=== PATIENT | female | born 1970 | race Caucasian/White ===

== ENCOUNTER → 2025-03-11 | Emergency (ER) | payer OTHER, MEDICAID ==
[~2025-03-11] VITALS: Ht 165.1 cm; Wt 61.8 kg
[~2025-03-11] MED LIST: BUPR1FIL20 SL; BUPR1TAB2 SL; CALC-1370 PO; CENO1TAB PO; CENO200T PO; CENO50TA PO; CHOL10008 PO; CLON-527 PO; CYAN10007 SQ; DULO30CA52 PO; FERR325T28 PO; GABA300C PO; HYDR12.55 PO; LAMO100T PO; LEVE500T12 PO; LEVO75TA7 PO; LOPE2CAP PO; MILK175C2 PO; MULT-1166 PO; MUPI22OI30 TOP; OLAN2.5T3 PO; OMEP-84 PO; ONDA-243 PO; ONDA4TAB9 PO; SERT-153 PO; TERB250T89 PO; VALA100031 PO
[2025-03-11 10:36] VITALS: TEMP 98.4
--- NOTE | 2025-03-11 11:03 | Physician Documentation ---
History of Present Illness ~ General Chief Complaint: Multiple Medical Complaints Stated Complaint: HAND NUMBNESS X 2 WEEKS Time Seen by MD: 10:55 OK to notify your PCP?: Yes Primary Medical Doctor: [facility] Grove Source: patient Mode of Arrival: POV Exam Limitations: no limitations History of Present Illness Initial Comments 54-year-old female with multiple medical complaints from the [place]. 1. She is complaining of right wrist pain for the past 2 weeks with some numbness in her thumb and index finger that is worse after waking up in the morning. 2. Right foot pain which started yesterday with some accompanied slight swelling and pain with ambulation, no known trauma. 3. Left lateral chest wall pain worse with certain movements, deep breaths and pain with palpation for the past couple of days, no known trauma to ribcage, no recent illness. Denies respiratory and cardiac symptoms. She takes buprenorphine daily and did have 400 mg of ibuprofen 1 hour ago with no relief. She was prescribed a prednisone Dosepak by the [facility] and has 2 doses left. She reports that she is new to the area and has not seen a specialist field engineer or a pain specialist as she does suffer from chronic pain as well as multiple spinal issues. She denies any cardiac history. Medication Reconciliation Allergies: Coded Allergies: tramadol HCl (Verified Allergy, Mild, LOWERS SIEZURE THRESHOLD, 03/11/25) codeine (Verified Allergy, Unknown, 03/11/25) prochlorperazine edisylate (Verified Allergy, Unknown, 03/11/25) prochlorperazine maleate (Verified Allergy, Unknown, 03/11/25) Scheduled Buprenorphine Hcl/Naloxone Hcl 8/2MG SL* (Suboxone 8/2 MG SL*), 3 FILM SL DAILY, (Reported) Calcium Phosphate Trib/Vit D3 (Calcium Gummies), 1 EACH PO DAILY, (Reported) Cholecalciferol (Vitamin D3), 1,000 UNIT PO DAILY, (Reported) Ferrous Sulfate* (Ferrous Sulfate*), 325 MG PO TID Gabapentin (Neurontin), 300 MG PO BID, (Reported) Levetiracetam (Keppra Xr), 1,000 MG PO BID, (Reported) Loperamide Hcl (Loperamide), 2 CAP PO Q6H Milk Thistle Fruit Extract (Milk Thistle), 175 MG PO DAILY, (Reported) Multivitamins W-Minerals (Hair, Skin & Nails), 1 EACH PO DAILY, (Reported) Olanzapine* (Zyprexa*), 2.5 MG PO HS, (Reported) Omeprazole* (Prilosec*), 40 MG PO DAILY, (Reported) Ondansetron* (Zofran Odt*), 4 MG PO Q6H Sertraline HCl (Sertraline HCl), 100 MG PO BID, (Reported) Miscellaneous Medications Clonazepam* (Klonopin*), 5 MG PO, (Reported) Past Medical History Past Medical History: Seizures, Chronic Pain, Anxiety Past Surgical History: abdominal surgery, gastric bypass, hysterectomy Alcohol Use: Heavy Drug Use: methamphetamine Lives with: Family Lives In: Homeless Occupation: unemployed Review of Systems All Other Systems at this time: Reviewed and Negative Physical Exam Physical Exam Vital Signs: RN Vital Signs have been reviewed: Yes, Temperature: 98.4, Source: Oral, Heart Rate: 78, Respiratory Rate: 16, BP: 116/70, Pulse Oximetry: 98, We ight: 61.800 Pulse Oximetry Reflects: adequate oxygenation Physical Exam General: Alert, no apparent distress. HEENT: PERRL, EOMI, no injection, moist mucous membranes. Neck: Full range of motion. Respiratory: Lungs clear, no respiratory distress. Chest: No accessory muscle use. Tenderness to palpation along left lateral [address] wall, no edema or ecchymosis noted. Cardiovascular: Regular rate and rhythm, no murmurs. Gastrointestinal: Soft, nontender, nondistended. Bowels sounds present. Extremities: Tenderness to palpation of right foot, decreased flexion due to pain, slight edema to foot, good CSM, good pulses, good sensation. Right wrist- positive Tinel sign, positive Phalen test, positive Durkan test, good CSM, good pulses, normal sensation. Neurologic: Oriented x4. Psychiatric: Normal mood and affect. Skin: Normal color, warm and dry. No edema, no ecchymosis. Progress Results/Orders Reviewed/noted all lab results: Yes Results/Orders Orders - MARILOU BAKER Foot, Complete (3vw Min) (03/11/25 10:55) Ortho Orders (03/11/25 ) Completed Orders - GERBER,MARILOU D STORAGE RECEIPT POSTER Foot, Complete (3vw Min) (03/11/25 10:55) Stat Ekg (03/11/25 ) Vital Signs 03/11/25 03/11/25 10:36 11:07 Temp 98.4 Pulse 78 Resp 16 B/P (MAP) 116/70 Pulse Ox 98 EKG/XRAY/CT/US/VASC/MRI EKG : Additional Comment Electrocardiogram: as interpreted by me; normal sinus rhythm, no axis deviation, no acute ischemia, normal intervals, no pre-excitation pattern. Rate: 65. Bone/Soft Tissue X-Ray (Ext.) : Additional Comment Right foot x-ray as interpreted by me; no joint effusion, no acute fracture, no soft tissue swelling, no dislocation, or foreign body. Heart Score: Heart Score Response (Comments) Value History N/A 0 EKG Normal 0 Age 45-64 1 Risk Factors No known risk factors 0 Troponin N/A 0 Total 1 Medical Decision Making Findings For her right wrist pain and numbness, she has positive Tinel, Durkan and Phalen test which indicates carpal tunnel syndrome of the right wrist. For this, I have provided her with a Velcro wrist splint for her to wear the especially during the nighttime to help with this. She should follow up with the steward van for a possible referral to Orthopedics if supportive measures are not helping with her symptoms she agrees with this plan. For her right foot pain, tenderness and slight edema I have ordered an x-ray to rule out a fracture. The skin is intact and there are no signs or symptoms of infection, signs of gout or signs of DVT. She does not have any tenderness to palpation along the calf of the right leg. For her left lateral chest wall pain she is tender with palpation which is worse with a deep breath and certain movements. Her EKG was normal and she has no cardiac history or risk factors. For the chest wall pain we discussed her continuing with Tylenol and ibuprofen as this appears to be musculoskeletal in nature and not of a cardiac origin. She later admits that she is having all over body pain as well. Has a history of chronic pain and she has yet to establish care with a pain specialist as well as a specialist field engineer. She has 2 days left of a prednisone Dosepak she states it has been helping her symptoms. I advised her to continue and finish out that course and then follow up with the van. Differential Diagnosis Gout, DVT, neurovascular injury, foot fracture, rib fracture, OR, PE. Departure Disposition: 01 HOME / SELF CARE / HOMELESS Impression: Primary Impression: Carpal tunnel syndrome of right wrist Additional Impressions: Foot pain, right Chronic pain Left-sided chest wall pain Condition: Stable Discharge Instructions: Carpal Tunnel Syndrome, [id number], Chest Wall Pain, [id number], RICE Therapy for Routine Care of Injuries, [id number] Additional Instructions: Continue taking your prednisone as prescribed. Please wear the velcro wrist splint, especially at nighttime, to help provide support and to help with symptoms. You can continue to take Tylenol and/or ibuprofen for pain relief of all of your complaints and keep arm elevated when sleeping. If you continue to have symptoms with your right wrist or right foot please follow up with the [facility] to establish care with a orthopedist. Your right foot x-ray was negative for fracture. Please rest, ice, elevate the foot for pain relief. Please work to establish care with a specialist field engineer to help with your chronic spine complaints and pain. For your chronic pain, you may benefit from seeing an outpatient pain specialist for which the [facility] can send that referral if needed. Return back here for any new or worsening symptoms. Referrals: NO PRIMARY CARE PROVIDER (PCP) Education Educated: Patient Educated regarding: diagnosis, treatment, prognosis, need for follow up Additional Comment Medical Screen Exam This patient recieved a medical screening examination. After reviewing the individual's medical complaints with presenting symptoms and performing an appropriate physical examination, it was determined that no immediate life- threatening emergency medical condition is present. This individual is also not a women having contractions. Signature Scribe Signature: . Attestation: Scribed for Marilou Baker by Marilou Sanchez NP . 03/11/25 11:54 Parts of this note were created using [employer] voice recognition software program. While efforts were made to correct any mistakes made by this voice recognition software program, nonsensical phrases may remain in this note. In addition, there may be errors and syntax, grammar, content and spelling. MARILOU BAKER Mar 11, 2025 11:03
--- NOTE | 2025-03-11 11:08 | ELECTROCARDIOGRAPH REPORT ---
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 Chu Su Measurements Intervals [place] Rate: 65 P: 68 [place]: 160 QRS: 54 QRSD: 87 T: 44 QT: 349 QTc: 363 Interpretive Statements Sinus rhythm Borderline T wave abnormalities Electronically Signed On 03-23-2025 22:21:[address] Chu Su Please click the below link to view image of tracing.
--- NOTE | 2025-03-11 11:40 | RADIOLOGY REPORT ---
DI FOOT, COMPLETE (3VW MIN), INDICATION: right foot pain and edema TECHNICAL DATA: Frontal, oblique and lateral views were obtained of the right foot. COMPARISON: None FINDINGS: Screw hardware in the 1st metatarsal appears intact. Joint spaces are maintained. Alignment is anatomic. The hallux sesamoids appear normal. Soft tissues are within normal limits. IMPRESSION: No acute fracture or dislocation of the right foot.
[2025-03-11 12:17] VITALS: BP 100/65; PULSE 70; RESP 16; O2SAT 98
== END | disposition home or self-care (01) ==
LOC: ER 10:23
DX: G56.01 Carpal tunnel syndrome, right upper limb (principal); M79.671 Pain in right foot; R07.89 Other chest pain; F41.9 Anxiety disorder, unspecified; F15.90 Other stimulant use, unspecified, uncomplicated; F10.90 Alcohol use, unspecified, uncomplicated; Z88.5 Allergy status to narcotic agent; Z88.8 Allergy status to other drugs, medicaments and biological substances; Z90.710 Acquired absence of both cervix and uterus; Z98.84 Bariatric surgery status; Y90.9 Presence of alcohol in blood, level not specified
CPT/HCPCS: 29125; 29515; 73630; 93005; 99283

== ENCOUNTER 2025-03-13 02:08 | Inpatient (IN) | payer OTHER, MEDICAID ==
[~2025-03-13] VITALS: Ht 165.1 cm; Wt 83.6 kg
[~2025-03-13 02:08] MED LIST changes: -BUPR1FIL20 SL; -CENO1TAB PO; -CENO200T PO; -CENO50TA PO; -CYAN10007 SQ; -DULO30CA52 PO; -HYDR12.55 PO; -LAMO100T PO; -LEVO75TA7 PO; -MUPI22OI30 TOP; -ONDA-243 PO; -TERB250T89 PO; -VALA100031 PO
--- NOTE | 2025-03-13 02:54 | Physician Documentation ---
History of Present Illness General Chief Complaint: Multiple Medical Complaints Stated Complaint: SWELLING TO R LEG AND R HAND AND NECK PAIN Time Seen by MD: 02:53 Primary Medical Doctor: brody borges History of Present Illness Initial Comments 54-year-old female with multiple complaints. The patient has been seen at our facility recently as well as at [facility]. She started with a have a left-sided anterior chest wall pain that was pleuritic in nature. Patient states she was worked up to include a CT scan for this left-sided chest pain she states over last several days she has had swelling and pain to her dorsal right foot. She states it hurts to extend her right foot. The patient also states that she had some swelling initially two weeks ago when her symptoms started to that right hand. She states that over the last 48 hours she developed worsening pain redness and swelling to that right hand she states her pain is moderate to severe. She denies any fevers or chills she states she has a known heart murmur. The patient denies any recent sexually transmitted diseases. Medication Reconciliation Allergies: Coded Allergies: tramadol HCl (Verified Allergy, Mild, LOWERS SIEZURE THRESHOLD, 03/13/25) codeine (Verified Allergy, Unknown, 03/13/25) prochlorperazine edisylate (Verified Allergy, Unknown, 03/13/25) prochlorperazine maleate (Verified Allergy, Unknown, 03/13/25) Scheduled Buprenorphine HCl/Naloxone HCl (Buprenorphine-Nalox 8-2Mg Film), 1 FILM SL TID, (Reported) Calcium Phosphate Trib/Vit D3 (Calcium Gummies), 1 EACH PO DAILY, (Reported) Cenobamate (Xcopri), 50 MG PO BID, (Reported) Cholecalciferol (Vitamin D3), 1,000 UNIT PO DAILY, (Reported) Duloxetine HCl (Duloxetine HCl), 3 CAP PO DAILY, (Reported) Ferrous Sulfate* (Ferrous Sulfate*), 325 MG PO TID Gabapentin (Neurontin), 300 MG PO BID, (Reported) Lamotrigine (LaMICtal tablet), 1 TAB PO BID, (Reported) Levothyroxine Sodium (Levothyroxine Sodium), 1 TAB PO QAM, (Reported) Multivitamins W-Minerals (Hair, Skin & Nails), 1 EACH PO DAILY, (Reported) Omeprazole* (Prilosec*), 40 MG PO DAILY, (Reported) Ondansetron* (Zofran Odt*), 4 MG PO Q6H Discontinued Medications Buprenorphine Hcl/Naloxone Hcl 8/2MG SL* (Suboxone 8/2 MG SL*), 3 FILM SL DAILY, (Reported) Discontinued Reason: wrong med Cenobamate (Xcopri), 1 TAB PO DAILY, (Reported) Discontinued Reason: patient no longer taking Clonazepam* (Klonopin*), 5 MG PO, (Reported) Discontinued Reason: patient no longer taking Levetiracetam (Keppra Xr), 1,000 MG PO BID, (Reported) Discontinued Reason: patient no longer taking Loperamide Hcl (Loperamide), 2 CAP PO Q6H Discontinued Reason: patient no longer taking Milk Thistle Fruit Extract (Milk Thistle), 175 MG PO DAILY, (Reported) Discontinued Reason: patient no longer taking Olanzapine* (Zyprexa*), 2.5 MG PO HS, (Reported) Discontinued Reason: patient no longer taking Sertraline HCl (Sertraline HCl), 100 MG PO BID, (Reported) Discontinued Reason: patient no longer taking Past Medical History Past Medical History: Seizures, Chronic Pain, Anxiety Past Surgical History: abdominal surgery, gastric bypass, hysterectomy Smoking: Cigarettes, Less than 1 pack/day Alcohol Use: Heavy Drug Use: methamphetamine Lives with: Family Lives In: Homeless Occupation: unemployed Review of Systems All Other Systems at this time: Reviewed and Negative Physical Exam Physical Exam Vital Signs: Temperature: 97.9, Heart Rate: 86, Respiratory Rate: 16, BP: 107/56, Pulse Oximetry: 97 Oxygen Flow Rate: 0 Physical Exam VITALS: Reviewed and as above. GENERAL: Alert, no apparent distress. HEENT: Normocephalic, atraumatic, PERRL, EOMI, dry mucosa, no erythema RESPIRATORY: Lungs clear, normal breath sounds, no respiratory distress. CHEST: No accessory muscle use, tender left lateral ribcage in the anterior ax illary line proximally T6-T7 CV: Regular rate, rhythm, no edema, 2/6 systolic murmur best heard at the lower left sternal border, No: JVD GI: Soft, non-tender, bowels sounds present, no rebound, guarding, or rigidity BACK: No CVA tenderness, or swelling MUSCULOSKELETAL: Swelling to the dorsum of the right foot no significant warmth or erythema. Patient does have swelling to the dorsum of the right hand with the erythema and a region that has a proximally 6 x 6 cm. SKIN: Warm and dry, swelling and redness to the right hand. NEURO: Oriented x4, No motor or sensory deficit PSYCH: Normal mood and affect, no agitation Progress Results/Orders Results/Orders Orders - VTTREMAYNE EASTON MD Culture Blood (03/13/25 ) Chest,Single View (03/13/25 05:12) Page Hospitalist (03/13/25 06:00) Fill Out Med Reconciliation (03/13/25 06:00) Potassium Cl Sr Tablet (K-Dur Tablet) (03/13/25 06:25) Potassium Cl Sr Tablet (K-Dur Tablet) (03/13/25 06:25) Magnesium Cl Er Tablet (Slow-Mag Tablet) (03/13/25 06:25) Magnesium Sulf-Water 2g/50ml (Magnesium (03/13/25 06:25) Magnesium Sulf-Water 4g/100ml (Magnesium (03/13/25 06:25) Potassium Cl 40meq/1/2ns 520ml ([place] (03/13/25 06:25) K And/Or Mag Replacement (K And/Or Mag R (03/13/25 08:00) Completed Orders - TREMAYNE NOGUERA MD Cbc/Diff (03/13/25 03:51) BMP (03/13/25 03:51) Procalcitonin (03/13/25 03:51) Hydrocodone/Apap 10/325 ([place] 10/325mg (03/13/25 04:05) Ketorolac Trometh 15mg/Ml Vial (Toradol (03/13/25 04:05) Man Diff (03/13/25 04:42) Chest,Single View (03/13/25 05:12) Ceftriaxone 2gm/D5w 50ml Bag (Rocephin 2 (03/13/25 05:20) Vancomycin*Pharmacy To Dose* (Vancomycin (03/13/25 05:55) Piperacillin/Tazo 3.375gm/50ml (Zosyn 3. (03/13/25 05:55) Normal Saline 1000ml (0.9% Sodium Chlori (03/13/25 06:35) Morphine 4mg/Ml Inj. (Morphine Inj.) (03/13/25 06:35) Ondansetron Inj. (Zofran 4mg/2ml Vial) (03/13/25 06:35) C-Reactive Protein (03/13/25 04:42) MG (03/13/25 04:42) Vital Signs 03/13/25 03/13/25 03/13/25 03/13/25 02:12 03:03 03:03 04:28 Temp 97.9 97.9 Pulse 86 79 Resp 16 16 16 16 B/P (MAP) 107/56 100/61 (74) Pulse Ox 97 98 O2 Flow Rate 0 0 03/13/25 03/13/25 03/13/25 03/13/25 05:19 05:19 06:30 06:48 Temp 97.9 Pulse 77 Resp 16 16 16 15 B/P (MAP) 99/58 (72) Pulse Ox 99 O2 Flow Rate 0 03/13/25 06:58 Temp 97.9 Pulse 71 Resp 16 B/P (MAP) 91/59 (70) Pulse Ox 99 O2 Flow Rate 0 Laboratory Tests Test 03/13/25 04:42 White Blood Count 21.3 H Red Blood Count 3.67 L Hemoglobin 12.1 Hematocrit 35.9 Mean Corpuscular Volume 97.9 Mean Corpuscular Hemoglobin 33.1 H Mean Corpuscular Hemoglobin Concent 33.8 Red Cell Distribution Width 14.0 Platelet Count 396 Mean Platelet Volume 7.7 Neutrophils (%) (Auto) 94.3 H Lymphocytes (%) (Auto) 1.9 L Monocytes (%) (Auto) 3.2 Eosinophils (%) (Auto) 0 Basophils (%) (Auto) 0.6 Neutrophils # (Auto) 20.1 H Lymphocytes # (Auto) 0.4 L Monocytes # (Auto) 0.7 Eosinophils # (Auto) 0.0 Basophils # (Auto) 0.1 CBC Comment Differential Total Cells Counted 100 Neutrophils % (Manual) 91.0 H Band Neutrophils % 2.0 Lymphocytes % (Manual) 3.0 L Monocytes % (Manual) 4.0 Platelet Estimate Normal Red Blood Cell Morphology Perf Basophilic Stippling Anisocytosis 1+ Macrocytosis 1+ D-Dimer 2.39 H D-Dimer Comment Sodium Level 127 L Potassium Level 2.5 *L Chloride Level 86 L Carbon Dioxide Level 30.1 Anion Gap 11 Blood Urea Nitrogen 16 Creatinine 0.69 Estimated GFR/1.73 m2 89 BUN/Creatinine Ratio 23.2 H Glucose Level 112 H Calcium Level 8.4 L Magnesium Level 1.7 C-Reactive Protein 34.56 H Albumin 1.9 L Procalcitonin 0.74 H Chemistry Comments Medical Decision Making Findings The patient presents with migratory areas of inflammation and infection. Currently the dorsal right hand appears infected. She also has an opacity on xray, my concern is for embolic infections possibly secondary to endocarditis. The patient will be admitted to the hospitalist, the patient was given zosyn and vancomycin. Her pulse oximetry was interpreted as normal and adequate by me and her child monitor was interpreted as a sinus rhythm. PREVIOUS HOSPITALIZATIONS HAVE BEEN reviewed. Departure Admitted to Inpatient Unit: yes, to hospitalist Impression: Primary Impression: Cellulitis Qualified Codes: L03.113 - Cellulitis of right upper limb Additional Impressions: Leukocytosis Qualified Codes: D72.829 - Elevated white blood cell count, unspecified Hypokalemia Referrals: NO PRIMARY CARE PROVIDER (PCP) Signature Scribe Signature: no scribe Attestation: The note accurately reflects work and decisions made by me.Tremayne Noguera MD 03/14/25 11:00 TREMAYNE NOGUERA MD Mar 13, 2025 02:54
[2025-03-13] MEDS: HYDROcodone/acetaminophen 10/325mg tab PO ONE (04:28)
[2025-03-13] MEDS: ketorolac trometh 15mg/ml vial 15 MG/ML ML IM ONE (04:28)
[2025-03-13 04:58] LABS: MEAN PLATELET VOLUME 7.7 FL (7.4-10.4); RED CELL DISTRIBUTION WIDTH 14.0 % (11.5-14.5)
[2025-03-13 05:10] LABS: CREATININE 0.69 MG/DL (0.40-0.90); TOTAL CARBON DIOXIDE 30.1 MMOL/L (24-32); eGFR 89 ML/MIN
[2025-03-13 05:39] LABS: BANDS% (MANUAL) 2.0 % (0-10); LYMPHOCYTES % (MANUAL) 3.0 % (21-51); MONOCYTES % (MANUAL) 4.0 % (2-12); NEUTROPHILS % (MANUAL) 91.0 % (42-75)
[2025-03-13 05:40] LABS: PLATELET ESTIMATE NORMAL
[2025-03-13] MEDS: CefTRIAXone 2gm/D5W 50ml BAG 50 ML IV ONE (06:10)
[2025-03-13] MEDS: piperacillin/tazo 3.375gm/50ml 50 ML IV ONE (06:13)
[2025-03-13] MEDS ORDERED: magnesium Cl slow-release 64mg tablet PO PRN ×2 (06:25→07:45)
[2025-03-13] MEDS ORDERED: magnesium sulf-water 4G/100mL 100 ML IV PRN ×2 (06:25→07:45)
[2025-03-13] MEDS ORDERED: magnesium sulf-water 2g/50mL 50 ML IV PRN ×2 (06:25→07:45)
[2025-03-13] MEDS ORDERED: potassium Cl 40MEQ/1/2NS 520ml 520 ML IV PRN ×2 (06:25→07:45)
--- NOTE | 2025-03-13 06:38 | RADIOLOGY REPORT ---
CHEST RADIOGRAPH Indication: chest pain Technique: Single frontal view of the chest was obtained COMPARISON: None FINDINGS: Lines and Tubes: None Lungs: Focal opacity within the left apex measures approximately 5.0 cm, consistent with focal consolidation versus mass. Pleura: No effusion. No pneumothorax. Cardiomediastinal contours: Unremarkable Bones: Unremarkable IMPRESSION: Focal opacity within the left apex measuring approximately 5.0 cm consistent with focal consolidation versus mass. CT of the chest with contrast may be of further benefit in characterizing this finding.
[2025-03-13] MEDS: potassium Cl 20 mEq SR tablet PO PRN ×2 (06:47→21:21)
[2025-03-13] MEDS: ondansetron/PF 4mg/2ml inj IV ONE (06:48)
[2025-03-13] MEDS: normal saline 1000ML IV soln IVB ONE (06:48)
[2025-03-13] MEDS: morphine 4 MG/ML inj SYRINge IV ONE (06:48)
[2025-03-13] MEDS ORDERED: mag hydrox/Alum hydrox/simeth 30ml oral suspension PO PRN (07:45)
[2025-03-13] MEDS ORDERED: potassium Cl 20 mEq SR tablet PO PRN ×2 (07:45)
[2025-03-13] MEDS: K and/or MAG REPLACEMENT MC SCH (08:00)
[2025-03-13] MEDS: docusate sod 100mg capsule PO SCH (08:00)
[2025-03-13] MEDS ORDERED: K and/or MAG REPLACEMENT MC SCH (08:00)
[2025-03-13] MEDS: normal saline 1000ml 1,000 ML IV SCH (09:15)
[2025-03-13] MEDS: heparin, porcine 5000 units/ml vial SQ SCH (09:15)
[2025-03-13 10:48] LABS: URINE HCG NEGATIVE (NEG)
[2025-03-13] MEDS ORDERED: LAMO100T PO (12:54)
[2025-03-13] MEDS ORDERED: CENO200T PO (12:54)
[2025-03-13] MEDS ORDERED: DULO30CA52 PO (12:54)
[2025-03-13] MEDS ORDERED: CENO1TAB PO (12:54)
[2025-03-13] MEDS ORDERED: LEVO75TA7 PO (12:54)
--- NOTE | 2025-03-13 12:54 | VASCULAR REPORT ---
RIGHT Upper Extremity Venous Duplex Clinical History: pain Comparison: None Technique: Duplex Doppler evaluation of the venous system of the RIGHT lower neck and upper extremity including color Doppler and spectral/pulsed waveform analysis was performed. Findings: The internal jugular vein demonstrates appropriate compressibility and waveform variability. The subclavian vein is patent on color Doppler evaluation without intraluminal thrombus and demonstrates waveform variability. The visualized portion of the brachiocephalic vein is patent on color Doppler evaluation without intraluminal thrombus and demonstrates waveform variability. The axillary vein demonstrates appropriate compressibility and waveform variability. The brachial veins demonstrate appropriate compressibility and patency on Doppler evaluation. The basilic vein demonstrates appropriate compressibility and patency on Doppler evaluation. The cephalic vein demonstrates appropriate compressibility and patency on Doppler evaluation. Impression: No venous thrombus identified in the RIGHT upper extremity vessels evaluated above. Contralateral subclavian vein is patent.
[2025-03-13 15:00] VITALS: BP 111/60; PULSE 90; RESP 11; TEMP 98.5; O2SAT 98
--- NOTE | 2025-03-13 15:09 | HISTORY AND PHYSICAL-Residence ---
History & Physical Providers to CC Resident Creating Document: HARISCARLO, RES ~ History of Present Illness Primary Medical Doctor: brody borges Reason for Admit\Complaint: right hand swelling History of Present Illness 54 years old female with a history of hypothyroid, epilepsy,Chronic neuropathic pain, Anxiety Comes to Ed with Severe right hand swelling on dorsal surface which is warm to touch and associated with pain. Patient reports having gradual pain in dorsum of right hand that started few weeks ago and from last 2 days it is exacerbated and today patient reports 10/10 burning pain, very sensitive to touch, pain is aggravated by the movement of the hand and she had tried [id number] ibuprofen but did not work, patient is a homeless lives in a car and she did not mention any recent travel, insect bite, or animal bites. Patient also complained left-sided chest discomfort chest 6/10 in intensity and sharp increases with breathing and radiates to the left arm Patient also mentioned left rib pain and had right foot swelling and pain on the dorsal surface Patient denies any fever, chills, cough, urinary problems, any recent infection Patient did not mention any similar complaints in the past, she did not have any past history of CAD or [place] Allergies: Coded Allergies: tramadol HCl (Verified Allergy, Mild, LOWERS SIEZURE THRESHOLD, 03/13/25) codeine (Verified Allergy, Unknown, 03/13/25) prochlorperazine edisylate (Verified Allergy, Unknown, 03/13/25) prochlorperazine maleate (Verified Allergy, Unknown, 03/13/25) Home Medications Home Medications Active Zofran Odt* (Ondansetron HCl) 4 Mg Tab 4 Mg PO Q6H Ferrous Sulfate* (Ferrous Sulfate) 325 Mg Tablet 325 Mg PO TID Reported LaMICtal tablet (Lamotrigine) 100 Mg Tablet 1 Tab PO BID Levothyroxine Sodium 75 Mcg Tablet 1 Tab PO QAM Xcopri (Cenobamate) 12.5 Mg (14)-25 Mg (14) Tab.ds.pk Duloxetine HCl 30 Mg Capsule.dr 3 Cap PO DAILY 30 Days Neurontin (Gabapentin) 300 Mg Capsule 300 Mg PO BID Suboxone 8/2 MG SL* (Buprenorphine HCl) 1 Each Tab.subl 3 Film SL DAILY Prilosec* (Omeprazole) 20 Mg Capsule.dr 40 Mg PO DAILY Vitamin D3 (Cholecalciferol) 1,000 Unit Capsule 1,000 Unit PO DAILY Calcium Gummies (Calcium Phosphate Trib/Vit D3) 1 Each Tab.chew 1 Each PO DAILY Hair, Skin & Nails (Multivitamins W-Minerals) 1 Each Tablet 1 Each PO DAILY Past Medical History Past Medical History Seizures Hypothyroidism Chronic neuropathic pain Anxiety Raynaud's phenomen (patient reports history of left foot clot) Past Surgical History Surgical History Comment Gastric bypass in 1997 Abdominoplasty Breast reduction Hysterectomy Past Social History Social History Comment Patient is a homeless lives in her car, and had primary care physician is Dr. Cardenas She smokes vape every day and she smokes cigarette than 1 pack a day, he denies alcohol use, she uses methamphetamine Smoking: Cigarettes, Less than 1 pack/day Alcohol Use: Heavy Drug Use: Methamphetamine Lives with: Family Lives In: Homeless Occupation: unemployed ROS All Other Systems: Reviewed and Negative ROS Constitutional: No fever, chills, dizziness, weight gain or loss Eyes: No pain, erythema, discharge, blurring of vision ENT: No sore throat, epistaxis, tinnitus Cardiovascular: Reports his left side chest discomfort which increases with the breathing. Denies palpitations, syncope, lower extremity edema, paroxysmal nocturnal dyspnea Respiratory: Denies Shortness of breath, denied cough , No hemoptysis, surgical scar is present Gastrointestinal: Normal appetite. No nausea, vomiting, diarrhea, constipation, hematemesis, abdominal pain, bloating, melena or fresh blood Musculoskeletal: Redness and swelling of right hand and right leg Neurologic: No headache, neck pain, numbness or tingling of the extremities, weakness Psychiatric: No delusions, depression, loss of interest in normal activity or change in sleep pattern, hallucinations, suicidal ideations Endocrine: No fatigue, weakness, polydipsia, polyuria, change in appetite, heat or cold intolerance, sweating, dry skin Hematological: No bleeding, petechiae, bruising Allergies: No asthma or urticaria Exam Vitals: Vital Signs Date Time Temp Pulse Resp B/P (MAP) Pulse Ox O2 Delivery O2 Flow Rate FiO2 03/13/25 14:43 88 03/13/25 12:39 98.0 16 113/68 (83) 98 0 General: Awake , alert, and oriented x4, resting comfortably in the bed, patient is in acute distress due to pain HEENT: Atraumatic, normocephalic, EOMI, anicteric sclera ; pink conjunctiva Neck: Trachea midline. Supple, full range of motion, no JVD Cardiac: Regular rhythm, regular rate with 3/6 systolic murmur at mitral area Respiratory: Equal breath sounds bilaterally, no tachypnea, no wheezing ,rub or rales, Chest: No accessory muscle use, tender left lateral ribcage in the anterior axillary line proximally T6-T7 Gastrointestinal: Abdomen symmetric, non-distended, soft, non-tender, normal bowel sounds x4 quadrant, normoactive, no hepatosplenomegaly Musculoskeletal: swelling on dorsum of the right hand with the erythema and warm to touch and a region that has a proximally 6 x 6 cm, Swelling on dorsum of the right foot with no warmth or erythema Neurological: Mental status exam: alert and consciousness, orientation, memory, speech - Cranial nerve test: Cranial nerves 2-12 intact - Motor system: Nutrition, Tone 3+, Power 5/5, no involuntary movements - Sensory system: Intact - Reflex testing: Biceps, triceps and knee reflexes 2+ - Cerebellar: Normal Skin: Warm and dry Diagnostic Data Last Recorded Lab Results: 03/13/25 0442 03/13/25 0442 Diagnostic Data: Laboratory Tests Test 03/13/25 04:42 D-Dimer 2.39 MG/L FEU (0-0.50) H D-Dimer Comment Advance Care Planning Advanced Care plannin - 30 Minutes Additional Plan 54 years old female with a history of hypothyroid,Seizures,Chronic neuropathic pain, Anxiety is currently evaluated for dorsal right hand pain and swelling Right hand cellulitis Can not rule out tenosynovitis Patient presented to ED with the severe 10/10 intensity pain and swelling on the dorsum of the right hand BP-113/68, pulse -68, RR-16, temperature-98, SpO2-98 on room air WBC-21.3, H&H-12.1/35.9, neutrophils-94.3 % ESR-57 D-dimer-2.39 Na-127, K-2.5, HC03-30.1, BUN 16, creatinine-0.69, GFR 89 Lactic acid 1.6, CRP-34.56, procalcitonin-0.74 Blood culture-preliminary negative Chest x-ray-Focal opacity within the left apex measuring approximately 5.0 cm consistent with focal consolidation versus mass. Vascular ultrasound right upper extremity- No venous thrombus identified in the RIGHT upper extremity vessels evaluated above.Contralateral subclavian vein is patent. Plan: Patient was given 1 dose of ceftriaxone 2 g IV,Zosyn 3.375 IV, vancomycin pharmacy to dose IV and NS IV 2000 mL bolus given in ED Started Zosyn 4.5 g/100 mL IV q.8h started on Vancomycin pharmacy to dose CTA chest is failed to provide results today because of IV infiltration, tomorrow they are going to do again so follow up with CTA chest urinalysis, urine tox Started IV NS 150 mL/hour Follow up with CBC/CMP Pleuritic chest pain Possible injury to chest wall tenderness vs pulmonary embolism Patient presents with left-sided chest discomfort which is gradually 6/10 in intensity, sharp in nature, increased with a deep breath BP-113/68, pulse -68, RR-16, temperature-98, SpO2-98 on room air WBC-21.3, H&H-12.1/35.9, neutrophils-94.3 % ESR-57 D-dimer-2.39 Na-127, K-2.5, HC03-30.1, BUN 16, creatinine-0.69, GFR 89 Lactic acid 1.6, CRP-34.56, procalcitonin-0.74 Blood culture-preliminary negative Chest x-ray-Focal opacity within the left apex measuring approximately 5.0 cm consistent with focal consolidation versus mass.. Plan: Follow up with Troponins,EKG follow up with CTA chest Hyponatremia Na-127,Na-127, K-2.5, HC03-30.1, BUN 16, creatinine-0.69, GFR 89 Lactic acid 1.6, CRP-34.56, procalcitonin-0.74 plan: Follow up with Urine and Serum Na,Cr,Osmolality Hypothyroid Patient has a history of hypothyroidism for which she takes levothyroxine 75 mcg Plan Continue home med levothyroxine 75 mcg Follow up with a TSH Epilepsy: Patient has a history of seizures for which he take lamotrigine 100 mg p.o. b.i.d. Plan-continue home med lamotrigine 100 mg p.o. b.i.d. Continue Cenobamate 50mg PO BID Peripheral neuropathy Patient has a history of peripheral neuropathy for which she takes duloxetine 30 mg p.o. daily and gabapentin 300 mg capsules p.o. b.i.d. Plan-continue home med History of opioid use disorder: Continue buprenorphine/naloxone Code Status: Full DVT Prophylaxis: Heparin subQ Analgesia/ Sedation: Morphine Line/tubes: Peripheral PT: Ordered Prognosis: Guarding Disposition: Patient will be monitored in PCU Carlo Ledezma MD Internal Medicine Resident, PGY-1 Seen and examined the patient and reviewed PGY 1 internal notes. Right hand swelling more probably secondary to inflammatory changes tenosynovitis versus cellulitis. Patient is homeless. WBC counts are elevated but lactic acid is normal and minimal elevation of procalcitonin. ESR and CRP is elevated. Hyponatremia and hypokalemia is noted replacing per protocol. We spoke with RN Ms. Trinidad seen in the the morning and recommended to get the records from [facility] because she was evaluated with CT chest for lung 5 cm focal consolidation versus mass. D-dimers were elevated in2.35 , evaluating with CT angiography but spoke with cardiovascular surgical tech because they could not able to do the CT angiography as she got the infiltration of IV line and the sent back to the PCU and the CT angiography is scheduled on tomorrow. We will do hyponatremia workup, which could be secondary to paraneoplastic with possible lung malignancy. we will followup with ct upper extremity & cta pe. Toan Hurtado IM Resident,PGY2 Date of Service: Mar 13, 2025 Billing Provider: NATHAN GOLDSTEIN MD, SATISH, RES Mar 13, 2025 15:09 TOAN HURTADO, RES Mar 13, 2025 19:19
[2025-03-13] MEDS ORDERED: morphine 4 MG/ML inj SYRINge IV PRN (16:53)
--- NOTE | 2025-03-13 16:58 | ELECTROCARDIOGRAPH REPORT ---
[facility] Test Date: 2025-03-13 Test Time: 16:55:54 Pat Name: RACHEL HAYDEN Department: [facility] 3S Patient ID: [facility]-[id number] Room: [place] [address] B Gender: F Room Service Server: REYES : 1970 Requested By: CARLO CARBALLO Order Number: [id number] Reading MD: Dr. SAVITA Johnson Measurements Intervals [place] Rate: 78 P: 79 PA: 146 QRS: 71 QRSD: 88 T: 64 QT: 358 QTc: 408 Interpretive Statements Sinus rhythm Electronically Signed On 03-14-2025 9:04:[address] SAVITA Johnson Please click the below link to view image of tracing.
[2025-03-13] MEDS ORDERED: ibuprofen tablet 400 MG TABLET PO PRN (17:00)
[2025-03-13] MEDS: piperacillin/tazo 4.5gm/100ml 100 ML IV SCH (17:06)
[2025-03-13] MEDS: morphine 4 MG/ML inj SYRINge IV PRN (17:20)
[2025-03-13 18:00] VITALS: BP 106/61; PULSE 86; RESP 15; TEMP 98.4; O2SAT 97
[2025-03-13] MEDS ORDERED: CENO50TA PO (18:44)
[2025-03-13 20:00] VITALS: BP 106/61; PULSE 89; RESP 16; O2SAT 94
[2025-03-13] MEDS ORDERED: CENOBAMATE PO SCH (20:00)
[2025-03-13] MEDS ORDERED: VANCOMYCIN/WATER FOR INJ (PEG) 1.5GM/300 ML IVPB IV SCH (20:00)
--- NOTE | 2025-03-13 20:38 | RADIOLOGY REPORT ---
CLINICAL INDICATION: RIGHT FOOT SWELLING TECHNIQUE: FOOT CPLTDI FOOT, COMPLETE (3VW MIN) Comparison: DI FOOT, COMPLETE (3VW MIN) on DOS: 03/11/25 FINDINGS/IMPRESSION: : There is no evidence of acute fracture or dislocation. Mild generalized soft tissue edema. Prior osteotomy at the 1st metatarsal head and neck with screw in place.
[2025-03-13] MEDS: VANCOMYCIN/WATER FOR INJ (PEG) 1.5GM/300 ML IVPB IV ONE (21:17)
[2025-03-13 22:00] VITALS: BP 97/50; PULSE 90; RESP 12; TEMP 98.3; O2SAT 92
[2025-03-14] VITALS (29 sets, daily range): BP systolic 62–100; BP diastolic 28–61; PULSE 72–94; RESP 10–18; TEMP 97.2–97.8; O2SAT 93–99
[2025-03-14 06:20] LABS: LEUKOCYTE ESTERASE ,URINE NEGATIVE (Neg); NITRITES, URINE NEGATIVE (Neg); OCCULT BLOOD,URINE NEGATIVE (Neg)
[2025-03-14 06:23] LABS: URINE AMPHETAMINE SCREEN NEGATIVE (Neg); URINE BARBITUATE SCREEN NEGATIVE (Neg); URINE BENZODIAZEPINES SCREEN NEGATIVE (Neg); URINE CANNABINOID SCREEN POSITIVE (Neg); URINE COCAINE SCREEN NEGATIVE (Neg); URINE METHADONE SCREEN NEGATIVE (Neg); URINE OPIATE SCREEN POSITIVE (Neg); URINE PHENCYCLIDINE SCREEN NEGATIVE (Neg)
[2025-03-14 06:25] LABS: CREATININE 0.58 MG/DL (0.40-0.90); TOTAL CARBON DIOXIDE 17.9 MMOL/L (24-32); eCRCL 99 ML/MIN; eGFR > 90 ML/MIN
[2025-03-14 06:26] LABS: UA COLLECTION TYPE CLN CATCH MIDSTREAM
[2025-03-14 06:28] LABS: OSMOLALITY UA 280 MOSM/K (50-1400)
[2025-03-14 06:29] LABS: CREATININE,URINE RANDOM 31.0 MG/DL
[2025-03-14 06:37] LABS: MEAN PLATELET VOLUME 7.7 FL (7.4-10.4); RED CELL DISTRIBUTION WIDTH 14.2 % (11.5-14.5)
[2025-03-14] MEDS ORDERED: buprenorphine/naloxone 8mg/2mg SL tablet SL SCH (08:00)
[2025-03-14] MEDS: duloxetine 30mg CAPSULE.DR PO SCH (08:26)
[2025-03-14] MEDS: levoTHYROXINE 75mcg tablet PO SCH (08:27)
[2025-03-14] MEDS: pantoprazole 40mg Tablet.DR PO SCH (08:27)
[2025-03-14] MEDS: multivitamins, therapeutics tablet PO SCH (08:33)
[2025-03-14] MEDS: morphine 10mg/ml inj. IV PRN (08:45)
[2025-03-14] MEDS ORDERED: morphine 4 MG/ML inj SYRINge IV PRN (09:19)
[2025-03-14] MEDS ORDERED: BUPR1FIL20 SL (09:51)
--- NOTE | 2025-03-14 10:02 | VASCULAR REPORT ---
Bilateral lower extremity venous duplex Clinical History: edema Comparison: VASC VL VENOUS on DOS: 03/13/25 Findings: Duplex Doppler evaluation of the deep venous systems of both lower extremities from the common femoral veins to the popliteal veins including color Doppler and spectral/pulsed waveform analysis was performed. [employer] Right lower extremity pain/edema Vein Imaging (Right) CFV (R): Compressible, Spontaneous, Respirophasic, Augmentation Reflux: ms SFJ (R): Compressible, Spontaneous, Respirophasic, Augmentation FEM (R): Compressible, Spontaneous, Respirophasic, Augmentation Reflux: ms Reflux: ms POP (R): Compressible, Spontaneous, Respirophasic, Augmentation Reflux: ms DFV (R): Compressible, Spontaneous, Respirophasic, Augmentation Reflux: ms PTV (R): Compressible, Spontaneous, Respirophasic, Augmentation GSV (R): Compressible, Spontaneous, Respirophasic, Augmentation Reflux: ms Peroneals (R): Compressible, Spontaneous, Respirophasic, Augmentation Reflux: ms Reflux: ms Vein Imaging (Left) CFV (L): Spontaneous, Respirophasic, Augmentation Reflux: ms CONCLUSION No sonographic evidence for thrombus detected by image in the deep or superficial venous systems of the right lower extremity. All vessels interrogated were compressible and augment with distal compressions. Spontaneous, respirophasic flow is noted throughout the right lower extremity. The contralateral common femoral vein appears patent and display symmetrical waveforms. Suggesting no proximal obstruction to flow.
--- NOTE | 2025-03-14 10:32 | CONSULTATION REPORT - RESIDENT ---
Consult Providers to CC Resident Creating Document: АЛЕКСАНДР MCCONNELL, RES CC: JEN BRASHER DO History of Present Illness Reason for Admit\Complaint: Right upper extremity swelling pain and erythema, left rib pain History of Present Illness A 54-year-old female with PMH of homeless, hypothyroidism, epilepsy, chronic neuropathic pain presented to the ED in view of swelling, erythema and pain of the right hand. Patient endorses that she started to have these symptoms on the dorsal surface of the right hand few days ago that gradually worsened over the last two days. Patient is unable to recall how it started. Patient additionally endorses pain in the left rib. Patient also endorses that she has a dropped foot on the right side, At [facility], patient had a recent CT imaging which showed the left apex mass/consolidation/nodule. Patient denies fever, chills, cough, urinary symptoms. Allergies: Coded Allergies: tramadol HCl (Verified Allergy, Mild, LOWERS SIEZURE THRESHOLD, 03/13/25) codeine (Verified Allergy, Unknown, 03/13/25) prochlorperazine edisylate (Verified Allergy, Unknown, 03/13/25) prochlorperazine maleate (Verified Allergy, Unknown, 03/13/25) Home Medications Home Medications Active Zofran Odt* (Ondansetron HCl) 4 Mg Tab 4 Mg PO Q6H Ferrous Sulfate* (Ferrous Sulfate) 325 Mg Tablet 325 Mg PO TID Reported Buprenorphine-Nalox 8-2Mg Film (Buprenorphine HCl/Naloxone HCl) 8 Mg-2 Mg Film 1 Film SL TID Xcopri (Cenobamate) 50 Mg Tablet 50 Mg PO BID LaMICtal tablet (Lamotrigine) 100 Mg Tablet 1 Tab PO BID Levothyroxine Sodium 75 Mcg Tablet 1 Tab PO QAM Duloxetine HCl 30 Mg Capsule. 3 Cap PO DAILY 30 Days Neurontin (Gabapentin) 300 Mg Capsule 300 Mg PO BID Prilosec* (Omeprazole) 20 Mg Capsule. 40 Mg PO DAILY Vitamin D3 (Cholecalciferol) 1,000 Unit Capsule 1,000 Unit PO DAILY Calcium Gummies (Calcium Phosphate Trib/Vit D3) 1 Each Tab.chew 1 Each PO DAILY Hair, Skin & Nails (Multivitamins W-Minerals) 1 Each Tablet 1 Each PO DAILY Past Medical History Past Medical History Chronic neuropathic pain Raynaud's phenomenon Anxiety Hypothyroidism Seizure Past Surgical History Surgical History Comment Abdominoplasty Breast reduction Hysterectomy Gastric bypass Past Social History Social History Comment Smokes one pack of cigarettes every day, unknown duration Smokes vape every day Denies alcohol use and marijuana use Endorses methamphetamine use Patient lives in her car, homeless ROS ROS Constitutional: No fever, chills, dizziness, weight gain or loss Eyes: No pain, erythema, discharge, blurring of vision ENT: No sore throat, epistaxis, tinnitus Cardiovascular: No Shortness of breath. Chest pressure, chest discomfort, palpitations, syncope, lower extremity edema, paroxysmal nocturnal dyspnea Respiratory: No Shortness of breath and cough present, No hemoptysis Gastrointestinal: Normal appetite. No nausea, vomiting, diarrhea, constipation, hematemesis, abdominal pain, bloating, melena or fresh blood Musculoskeletal: Swelling, erythema, tenderness and pain of the right upper extremity on the dorsal side Integumentary: No change in skin, hair, nails. No swelling, bruising, abrasions Neurologic: No headache, neck pain, numbness or tingling of the extremities, weakness Psychiatric: No delusions, depression, loss of interest in normal activity or change in sleep pattern, hallucinations, suicidal ideations Endocrine: No fatigue, weakness, polydipsia, polyuria, change in appetite, heat or cold intolerance, sweating, dry skin Exam Vitals: Vital Signs Date Time Temp Pulse Resp B/P (MAP) Pulse Ox O2 Delivery O2 Flow Rate FiO2 03/14/25 06:00 74 03/14/25 02:00 97.3 10 90/58 (69) 93 Room Air 03/13/25 12:39 0 General: General: Thin built middle-aged woman, Alert, awake, oriented, not in acute distress HEENT: PERRLA, no icterus, pallor, lymphadenopathy, carotid bruit Respiratory system: Bilateral vesicular breath sounds heard, no adventitious breath sounds CVS: S1-S2 heard, no murmurs/rubs/gallop GI: Soft, nontender, no organomegaly, no guarding/rigidity, bowel sounds present Neuro: No focal neurological deficits present Extremities: Swelling erythema, tenderness, warm to touch present in the dorsal surface of the right hand Skin: Warm and dry, patchy circular bald spot present on the scalp on the left frontal region, patchy white discoloration of the skin present all over the body. Diagnostic Data Last Recorded Lab Results: 03/14/25 0619 03/14/252156 Diagnostic Data: Laboratory Tests Test 03/13/25 04:42 D-Dimer 2.39 MG/L FEU (0-0.50) H D-Dimer Comment Additional Plan Assessment: 54-year-old female with PMH of Hypothyroidism, Seizure presented to the ED in view of right upper extremity swollen pain tenderness. Patient is admitted for the evaluation management of right hand cellulitis. All the patient has positive marijuana new opiate use per urine tox, that has questionable IV drug abuse. Plan: Right hand cellulitis Tenosynovitis, less likely Sepsis, POA Clinically, the swelling looks like there is a component of IV Infiltration Received IV Zosyn q.12h (three doses) Discontinue IV Zosyn Switched to IV Rocephin 1 g Q daily (day 1/4), IV vancomycin (day 2/5) Patient requires antibiotics for five days, we will re-evaluate at day five to look for any further requirement of antibiotics Tinea capitis/cruris Terbinafine p.o. has been used as outpatient for two months per the patient Terbinafine cream topical Incidental lung findings CT imaging at [facility] showed a mass/consolidation/nodule Clinically, patient does not seem to be having pneumonia We will await CTA chest imaging to review for lung parenchyma Currently, the images uploaded does not correlate with CTA chest Disposition: Continue antibiotics for five days, re-evaluation at day five Александр Mcconnell MD Internal Medicine, PGY 2 Date of Service: Mar 14, 2025 Billing Provider: JEN BRASHER DO Addendum Patient seen and examined with Dr. Mcconnell. Agree with the above assessment and plan. At the time of our rounding, we had been asked to consult for R hand cellulitis. She also has GPC septicemia whose source is likely the R hand. She denies any intravenous drug use. She has no risk factors for metastasis though 2D echo is pending. She should continue on IV Vanc, Rocephin for now. Will follow up ID and susceptibilities for deescalation. Repeat blood cultures to ensure clearance; hold indwelling access for now. АЛЕКСАНДР MCCONNELL, RES Mar 14, 2025 10:32 JEN BRASHER DO Mar 14, 2025 22:29
[2025-03-14] MEDS: vancomycin/NS 1 GM ADD-VANTAGE 250 ML IV SCH (11:03)
[2025-03-14] MEDS: buprenorphine/naloxone 8MG-2MG SUBlingual film SL SCH (11:05)
[2025-03-14] MEDS: normal saline 1000ml 1,000 ML IV ONE ×4 (11:40→16:06)
[2025-03-14] MEDS: terbinafine cream 30gm TP SCH (12:15)
[2025-03-14] MEDS: lactose-reduced food (Ensure Enlive) - 237ml bottle PO SCH (13:00)
[2025-03-14] MEDS: CefTRIAXone/D5W-Rocephin 1gm 50 ML IV SCH (14:14)
[2025-03-14] MEDS: albumin (human) 25% 100 ML IV solution IV ONE ×2 (14:50→23:41)
--- NOTE | 2025-03-14 18:05 | PROGRESS NOTE- Residence ---
Progress Note - Resident Providers to CC Resident Creating Document: CARLO LEDEZMA RES ~ Antibiotic Timeout Antibiotic Ordered?: Yes Subjective Patient was examined at the bedside, she still complaints right hand pain and she also mentioned groin pain Objective Vital Signs Date Time Temp Pulse Resp B/P (MAP) Pulse Ox O2 Delivery O2 Flow Rate FiO2 03/14/25 16:13 82/43 (56) 03/14/25 08:00 Room Air 03/14/25 06:00 74 03/14/25 02:00 97.3 10 93 03/13/25 12:39 0 Result Diagram: 03/14/25 0619 03/14/25 0539 General- patient is alert , awake HEENT: Atraumatic, normocephalic, EOMI, anicteric sclera ; pink conjunctiva Neck: Trachea midline. Supple, full range of motion, no JVD Cardiac: Regular rhythm, regular rate with 2/6 ESM systolic murmur at left lower sternal border,aortic area. Respiratory: Equal breath sounds bilaterally, no tachypnea, no wheezing ,rub or rales, Chest: No accessory muscle use, tender left lateral ribcage in the anterior axillary line proximally T6-T7 Gastrointestinal: Abdomen symmetric, non-distended, soft, non-tender, normal bowel sounds x4 quadrant, normoactive, no hepatosplenomegaly Musculoskeletal: swelling on dorsum of the right hand with the erythema and warm to touch and a region that has a proximally 6 x 6 cm, Swelling on dorsum of the right foot with no warmth or erythema Neurological: Mental status exam: alert and consciousness, orientation, memory, speech - Cranial nerve test: Cranial nerves 2-12 intact - Motor system: Nutrition, Tone 3+, Power 5/5, no involuntary movements - Sensory system: Intact - Reflex testing: Biceps, triceps and knee reflexes 2+ - Cerebellar: Normal Skin: Warm and dry Coagulation Studies Laboratory Tests Test 03/13/25 04:42 D-Dimer 2.39 MG/L FEU (0-0.50) H D-Dimer Comment Advance Care Planning Advanced Care plannin - 30 Minutes Plan Plan 54 years old female with a history of hypothyroid,Seizures,Chronic neuropathic pain, Anxiety is currently evaluated for dorsal right hand pain and swelling Right hand cellulitis possible Right hand septic arthritis vs Tenosynovitis 2/2 Gram Positive Cocci( Staphylocci),possible MRSA Severe Sepsis Patient presented to ED with the severe 10/10 intensity pain and swelling on the dorsum of the right hand BP-113/68, pulse -68, RR-16, temperature-98, SpO2-98 on room air WBC-21.3, H&H-12.1/35.9, neutrophils-94.3 % ESR-57 D-dimer-2.39 Na-127, K-2.5, HC03-30.1, BUN 16, creatinine-0.69, GFR 89 Lactic acid 1.6, CRP-34.56, procalcitonin-0.74 Blood culture-preliminary negative Chest x-ray-Focal opacity within the left apex measuring approximately 5.0 cm consistent with focal consolidation versus mass. Vascular ultrasound right upper extremity- No venous thrombus identified in the RIGHT upper extremity vessels evaluated above.Contralateral subclavian vein is patent. Plan: Patient was given 1 dose of ceftriaxone 2 g IV,Zosyn 3.375 IV, vancomycin pharmacy to dose IV and NS IV 2000 mL bolus given in ED Started Zosyn 4.5 g/100 mL IV q.8h started on Vancomycin pharmacy to dose CTA chest is failed to provide results today because of IV infiltration, tomorrow they are going to do again so follow up with CTA chest urinalysis, urine tox Started IV NS 150 mL/hour Follow up with CBC/CMP 03/14/2025 Patient still complain pain the right hand even with slight touch Today patient had severe low blood pressure- 69/35 mmHg, pulse rate 72, SpO2 93 on room air Albumin-1.3 Blood culture - Gram-positive cocci and follow-up with sensitivity WBC-18.1, H and H- 11.9/35.2 Urine tox positive for cannabinoids and opiates ID doctor examined the patient and discontinue Zosyn and switch to Rocephin 1 g IV daily Plan Given 2 1000 mL IV NS bolus Continue IV NS 125 mL per hour Ordered PICC line Follow-up with echocardiogram Started Rocephin 1 g IV daily (day 1/) Continue vancomycin pharmacy to dose IV (day 07/27) Consider adding bicarb in D5 NS if blood pressure is low Chest Pain 2/2 below Primary Pulmonary Malignancy with possible chest wall extension/Metastasis). Possible injury to chest wall tenderness vs pulmonary embolism Patient presents with left-sided chest discomfort which is gradually 6/10 in intensity, sharp in nature, increased with a deep breath BP-113/68, pulse -68, RR-16, temperature-98, SpO2-98 on room air WBC-21.3, H&H-12.1/35.9, neutrophils-94.3 % ESR-57 D-dimer-2.39 Na-127, K-2.5, HC03-30.1, BUN 16, creatinine-0.69, GFR 89 Lactic acid 1.6, CRP-34.56, procalcitonin-0.74 Blood culture-preliminary negative Chest x-ray-Focal opacity within the left apex measuring approximately 5.0 cm consistent with focal consolidation versus mass.. Follow up with the echocardiogram Hypovolemic Hypotonic Hyponatremia 2/2 Dehydration Na-127,Na-127, K-2.5, HC03-30.1, BUN 16, creatinine-0.69, GFR 89 Lactic acid 1.6, CRP-34.56, procalcitonin-0.74 plan: Follow up with Urine and Serum Na,Cr,Osmolality 03/14/25 Na-126, k-3.7, bicarb-17.9 Urine osmolality-280, urine creatinine-31, urine sodium-less than 15, urine potassium-T7, serum osmolality-255 Plan Continue IV NS 125 mL/hour Hypothyroidism Patient has a history of hypothyroidism for which she takes levothyroxine 75 mcg and patient is compliant with the medication TSH-0.77 Plan Continue home med levothyroxine 75 mcg Epilepsy Patient has a history of seizures for which he take lamotrigine 100 mg p.o. b.i.d. Plan-continue home med lamotrigine 100 mg p.o. b.i.d. Continue Cenobamate 50mg PO BID Peripheral neuropathy Patient has a history of peripheral neuropathy for which she takes duloxetine 30 mg p.o. daily and gabapentin 300 mg capsules p.o. b.i.d. Plan-continue home med History of opioid use disorder: Continue buprenorphine/naloxone Discontinued Opiods in view of hypotension. History of genital herpes We will continue home med valacyclovir a 1000 mg p.o. daily Code Status: Full DVT Prophylaxis: Heparin subQ Analgesia/ Sedation: Morphine Line/tubes: Peripheral PT: Ordered Prognosis: Guarding Disposition: Patient will be monitored in PCU and ID doctor recommended changing antibiotics from Zosyn to Rocephin 1 g IV for 4 days Carlo Ledezma MD Internal Medicine Resident, PGY-1 PGY 2 NOTE & ADDENDUM PGY2 resident attestation: I have seen and evaluated the patient independently. I have reviewed the history, physical examination, laboratory and imaging findings and the assessment and plan documented by the PGY1 resident. I agree with the findings and plan as documented with the following additions/modifications: Seen & examined the patient. reviewed the notes &edited some portions of the note.patient is hypotensive on today -sbp 60-70 mm of Hg but her baseline sbp is 80-90s.we gave 4 litres of normal saline, 25 % Human albumin and continued IVNS @125ML/HR. we gave sign out to night resident about possible icu transfer for Pressor support if she continues to be hypotensive. reviewed CT upper extremity WHICH showed Generalized Soft Tissue Edema & CT Angiography which ruled out pulmonary embolism but revelead Left upper lobe peripheral mass with suspected invasion of the chest wall. The diagnosis of exclusion is a primary pulmonary malignancy.we will Consult on tomorrow AM for possible bronchoscopy. Per , we are continuing Ceftriaxone, vancomycin. pending Echo report. Hyponatremia seems to be secondary Hypovolemic Hypotonic -Dehydration based on Urine lytes. Blood cultures showed Gram Positive Cocci( possible Staphylcocci Aureus,MRSA). Critical care time 35 minutes. Toan Hurtado IM Resident,PGY-2. Date of Service: Mar 14, 2025 Billing Provider: NATHAN GOLDSTEIN MD Common Visit Codes: 90634-[id number] CARE 30-74 MIN CARLO LEDEZMA, RES Mar 14, 2025 18:05 TOAN HURTADO RES Mar 14, 2025 21:15 NATHAN GOLDSTEIN MD Apr 05, 2025 08:42
[2025-03-14] MEDS ORDERED: iohexol 350 MG/ML 50ML vial IV ONE (18:10)
--- NOTE | 2025-03-14 19:13 | RADIOLOGY REPORT ---
CTA Chest with intravenous contrast INDICATION: PULMONARY EMBOLISM, RESCHEDULED PER MD COMPARISON: None TECHNIQUE: Multidetector spiral CTA of the chest was performed of the chest with intravenous contrast. PULMONARY ANGIOGRAPHY PROTOCOL was utilized using a bolus- tracking technique centered on the main pulmonary artery. Axial, coronal and sagittal multiplanar and MIP reformats were performed. Radiation dose : 1. Chest: CTDI volume is 20.43 mGy. Dose-length product is 797.78 mGy*cm The dose indicators for CT are the volume computed tomography (CT) dose index (CTDIvol) and the dose length product (DLP), and are measured in units of mGy and mGy-cm, respectively. These indicators are not patient dose, but values generated from the CT scanner acquisition factors. The report includes radiation exposure data for exposures received during this examination. Findings: Pulmonary artery: No pulmonary embolism Lower neck: Normal thyroid. Lungs: Left upper lobe anterior peripheral mass measuring 5.5 x 4.0 cm. Suspected invasion of the adjacent left anterolateral chest wall. Scarring in the left perihilar region. Background of mild peripheral reticular / interstitial changes throughout both lungs. Heart/Vascular Structures: Normal heart size. No pericardial effusion. Lymph Nodes: No adenopathy Pleura: Small bilateral effusions. OK Musculoskeletal: No acute osseous abnormality. Soft tissues: Generalized soft tissue edema. Upper abdomen: Limited portions of the upper abdomen are unremarkable. IMPRESSION: 1. No pulmonary embolism. 2. Left upper lobe peripheral mass with suspected invasion of the chest wall. The diagnosis of exclusion is a primary pulmonary malignancy. Tissue sampling recommended.
--- NOTE | 2025-03-14 19:45 | RADIOLOGY REPORT ---
INDICATION: pain/swelling COMPARISON: None TECHNIQUE: CT of the right upper extremity was performed with contrast. Volume transverse images were obtained and reconstructed in multiple planes using bone and soft tissue algorithms. Radiation Dose Information: CT Dose: CTDI volume is 3.04 mGy. Dose-length product is 87.45 mGy*cm Contrast: 150 ml of omnipaque 350 FINDINGS: The alignment is normal. The joint spaces are normal. There is no fracture, dislocation or aggressive osseous lesion. No erosive changes. There is no joint effusion. Generalized soft tissue edema. No abscess. IMPRESSION: 1. No acute fracture or dislocation. 2. Generalized soft tissue edema. 3. No abscess.
[2025-03-14] MEDS: sodium bicarbonate 1meq/ml inj 150 ML in dextrose 5%-water 1,000 ML IV SCH (20:50)
[2025-03-14] MEDS: LACOSAMIDE 200mg/20ml inj. 200 MG in normal saline 100ml IV soln 100 ML IV SCH (21:54)
--- NOTE | 2025-03-14 22:12 | ELECTROCARDIOGRAPH REPORT ---
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 SAVITA Johnson Measurements Intervals [place] Rate: 74 P: 51 AR: 159 QRS: 43 QRSD: 92 T: 43 QT: 354 QTc: 393 Interpretive Statements Sinus rhythm Low voltage, precordial leads Borderline T abnormalities, anterior leads Electronically Signed On 03-15-2025 14:42:[address] SAVITA Johnson Please click the below link to view image of tracing.
[2025-03-14 22:19] LABS: CREATININE 0.76 MG/DL (0.40-0.90); PHOSPHORUS 1.7 MG/DL (2.3-4.5); TOTAL CARBON DIOXIDE 19.4 MMOL/L (24-32); eCRCL 76 ML/MIN; eGFR 79 ML/MIN
[2025-03-14] MEDS ORDERED: NORepinephrine 8mg/ 250ml NS 250 ML IV PRN (23:15)
[2025-03-14] MEDS: NORMAL SALINE IV SCH (23:20)
[2025-03-14] MEDS: MEROPENEM IV SCH (23:20)
--- NOTE | 2025-03-14 23:37 | HISTORY AND PHYSICAL ---
History & Physical - Short Providers to CC ~ History of Present Illness Chief Complain & History Right arm swelling and shock 54 yrs female admitted to medicine team for right arm cellulites and GPC bacteremia tonight developed shock and not fluid responsive after receiving 4L.Hx of homelessness, recent lung diagnosis of lung mass yet to have biopsy. CT hand did not show abscess on admission Relevant Social History\Habits Exsmoker Allergies: Coded Allergies: tramadol HCl (Verified Allergy, Mild, LOWERS SIEZURE THRESHOLD, 03/13/25) codeine (Verified Allergy, Unknown, 03/13/25) prochlorperazine edisylate (Verified Allergy, Unknown, 03/13/25) prochlorperazine maleate (Verified Allergy, Unknown, 03/13/25) Home Medications Home Medications Active Zofran Odt* (Ondansetron HCl) 4 Mg Tab 4 Mg PO Q6H Ferrous Sulfate* (Ferrous Sulfate) 325 Mg Tablet 325 Mg PO TID Reported Buprenorphine-Nalox 8-2Mg Film (Buprenorphine HCl/Naloxone HCl) 8 Mg-2 Mg Film 1 Film SL TID Xcopri (Cenobamate) 50 Mg Tablet 50 Mg PO BID LaMICtal tablet (Lamotrigine) 100 Mg Tablet 1 Tab PO BID Levothyroxine Sodium 75 Mcg Tablet 1 Tab PO QAM Duloxetine HCl 30 Mg Capsule. 3 Cap PO DAILY 30 Days Neurontin (Gabapentin) 300 Mg Capsule 300 Mg PO BID Prilosec* (Omeprazole) 20 Mg Capsule.dr 40 Mg PO DAILY Vitamin D3 (Cholecalciferol) 1,000 Unit Capsule 1,000 Unit PO DAILY Calcium Gummies (Calcium Phosphate Trib/Vit D3) 1 Each Tab.chew 1 Each PO DAILY Hair, Skin & Nails (Multivitamins W-Minerals) 1 Each Tablet 1 Each PO DAILY Exam Last recorded Lab results: 03/14/25 0619 03/14/25 2157 Vitals: Vital Signs Date Time Temp Pulse Resp B/P (MAP) Pulse Ox O2 Delivery O2 Flow Rate FiO2 03/14/25 18:30 86 03/14/25 17:16 79/39 (52) 03/14/25 15:00 97.8 13 97 Room Air 03/13/25 12:39 0 Cardiac: Patient evaluated using HIPPA complaint AV device right dorsum of the hand swollen and tender when she touches Diagnostic Data Diagnostic Data: Laboratory Tests Test 03/13/25 04:42 D-Dimer 2.39 MG/L FEU (0-0.50) H D-Dimer Comment Advance Care Planning Advanced Care planning: N/A Problem\Assessment\Plan Additional Plan Septic Shock from below Right hand cellulites vs abscess formation GPC bacteremia New ADONIS lung mass Malnutrition Continue vancomycin and ceftriaxone Start albumin and levophed Echocardiogram to assess for vegetation Surgery consult in Am to evaluate if there is evolving abscess Need lung mass evaluation when stable CCT 60mins Priya Abbott MD ENUH, HILL A MD Mar 14, 2025 23:37
[2025-03-14] MEDS: albumin (human) 25% 100ml IV 100 ML IV ONE (23:39)
[2025-03-14] MEDS: NORepinephrine 8mg/ 250ml NS 250 ML IV PRN (23:41)
[2025-03-15] VITALS (22 sets, daily range): BP systolic 89–135; BP diastolic 45–80; PULSE 72–96; RESP 10–19; TEMP 98.3; O2SAT 94–98
[2025-03-15 07:24] LABS: MEAN PLATELET VOLUME 7.5 FL (7.4-10.4); RED CELL DISTRIBUTION WIDTH 14.6 % (11.5-14.5)
[2025-03-15 07:52] LABS: CREATININE 0.67 MG/DL (0.40-0.90); TOTAL CARBON DIOXIDE 23.7 MMOL/L (24-32); eCRCL 86 ML/MIN; eGFR > 90 ML/MIN
[2025-03-15 08:12] LABS: PHOSPHORUS 2.0 MG/DL (2.3-4.5)
[2025-03-15] MEDS: ketorolac trometh 15mg/ml vial 15 MG/ML ML IV PRN (08:17)
[2025-03-15] MEDS: lactobacillus rhamnosus 10,000 MMU CELLS/CAPSULE PO SCH (08:23)
[2025-03-15] MEDS: VANCOMYCIN LEVEL IV ONE (09:01)
[2025-03-15 09:12] LABS: HBSAG SCREEN Negative (Negative); HEP B CORE AB, IGM Negative (Negative); HEP B CORE AB, TOT Negative (Negative)
[2025-03-15] MEDS: albumin (human) 25% 100 ML IV solution IV ONE (09:13)
[2025-03-15] MEDS: albumin (Human) 5% 250ml 250 ML IV SCH (10:45)
[2025-03-15] MEDS: ringers solution, lacted 1,000 ML IV SCH (10:46)
--- NOTE | 2025-03-15 11:46 | PROGRESS NOTE- Residence ---
Progress Note - Resident Providers to CC Resident Creating Document: BORIS MCCONNELL RES CC: HAILE MOSQUEDA MD ~ Antibiotic Timeout Antibiotic Ordered?: Yes Subjective Patient was examined at bedside. Patient continues to complain of pain in the right upper extremity in the dorsum of the hand with swelling that has not progressed or worsened. Patient also has chest pain with tenderness on the sternoclavicular joint. Patient had low blood pressure in the range of 90s that did not improve with 4 L IV fluids, was transferred to the ICU in view of requiring norepinephrine drip and septic shock. Objective Vital Signs Date Time Temp Pulse Resp B/P (MAP) Pulse Ox O2 Delivery O2 Flow Rate FiO2 03/15/25 11:00 84 11 90/45 (60) 97 Room Air 03/15/25 03:00 98.4 03/13/25 12:39 0 Result Diagram: 03/15/2555 03/15/25654 General: Thin built middle-aged woman, Alert, awake, oriented, not in acute distress HEENT: PERRLA, no icterus, pallor, lymphadenopathy, carotid bruit Respiratory system: Bilateral vesicular breath sounds heard, no adventitious breath sounds, tenderness of the left sternoclavicular joint CVS: S1-S2 heard, grade 3/6 HSM in the mitral area radiating to the tricuspid area GI: Soft, nontender, no organomegaly, no guarding/rigidity, bowel sounds present Neuro: No focal neurological deficits present Extremities: Swelling erythema, tenderness, warm to touch present in the dorsal surface of the right hand Skin: Warm and dry, patchy circular bald spot present on the scalp on the left frontal region, patchy white discoloration of the skin present all over the body. Coagulation Studies Laboratory Tests Test 03/13/25 04:42 D-Dimer 2.39 MG/L FEU (0-0.50) H D-Dimer Comment Assessment Assessment 54-year-old female with PMH of Hypothyroidism, Seizure presented to the ED in view of right upper extremity swollen pain tenderness. Patient is admitted for the evaluation management of right hand cellulitis. CT chest was reviewed which showed mass that was invading the chest wall, patient has a remote methamphetamine abuse (possible IV drug abuse). Patient endorses tenderness of the sternoclavicular joint in the left side, suspicion for possible sternoclavicular joint infection. Patient's blood cultures turned out to be positive for MRSA. Plan Plan Plan: Right hand cellulitis Tenosynovitis, less likely Sepsis, POA Received IV Zosyn early on Discontinue IV Rocephin Continue IV vancomycin (day 3) Consider orthopedic referral in view of nonprogressive swelling and pain Recommend elevation of right upper extremity MRSA bacteremia Blood cultures positive for MRSA Possible source right hand cellulitis/IV drug abuse Follow up with repeat blood cultures No PICC line until blood cultures are sterile Left sternoclavicular joint infection History of possible IV drug abuse CT chest: Left upper lobe peripheral mass with suspected invasion of the chest wall. Consider interval CT chest to look for progression of the mass/?abscess Most likely secondary to bloodstream infection Continue antibiotics as per above Might require at least six weeks of antibiotics Endocarditis, rule out Echo: Mobile interatrial septum. Normal MV annulus with thickened leaflets without stenosis. Moderate MR. Consider LACI Septic shock Most likely secondary to sternoclavicular joint infection, bacteremia and cellulitis Titrate norepinephrine drip per ICU shirt turner IV fluid resuscitation and albumin per ICU shirt turner Tinea capitis/cruris Terbinafine p.o. has been used as outpatient for two months per the patient Terbinafine cream topical Disposition: Continue antibiotics as per above, follow up with repeat blood cultures, orthopedic referral and LACI Boris Mcconnell MD Internal Medicine, PGY 2 Agree with above note. Patient seen and examined with Dr. Mcconnell. Continue IV vancomycin. Concern that she has septic arthritis with abscess formation at left sternoclavicular joint likely due to hematogenous spread. Date of Service: Mar 15, 2025 Billing Provider: HAILE MOSQUEDA MD, SIVA, RES Mar 15, 2025 11:46 HAILE MOSQUEDA MD Mar 15, 2025 19:01
[2025-03-15] MEDS: cholecalciferol (vitamin D3) 1,000 unit (25mcg) tablet PO SCH (13:00)
[2025-03-15] MEDS: calcium carbonate 500mg tablet PO SCH (13:00)
[2025-03-15] MEDS: MULTIVIT-MIN/FERROUS GLUCONATE 9 MG/15 ML LIQUID PO SCH (13:01)
--- NOTE | 2025-03-15 13:27 | PROGRESS NOTE ---
Subjective Subjective Patient was examined at bedside. Patient continues to complain of pain in the right upper extremity in the dorsum of the hand with swelling that has not progressed or worsened. Patient also has chest pain with tenderness on the sternoclavicular joint. Patient had low blood pressure in the range of 90s that did not improve with 4 L IV fluids, was transferred to the ICU in view of requiring norepinephrine drip and septic shock. Reason for visit: Pulmonary critical care consultation Reviewed: Care Plan, H&P, Labs, Medications, Radiology Review of Systems Changes from previous H/P or p: No Changes Daily Progress Note Exam Vitals Vital Signs Date Time Temp Pulse Resp B/P (MAP) Pulse Ox O2 Delivery O2 Flow Rate FiO2 03/15/25 12:00 82 11 90/48 (62) 97 Room Air 03/15/25 03:00 98.4 03/13/25 12:39 0 Result Diagram: 03/15/25 0655 03/15/25 0655 Exam General: Thin built middle-aged woman, Alert, awake, oriented, not in acute distress HEENT: PERRLA, no icterus, pallor, lymphadenopathy, carotid bruit Respiratory system: Bilateral vesicular breath sounds heard, no adventitious breath sounds, tenderness of the left sternoclavicular joint CVS: S1-S2 heard, grade 3/6 HSM in the mitral area radiating to the tricuspid area GI: Soft, nontender, no organomegaly, no guarding/rigidity, bowel sounds present Neuro: No focal neurological deficits present Extremities: Swelling erythema, tenderness, warm to touch present in the dorsal surface of the right hand Skin: Warm and dry, patchy circular bald spot present on the scalp on the left frontal region, patchy white discoloration of the skin present all over the body. Results Coagulation Studies Laboratory Tests Test 03/13/25 04:42 D-Dimer 2.39 MG/L FEU (0-0.50) H D-Dimer Comment VTE VTE Risk Score VTE Risk Score Reference Ranges: Score 0-1 = Low Risk (Aggressive mobilization; early ambulation; no VTE prophylaxis required) Score 2: Moderate Risk (Intermittent/Pneumatic Compression Device OR Lovenox/Heparin/Coumadin) Score 3-4: High Risk (Intermittent/Pneumatic Compression Device AND Lovenox/Heparin/Coumadin) Score > or = 5: Highest Risk (Intermittent/Pneumatic Compression Device AND Lovenox/Heparin/Coumadin) Assessment/Plan Assessment 54-year-old female with PMH of Hypothyroidism, Seizure presented to the ED in view of right upper extremity swollen pain tenderness. Patient is admitted for the evaluation management of right hand cellulitis. CT chest was reviewed which showed mass that was invading the chest wall, patient has a remote methamphetamine abuse, (possible IV drug abuse). Patient endorses tenderness of the sternoclavicular joint in the left side wheezing suspicion for possible sternoclavicular joint infection history of IV drug abuse Patient's blood cultures turned out to be positive for MRSA. Plan Septic Shock from below Right hand cellulites vs abscess formation GPC bacteremia identified as MRSA New ADONIS lung mass: Seems benign as rounded atelectasis or consolidation rather than a malignancy. Repeat CT of the chest in six weeks. Malnutrition Hypokalemia and hypophosphatemia Continue vancomycin and discontinue ceftriaxone Start albumin for septic shock with an initial bolus of 400 cc of 25% albumin and then a continuous infusion of 5% albumin at 75 mL/hour and levophed. Titrate Levophed to a mean arterial pressure of at least 65 mmHg. Initiate lactated Ringer's at 150 mL/hour but reduced to 75 mL/hour once the 5% albumin is running at 75 mL/hour. Echocardiogram to assess for vegetation Surgery consult in Am to evaluate if there is evolving abscess Need lung mass evaluation in 6-8 weeks. Replace electrolytes per protocol. Homelessness: We will need to be addressed by case management. Prophylaxis: Protonix 40 mg IV q.day and initiate heparin 5000 units subcutaneously q.8 hours. Overall prognosis remains guarded Critical care time in excess of 35 minutes. Expected Outcome/Goals Expected Outcomes/Goals: Meet minimum 75% estimated protein and energy needs, ONS acceptance, wt maintenance, bowel regularity, skin integrity TAJ FORBES MD Mar 15, 2025 13:27
--- NOTE | 2025-03-15 14:52 | CARDIOLOGY REPORT ---
APPROVED REPORT EXAM: Comprehensive 2D, Doppler, and color-flow Echocardiogram. Patient Location: [facility] Heart Rate: 75 bpm Rhythm: SINUS Indications MURMUR ?INFECTED RIGHT HAND METHAMPHETAMINE ABUSE GASTRIC BYPASS ' Joint Creaser: NONE Previous echo: NONE 2D Dimensions RVDd 2.8 cm LA Diam 4.8 cm LVOT Diameter 1.96 (1.8-2.4cm) CO 6.7 L/min M-Mode Dimensions Left Atrium(MM) 3.87 (2.5-4.0cm) IVSd 1.06 (0.7-1.1cm) LVDd 5.46 (4.0-5.6cm) Aortic Root 2.87 (2.2-3.7cm) PWd 1.03 (0.7-1.1cm) Aortic Cusp Exc 2.17 (1.5-2.0cm) IVSs 1.54 cm MV EPSS 0.6 (<0.5cm) LVDs 3.59 (2.0-3.8cm) FS (%) 34 % PWs 1.65 cm ESV(Teich) 54.0 ml LVEF(%) 59 (>50%) Aortic Valve AoV Peak Yonny. 178.1 cm/s AoV VTI 36.0 cm AO Peak GR. 12.7 mmHg AO Mean GR. 6 mmHg LVOT VTI 32.30 cm LVOT Peak Yonny. 153.5 cm/s MATEO(VTI)/BSA 2.71 cm2/m2 MATEO (VTI) 2.71 cm2 AV DI 0.91 % Mitral Valve MV E Velocity 80.8 cm/s MV DECEL TIME 188 ms MV A Velocity 96.7 cm/s MV PHT 65 ms E/A Ratio 0.8 MVA (PHT) 3.67 cm2 Tricuspid Valve TR P. Velocity 301 cm/s RAP ESTIMATE 10 mmHg TR Peak Gr. 36 mmHg RVSP 46 mmHg Pulmonary Vein S1 Velocity 43.3 cm/s D2 Velocity 40.2 cm/s PVa Velocity 32.6 cm/s PVa Duration 108 msec LEFT VENTRICLE Upper limit normal LV size with normal wall thickness. Overall systolic function is normal. Overall LVEF is about 60%. RIGHT VENTRICLE RV is normal size and function. Estimated PA systolic pressure of 46 mm of mercury. ATRIA Left atrium is mildly dilated. Mobile interatrial septum - no flow detected. AORTIC VALVE Trileaflet AV appears mildly sclerotic without stenosis or insufficiency. MITRAL VALVE Normal MV annulus with thickened leaflets without stenosis. Moderate regurgitation (best apically/subcostally). TDS Doppler? TRICUSPID VALVE TV appears structurally normal with moderate regurgitation. PULMONIC VALVE Normal PV without stenosis, physiologic insufficiency. (best subcostally) GREAT VESSELS Aortic root is normal in size. Normal appearing arch with normal flow velocities. Ascending aorta is normal in size. PERICARDIUM Normal pericardium. No effusion. Other Information Study Quality: Adequate Conclusion Overall LVEF is about 60%. Upper limit normal LV size with normal wall thickness. Overall systolic function is normal. RV is normal size and function. Estimated PA systolic pressure of 46 mm of mercury. Left atrium is mildly dilated. Mobile interatrial septum - no flow detected. Trileaflet AV appears mildly sclerotic without stenosis or insufficiency. Normal MV annulus with thickened leaflets without stenosis. Moderate regurgitation (best apically/subcostally). TDS Doppler? TV appears structurally normal with moderate regurgitation. Normal PV without stenosis, physiologic insufficiency. (best subcostally) Normal pericardium. No effusion.
--- NOTE | 2025-03-15 15:35 | PROGRESS NOTE- Residence ---
Progress Note - Resident Providers to CC Resident Creating Document: CARLO LEDEZMA RES ~ Antibiotic Timeout Antibiotic Ordered?: Yes Subjective Patient examined in ICU- She was transferred to ICU because of septic shock with hypotension despite of 4 L of fluid resuscitation and maintenance dose over the night ,She is feeling well and reported improvement in her symptoms. and her current blood pressures are running 130-120/75 mm hg and ICU team planning her to transfer to PCU . Objective Vital Signs Date Time Temp Pulse Resp B/P (MAP) Pulse Ox O2 Delivery O2 Flow Rate FiO2 03/15/25 15:00 91 18 134/77 (96) 98 Room Air 03/15/25 03:00 98.4 03/13/25 12:39 0 Result Diagram: 03/15/25 0655 03/15/25654 General- patient is alert , awake HEENT: Atraumatic, normocephalic, EOMI, anicteric sclera ; pink conjunctiva Neck: Trachea midline. Supple, full range of motion, no JVD Cardiac: Regular rhythm, regular rate with 2/6 systolic murmur at left lower sternal border, aortic area Respiratory: Equal breath sounds bilaterally, no tachypnea, no wheezing ,rub or rales, Chest: No accessory muscle use, tender left lateral ribcage in the anterior axillary line proximally T6-T7 Gastrointestinal: Abdomen symmetric, non-distended, soft, non-tender, normal bowel sounds x4 quadrant, normoactive, no hepatosplenomegaly Musculoskeletal: swelling on dorsum of the right hand with the erythema and warm to touch and a region that has a proximally 6 x 6 cm, Swelling on dorsum of the right foot with no warmth or erythema Neurological: Mental status exam: alert and consciousness, orientation, memory, speech - Cranial nerve test: Cranial nerves 2-12 intact - Motor system: Nutrition, Tone 3+, Power 5/5, no involuntary movements - Sensory system: Intact - Reflex testing: Biceps, triceps and knee reflexes 2+ - Cerebellar: Normal Skin: Warm and dry Coagulation Studies Laboratory Tests Test 03/13/25 04:42 D-Dimer 2.39 MG/L FEU (0-0.50) H D-Dimer Comment Advance Care Planning Advanced Care plannin - 30 Minutes Assessment Assessment 54-year-old female with PMH of Hypothyroidism, Seizure presented to the ED in view of right upper extremity swollen pain tenderness. Patient is admitted for the evaluation management of right hand cellulitis. CT chest was reviewed which showed mass that was invading the chest wall, patient has a remote methamphetamine abuse, (possible IV drug abuse). Patient endorses tenderness of the sternoclavicular joint in the left side wheezing suspicion for possible sternoclavicular joint infection history of IV drug abuse Patient's blood cultures turned out to be positive for MRSA. Plan Plan Right hand cellulitis possible Right hand septic arthritis vs Tenosynovitis 2/2 , MRSA related septic shock, resolving Patient presented to ED with the severe 10/10 intensity pain and swelling on the dorsum of the right hand BP-113/68, pulse -68, RR-16, temperature-98, SpO2-98 on room air WBC-21.3, H&H-12.1/35.9, neutrophils-94.3 % ESR-57 D-dimer-2.39 Na-127, K-2.5, HC03-30.1, BUN 16, creatinine-0.69, GFR 89 Lactic acid 1.6, CRP-34.56, procalcitonin-0.74 Blood culture-preliminary negative Chest x-ray-Focal opacity within the left apex measuring approximately 5.0 cm consistent with focal consolidation versus mass. Vascular ultrasound right upper extremity- No venous thrombus identified in the RIGHT upper extremity vessels evaluated above.Contralateral subclavian vein is patent. Plan: Patient was given 1 dose of ceftriaxone 2 g IV,Zosyn 3.375 IV, vancomycin pharmacy to dose IV and NS IV 2000 mL bolus given in ED Started Zosyn 4.5 g/100 mL IV q.8h started on Vancomycin pharmacy to dose CTA chest is failed to provide results today because of IV infiltration, tomorrow they are going to do again so follow up with CTA chest urinalysis, urine tox Started IV NS 150 mL/hour Follow up with CBC/CMP 03/14/2025 Patient still complain pain the right hand even with slight touch Today patient had severe low blood pressure- 69/35 mmHg, pulse rate 72, SpO2 93 on room air Albumin-1.3 Blood culture - Gram-positive cocci and follow-up with sensitivity WBC-18.1, H and H- 11.9/35.2 Urine tox positive for cannabinoids and opiates ID doctor examined the patient and discontinue Zosyn and switch to Rocephin 1 g IV daily Plan Given 2 1000 mL IV NS bolus Continue IV NS 125 mL per hour Ordered PICC line Follow-up with echocardiogram Started Rocephin 1 g IV daily (day 06/25) Continue vancomycin pharmacy to dose IV (day 07/27) Consider adding bicarb in D5 NS if blood pressure is low 03/15/25: yesterday Patient had drop in blood pressure despite fluid resuscitation,hence patient was transferred to ICU Started on albumin and levophed now blood pressure is maintained - 125/75(MAP- 91) Plan: Continue monitoring blood pressure Chest Pain 2/2 below Primary Pulmonary Malignancy with possible chest wall extension/Metastasis). Possible injury to chest wall tenderness vs pulmonary embolism Patient presents with left-sided chest discomfort which is gradually 6/10 in intensity, sharp in nature, increased with a deep breath BP-113/68, pulse -68, RR-16, temperature-98, SpO2-98 on room air WBC-21.3, H&H-12.1/35.9, neutrophils-94.3 % ESR-57 D-dimer-2.39 Na-127, K-2.5, HC03-30.1, BUN 16, creatinine-0.69, GFR 89 Lactic acid 1.6, CRP-34.56, procalcitonin-0.74 Blood culture-preliminary negative Chest x-ray-Focal opacity within the left apex measuring approximately 5.0 cm consistent with focal consolidation versus mass.. Follow up with the echocardiogram Hypovolemic Hypotonic Hyponatremia 2/2 Dehydration Na-127,Na-127, K-2.5, HC03-30.1, BUN 16, creatinine-0.69, GFR 89 Lactic acid 1.6, CRP-34.56, procalcitonin-0.74 plan: Follow up with Urine and Serum Na,Cr,Osmolality 03/14/25 Na-126, k-3.7, bicarb-17.9 Urine osmolality-280, urine creatinine-31, urine sodium-less than 15, urine potassium-T7, serum osmolality-255 Plan Continue IV NS 125 mL/hour Hypothyroidism Patient has a history of hypothyroidism for which she takes levothyroxine 75 mcg and patient is compliant with the medication TSH-0.77 Plan Continue home med levothyroxine 75 mcg Epilepsy Patient has a history of seizures for which he take lamotrigine 100 mg p.o. b.i.d. Plan-continue home med lamotrigine 100 mg p.o. b.i.d. Continue Cenobamate 50mg PO BID Peripheral neuropathy Patient has a history of peripheral neuropathy for which she takes duloxetine 30 mg p.o. daily and gabapentin 300 mg capsules p.o. b.i.d. Plan-continue home med History of opioid use disorder: Continue buprenorphine/naloxone Discontinued Opiods in view of hypotension. 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 Possible Left sternoclavicular joint infection History of possible IV drug abuse Management per ID CT chest: Left upper lobe peripheral mass with suspected invasion of the chest wall. The diagnosis of exclusion is a primary pulmonary malignancy Consider interval CT chest to look for progression of the mass/?abscess Most likely secondary to bloodstream infection Continue antibiotics as per above Might require at least six weeks of antibiotics Endocarditis, rule out Echo: Mobile interatrial septum. Normal MV annulus with thickened leaflets without stenosis. Consider LACI Tinea capitis/cruris Terbinafine p.o. has been used as outpatient for two months per the patient Terbinafine cream topical Code Status: Full DVT Prophylaxis: Heparin subQ Analgesia/ Sedation: Morphine Line/tubes: Peripheral PT: Ordered Prognosis: Guarding Carlo Ledezma MD Internal Medicine Resident, PGY-1 PGY 2 resident addendum Critical care time 35 minutes. I have seen and evaluated the patient independently. I have reviewed the history, physical examination, laboratory and imaging findings and the assessment and plan documented by the PGY1 resident. Systolic Blood pressures are maintaining over 120 without pressor support. Plan per ICU team and we will resume the care once downgraded to PCU. We will continue vancomycin and ceftriaxone. Blood cultures are positive for MRSA with a possible source of right hand cellulitis/IV drug abuse Per ID we may need to follow up with the repeat blood cultures and no PICC line until blood cultures are sterile. Toan Hurtado IM resident, PGY 2 Date of Service: Mar 15, 2025 Billing Provider: NATHAN GOLDSTEIN MD Common Visit Codes: [id number]-[id number] CARE 30-74 MIN CARLO LEDEZMA RES Mar 15, 2025 15:35 TOAN HURTADO RES Mar 15, 2025 17:35 NATHAN GOLDSTEIN MD Apr 05, 2025 08:43
[2025-03-15] MEDS ORDERED: VALA100031 PO (16:55)
[2025-03-15] MEDS ORDERED: HYDR12.55 PO (16:55)
[2025-03-15] MEDS ORDERED: TERB250T89 PO (16:55)
[2025-03-15] MEDS ORDERED: MUPI22OI30 TOP (16:55)
[2025-03-15] MEDS ORDERED: ONDA-243 PO (16:55)
[2025-03-15] MEDS ORDERED: CYAN10007 SQ (16:55)
[2025-03-15] MEDS: vancomycin inj. 750 MG in normal saline 250ml IV soln 250 ML IV SCH (23:02)
--- NOTE | 2025-03-16 03:50 | PROCEDURE NOTE- Residance ---
Procedure Note Providers to CC ~ Description INDICATION: Severe infiltration and swelling of bilateral upper extremities; urgent requirement for continuation of IV albumin and fluids for maintenance of blood pressures PROCEDURE WEB CONTENT & SOCIAL MEDIA MANAGER: Dr Bonilla and Dr Vallejo ATTENDING PHYSICIAN: Dr Luna = Attendance Y CONSENT: Taken During the informed consent discussion regarding the procedure, or treatment, I explained the following to the patient/designee: a. Nature of the procedure or treatment and who will perform the procedure or treatment. b. Necessity for procedure and the possible benefits. c. Risks and complications (most common and serious). d. Alternative treatments and the risks, benefits and side effects of each (including no treatment). e. Likelihood of the patient achieving his/her goals without this procedure and surgery treatment. f. Problems that might occur during the recuperation. PROCEDURE SUMMARY: The CDC Central Line Insertion was started with the first handwash prior to starting sterile technique. A time out was performed. My hands were washed immediately prior to the procedure. I wore a surgical cap, mask with protective eyewear, full gown and sterile gloves throughout the procedure. The patient was placed in Trendelenburg position. LEFT chest region was prepped using chlorhexidine scrub and draped in sterile fashion using a full drape and sterile probe cover and sterile gel employed. The medial and lateral heads of the sternocleidomastoid muscle were identified as was the carotid pulse. The Internal Jugular vein was identified using the ultrasound. Anesthesia was achieved over the vein using 1% lidocaine. Using real-time out of plane guidance, the introducer needle was inserted into the Internal Jugular vein under direct ultrasound visualization. Venous blood was withdrawn. The syringe was removed and a guidewire was advanced into the introducer needle. The guidewire was visualized in the Internal Jugular Vein by ultrasound. A small incision was made at the skin surface with a scalpel and the introducer needle was exchanged for a dilator over the guidewire. After appropriate dilation was obtained, the dilator was exchanged over the wire for a central venous catheter. The wire was removed and the catheter was sutured in place. A sterile sorbaview shield was placed over the catheter at the insertion site. The patient tolerated the procedure without any hemodynamic compromise. At time of procedure completion, all ports aspirated and flushed properly. Post-procedure chest x-ray is pending at this time. Estimated blood loss is minimal. Dr Joe Vallejo Internal Medicine Resident PGY-2 Date of Service: Mar 16, 2025 Billing Provider: HELLEN LUNA MD,JOE, RES Mar 16, 2025 03:50
--- NOTE | 2025-03-16 05:07 | RADIOLOGY REPORT ---
CHEST RADIOGRAPH Indication: central line Technique: Single frontal view of the chest was obtained COMPARISON: CT CTA CHEST PE W/ IV CONTRAST on DOS: 03/13/25, DI CHEST,SINGLE VIEW on DOS: 03/13/25 FINDINGS: Lines and Tubes: Right central venous catheter in satisfactory position. Lungs: Left upper lobe airspace disease. Pleura: Trace left pleural effusion No pneumothorax. Cardiomediastinal contours: Unremarkable Bones: Unremarkable IMPRESSION: Right central venous catheter in satisfactory position.
[2025-03-16 06:00] VITALS: BP 94/49; PULSE 77; RESP 14; TEMP 98; O2SAT 94
[2025-03-16 06:58] LABS: MEAN PLATELET VOLUME 7.3 FL (7.4-10.4); RED CELL DISTRIBUTION WIDTH 14.3 % (11.5-14.5)
[2025-03-16 07:11] LABS: CREATININE 0.67 MG/DL (0.40-0.90); TOTAL CARBON DIOXIDE 21.3 MMOL/L (24-32); eCRCL 86 ML/MIN; eGFR > 90 ML/MIN
[2025-03-16 08:00] VITALS: RESP 16; O2SAT 97
[2025-03-16 11:00] VITALS: BP 123/55; PULSE 92; RESP 19; TEMP 97.9; O2SAT 97
--- NOTE | 2025-03-16 14:04 | RADIOLOGY REPORT ---
Exam: US US SOFT TISSUE MASS, ANGIO LINE PLACEMENT(PICC NURSE) Date: 03/16/2025 01:23 PM Clinical History: upper extremity Comparison: None Technique: Targeted sonographic evaluation of the soft tissues of the right hand was obtained utilizing grayscale and color Doppler imaging. Findings: There is no evidence for drainable collection. There is no evidence for solid or cystic mass in the site. No vascular abnormalities identified at this site. IMPRESSION: No definite sonographic abnormality is identified in the soft tissues of the right hand
--- NOTE | 2025-03-16 14:46 | CONSULTATION REPORT ---
History of Present Illness Providers to CC ~ Reason for Admit\Admit Dx: Right upper extremity swelling pain and erythema Refering MD: Dr Arroyo History of Present Illness The patient was a 54-year-old woman who was admitted several days ago with a multiple symptoms including chest pain and foot pain but also has issues with the right hand The patient also states that she had some swelling initially two weeks ago when her symptoms started to that right hand. She states that over the last 48 hours she developed worsening pain redness and swelling to that right hand she states her pain is moderate to severe. She denies any fevers or chills she states she has a known heart murmur. She denies any penetrating injury, , trauma or IV drug use in the hand , The patient denies any recent sexually transmitted diseases. Allergies: Coded Allergies: tramadol HCl (Verified Allergy, Mild, LOWERS SIEZURE THRESHOLD, 03/13/25) codeine (Verified Allergy, Unknown, 03/13/25) prochlorperazine edisylate (Verified Allergy, Unknown, 03/13/25) prochlorperazine maleate (Verified Allergy, Unknown, 03/13/25) Home Medications Home Medications Active Reported Hydrochlorothiazide 12.5 Mg Tablet 1 Tab PO QAM Terbinafine Hcl 250 Mg Tablet 1 Tab PO DAILY Bactroban* (Mupirocin) 22 Gm Tube 1 Applic TOP TID Valacyclovir (Valacyclovir HCl) 1,000 Mg Tablet 1 Tab PO DAILY Cyanocobalamin Injection (Cyanocobalamin (Vitamin B-12)) 1,000 Mcg/Ml Vial 1 Mg SQ Q30D Ondansetron Odt (Ondansetron HCl) 4 Mg Tab.rapdis 1 Tab PO Q6H PRN PRN 4 Days Buprenorphine-Nalox 8-2Mg Film (Buprenorphine HCl/Naloxone HCl) 8 Mg-2 Mg Film 1 Film SL TID Xcopri (Cenobamate) 50 Mg Tablet 50 Mg PO BID LaMICtal tablet (Lamotrigine) 100 Mg Tablet 1 Tab PO BID Levothyroxine Sodium 75 Mcg Tablet 1 Tab PO QAM Duloxetine HCl 30 Mg Capsule. 3 Cap PO DAILY 30 Days Neurontin (Gabapentin) 300 Mg Capsule 300 Mg PO BID Prilosec* (Omeprazole) 20 Mg Capsule. 40 Mg PO DAILY Vitamin D3 (Cholecalciferol) 1,000 Unit Capsule 1,000 Unit PO DAILY Calcium Gummies (Calcium Phosphate Trib/Vit D3) 1 Each Tab.chew 1 Each PO DAILY Hair, Skin & Nails (Multivitamins W-Minerals) 1 Each Tablet 1 Each PO DAILY Physical Exam Last Vital Signs Recorded: Temperature: 98.3, Source: Oral, Heart Rate: 89, Respiratory Rate: 16, BP: 89/56, Pulse Oximetry: 97, Weight: 56.800 General Appearance: alert, no apparent distress Extremities Significant swelling in the dorsum of the right hand and fingers. It does not appear to be extend proximal to the wrist. He has good capillary refill and no evidence of compartment syndrome. The fingers are moving though because of the swelling it is somewhat difficult. The can move the wrist without irritability to a certain extent. The forearm elbow and a proximal arm are nontender. There are no lymph nodes at the elbow palpable. Distal neuro exam is intact Results Results/Orders Results/Orders CT scan of the hand did not show any fluid collection Diagram Lab Result Diagram: 03/16/2514 03/16/2514 Assessment/Plan Problems/Diagnosis: (1) Cellulitis Additional Plan Antibiotics, warm compresses and elevation are indicated. I also advised the patient to try and move the fingers as much as possible to prevent finger joint stiffness. This should resolve with time and antibiotics. I will follow with you. Problem Qualifiers (1) Cellulitis: Qualified Codes: L03.113 - Cellulitis of right upper limb ASHLIE LORA Jr., MD Mar 16, 2025 14:46
--- NOTE | 2025-03-16 17:34 | PROGRESS NOTE- Residence ---
Progress Note - Resident Providers to CC Resident Creating Document: АЛЕКСАНДР MCCONNELL RES CC: JEN BRASHER DO ~ Antibiotic Timeout Antibiotic Ordered?: Yes Subjective Patient is seen and examined at bedside. Patient is downgraded to the floor in view of maintain blood pressure is off the pressors. Patient feels more miserable, tired and in extreme pain today. Patient complains of pain in the lower back that has radiating down to the leg prompting us to do an MRI as below. We will follow up with ultrasound of the right upper extremity and MRI of the CTL spine in suspicion for potential MRSA metastasis to various bone locations. Objective Vital Signs Date Time Temp Pulse Resp B/P (MAP) Pulse Ox O2 Delivery O2 Flow Rate FiO2 03/16/25 11:00 97.9 92 19 123/55 (77) 97 Room Air 03/13/25 12:39 0 Result Diagram: 03/16/2561303/16/2514 General: Thin built middle-aged woman, Alert, awake, oriented, in acute distress HEENT: PERRLA, no icterus, pallor, lymphadenopathy, carotid bruit Respiratory system: Bilateral vesicular breath sounds heard, no adventitious breath sounds, tenderness of the left sternoclavicular joint (with no improvement) CVS: S1-S2 heard, grade 3/6 HSM in the mitral area radiating to the tricuspid area GI: Soft, nontender, no organomegaly, no guarding/rigidity, bowel sounds present Neuro: No focal neurological deficits present Extremities: Swelling erythema, tenderness, warm to touch present in the dorsal surface of the right hand Skin: Warm and dry, patchy circular bald spot present on the scalp on the left frontal region, patchy white discoloration of the skin present all over the body. Coagulation Studies Laboratory Tests Test 03/13/25 04:42 D-Dimer 2.39 MG/L FEU (0-0.50) H D-Dimer Comment Assessment Assessment 54-year-old female with PMH of Hypothyroidism, Seizure presented to the ED in view of right upper extremity swollen pain tenderness. Patient is admitted for the evaluation management of right hand cellulitis. CT chest was reviewed which showed mass that was invading the chest wall, patient has a remote methamphetamine abuse (possible IV drug abuse). Patient endorses tenderness of the sternoclavicular joint in the left side, suspicion for possible sternoclavicular joint infection. 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 Blood cultures positive for MRSA on 03/13 Leukocytosis, downtrending Possible source right hand cellulitis/IV drug abuse Preliminary repeat blood cultures negative Follow up with MRI CTL spine with contrast No PICC line until blood cultures are sterile Continue antibiotics as per above Left sternoclavicular joint infection Septic arthritis with possible abscess formation History of possible IV drug abuse Consider interval CT chest to look for progression of the mass/?abscess Most likely secondary to bloodstream infection Continue antibiotics as per above Might require at least six weeks of antibiotics Might consider I&D if the patient does not improve or has progression to abscess in the interval CT Endocarditis, rule out Echo: Mobile interatrial septum. Normal MV annulus with thickened leaflets without stenosis. Moderate MR. Consider LACI Septic shock, RESOLVED Most likely secondary to sternoclavicular joint infection, bacteremia and cellulitis Tinea capitis/cruris Terbinafine p.o. has been used as outpatient for two months per the patient Terbinafine cream topical Disposition: Continue antibiotics as per above, follow up with MRI CTA spine with contrast, ultrasound of the left upper extremity Александр Mcconnell MD Internal Medicine, PGY 2 Date of Service: Mar 16, 2025 Billing Provider: JEN BRASHER DO Addendum Patient was seen and examined. Agree with the above assessment and plan by Dr. Mcconnell. Patient was quite toxic appearing today. I would be surprised if she has cleared yet. She appears to have significant metastatic disease crossing tissue planes in the chest- would consult CV Surgery for debridement. She has a new complaint of pain staring in her back and radiating down her leg so MRIs of the spine ordered АЛЕКСАНДР MCCONNELL, RES Mar 16, 2025 17:34 JEN BRASHER DO Mar 16, 2025 23:19
[2025-03-16 18:00] VITALS: BP 105/62; PULSE 70; RESP 20; TEMP 97.4; O2SAT 97
[2025-03-16 20:00] VITALS: RESP 14; O2SAT 95
--- NOTE | 2025-03-16 21:11 | PROGRESS NOTE- Residence ---
Progress Note - Resident Providers to CC Resident Creating Document: WILFRED LEDEZMA RES ~ Antibiotic Timeout Antibiotic Ordered?: Yes Subjective Patient is seen and examined at bedside. Patient is downgraded to the floor in view of maintain blood pressure is off the pressors. Patient still complains of pain in right hand, Chest and back Objective Vital Signs Date Time Temp Pulse Resp B/P (MAP) Pulse Ox O2 Delivery O2 Flow Rate FiO2 03/16/25 18:30 89 03/16/25 11:00 97.9 19 123/55 (77) 97 Room Air 03/13/25 12:39 0 Result Diagram: 03/16/2561303/16/25613 General- patient is alert , awake HEENT: Atraumatic, normocephalic, EOMI, anicteric sclera ; pink conjunctiva Neck: Trachea midline. Supple, full range of motion, no JVD Cardiac: Regular rhythm, regular rate with 2/6 systolic murmur at left lower sternal border Respiratory: Equal breath sounds bilaterally, no tachypnea, no wheezing ,rub or rales, Chest: No accessory muscle use, tender left lateral ribcage in the anterior axillary line proximally T6-T7 Gastrointestinal: Abdomen symmetric, non-distended, soft, non-tender, normal bowel sounds x4 quadrant, normoactive, no hepatosplenomegaly Musculoskeletal: swelling on dorsum of the right hand with the erythema and warm to touch and a region that has a proximally 6 x 6 cm, Swelling on dorsum of the right foot with no warmth or erythema Neurological: Mental status exam: alert and consciousness, orientation, memory, speech - Cranial nerve test: Cranial nerves 2-12 intact - Motor system: Nutrition, Tone 3+, Power 5/5, no involuntary movements - Sensory system: Intact - Reflex testing: Biceps, triceps and knee reflexes 2+ - Cerebellar: Normal Skin: Warm and dry Coagulation Studies Laboratory Tests Test 03/13/25 04:42 D-Dimer 2.39 MG/L FEU (0-0.50) H D-Dimer Comment Advance Care Planning Advanced Care plannin - 30 Minutes Assessment Assessment 54-year-old female with PMH of Hypothyroidism, Seizure presented to the ED in view of right upper extremity swollen pain tenderness. Patient is admitted for the evaluation management of right hand cellulitis. CT chest was reviewed which showed mass that was invading the chest wall, patient has a remote methamphetamine abuse (possible IV drug abuse). Patient endorses tenderness of the sternoclavicular joint in the left side, suspicion for possible sternoclavicular joint infection. Plan Plan Right hand cellulitis possible Right hand septic arthritis vs Tenosynovitis 2/2 , MRSA related septic shock, resolving Patient presented to ED with the severe 10/10 intensity pain and swelling on the dorsum of the right hand BP-113/68, pulse -68, RR-16, temperature-98, SpO2-98 on room air WBC-21.3, H&H-12.1/35.9, neutrophils-94.3 % ESR-57 D-dimer-2.39 Na-127, K-2.5, HC03-30.1, BUN 16, creatinine-0.69, GFR 89 Lactic acid 1.6, CRP-34.56, procalcitonin-0.74 Blood culture-preliminary negative Chest x-ray-Focal opacity within the left apex measuring approximately 5.0 cm consistent with focal consolidation versus mass. Vascular ultrasound right upper extremity- No venous thrombus identified in the RIGHT upper extremity vessels evaluated above.Contralateral subclavian vein is patent. Plan: Patient was given 1 dose of ceftriaxone 2 g IV,Zosyn 3.375 IV, vancomycin pharmacy to dose IV and NS IV 2000 mL bolus given in ED Started Zosyn 4.5 g/100 mL IV q.8h started on Vancomycin pharmacy to dose CTA chest is failed to provide results today because of IV infiltration, tomorrow they are going to do again so follow up with CTA chest urinalysis, urine tox Started IV NS 150 mL/hour Follow up with CBC/CMP 03/14/2025 Patient still complain pain the right hand even with slight touch Today patient had severe low blood pressure- 69/35 mmHg, pulse rate 72, SpO2 93 on room air Albumin-1.3 Blood culture - Gram-positive cocci and follow-up with sensitivity WBC-18.1, H and H- 11.9/35.2 Urine tox positive for cannabinoids and opiates ID doctor examined the patient and discontinue Zosyn and switch to Rocephin 1 g IV daily Plan Given 2 1000 mL IV NS bolus Continue IV NS 125 mL per hour Ordered PICC line Follow-up with echocardiogram Started Rocephin 1 g IV daily (day 1/) Continue vancomycin pharmacy to dose IV (day 07/27) Consider adding bicarb in D5 NS if blood pressure is low 03/15/25: yesterday Patient had drop in blood pressure despite fluid resuscitation,hence patient was transferred to ICU Started on albumin and levophed now blood pressure is maintained - 125/75(MAP- 91) Plan: Continue monitoring blood pressure 03/16/2025 Patient is downgraded from ICU to PCU because she is maintaining normal blood pressure and she is off from levofibs now Vitals are stable wbc-15, h/h-8.4/25.2 Na-136, K-3.9 CTA chest - Left upper lobe peripheral mass with suspected invasion of the chest wall. Plan: Continue monitoring vitals We consulted Dr peguero he recommonded Antibiotics, warm compresses and elevation are indicated. Continue monitoring CBC/CMP Follow up with MRI [place] spine Continue vancomycin Day 4 Continue ringers lactate 75ml/hr Chest Pain 2/2 Primary Pulmonary Malignancy with possible chest wall extension/Metastasis). vs Left sternoclavicular joint infection,Septic arthritis with possible abscess formation History of possible IV drug abuse Possible injury to chest wall tenderness vs pulmonary embolism Patient presents with left-sided chest discomfort which is gradually 6/10 in intensity, sharp in nature, increased with a deep breath BP-113/68, pulse -68, RR-16, temperature-98, SpO2-98 on room air WBC-21.3, H&H-12.1/35.9, neutrophils-94.3 % ESR-57 D-dimer-2.39 Na-127, K-2.5, HC03-30.1, BUN 16, creatinine-0.69, GFR 89 Lactic acid 1.6, CRP-34.56, procalcitonin-0.74 Blood culture-preliminary negative Chest x-ray-Focal opacity within the left apex measuring approximately 5.0 cm consistent with focal consolidation versus mass. Echo :l LVEF is 60%.PA systolic pressure of 46 mm Left atrium is mildly dilated.Mobile interatrial septum - no flow detected. Trileaflet AV appears mildly sclerotic without stenosis or insufficiency. Normal MV annulus with thickened leaflets without stenosis. Moderate regurgitation (best apically/subcostally). TV appears structurally normal with moderate regurgitation. Normal PV without stenosis, physiologic insufficiency. (best subcostally) Normal pericardium. No effusion. CTA Chest /thorax : Left upper lobe peripheral mass with suspected invasion of the chest wall. 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 Blood cultures positive for MRSA on 03/13 Leukocytosis, downtrending Possible source right hand cellulitis/IV drug abuse Preliminary repeat blood cultures negative Follow up with MRI CTL spine with contrast No PICC line until blood cultures are sterile Continue antibiotics as per above Septic shock, RESOLVED Most likely secondary to sternoclavicular joint infection, bacteremia and cellulitis Hypothyroidism Patient has a history of hypothyroidism for which she takes levothyroxine 75 mcg and patient is compliant with the medication TSH-0.77 Plan Continue home med levothyroxine 75 mcg Epilepsy Patient has a history of seizures for which he take lamotrigine 100 mg p.o. b.i.d. Plan-continue home med lamotrigine 100 mg p.o. b.i.d. Continue Cenobamate 50mg PO BID Peripheral neuropathy Patient has a history of peripheral neuropathy for which she takes duloxetine 30 mg p.o. daily and gabapentin 300 mg capsules p.o. b.i.d. Plan-continue home med History of opioid use disorder: Continue buprenorphine/naloxone Discontinued Opiods in view of hypotension. Pulmonary artery hypertension Moderate mitral regurgitation Moderate TR Follow up with the windows systems architect. Possible Left sternoclavicular joint infection History of possible IV drug abuse Management per ID CT chest: Left upper lobe peripheral mass with suspected invasion of the chest wall. The diagnosis of exclusion is a primary pulmonary malignancy Consider interval CT chest to look for progression of the mass/?abscess Most likely secondary to bloodstream infection Continue antibiotics as per above Might require at least six weeks of antibiotics Endocarditis, rule out Echo: Mobile interatrial septum. Normal MV annulus with thickened leaflets without stenosis. Consider LACI Tinea capitis/cruris Terbinafine p.o. has been used as outpatient for two months per the patient Terbinafine cream topical Disposition: Patient will be monitored in PCU under telemetry and ID doctor is following the case and Dr phillips orthopedics dr involved in the care and we will monitor vitals and continue 6 weeks course of Vancomycin for MRSA Code Status: Full DVT Prophylaxis: Heparin subQ Analgesia/ Sedation: Morphine Line/tubes: Peripheral PT: Ordered Prognosis: Guarding Critical care time 35 minutes. Wilfred Ledezma MD Internal Medicine Resident, PGY-1 Date of Service: Mar 16, 2025 Billing Provider: NATHAN GOLDSTEIN MD Common Visit Codes: [id number] CARE 30-74 MIN WILFRED LEDEZMA, RES Mar 16, 2025 21:11 NATHAN GOLDSTEIN MD Apr 05, 2025 08:43
[2025-03-16 22:00] VITALS: BP 83/48; PULSE 81; RESP 18; TEMP 97.4; O2SAT 95
[2025-03-17] VITALS (8 sets, daily range): BP systolic 82–146; BP diastolic 52–86; PULSE 78–89; RESP 11–16; TEMP 97.4–98.7; O2SAT 77–97
[2025-03-17 04:43] LABS: MEAN PLATELET VOLUME 7.2 FL (7.4-10.4); RED CELL DISTRIBUTION WIDTH 14.7 % (11.5-14.5)
[2025-03-17 05:11] LABS: CREATININE 0.76 MG/DL (0.40-0.90); TOTAL CARBON DIOXIDE 19.1 MMOL/L (24-32); eCRCL 76 ML/MIN; eGFR 79 ML/MIN
[2025-03-17] MEDS ORDERED: sodium bicarbonate 1meq/ml inj 150 ML in dextrose 5%-water 1,000 ML IV SCH (08:05)
[2025-03-17] MEDS: VANCOMYCIN LEVEL IV ONE ×2 (08:30→20:30)
--- NOTE | 2025-03-17 12:36 | PROGRESS NOTE- Residence ---
Progress Note - Resident Providers to CC Resident Creating Document: TOAN HURTADO RES ~ Antibiotic Timeout Antibiotic Ordered?: Yes Subjective Patient is seen and examined at bedside. Patient continues to have the chest pain, localized over the left side and right hand pain and swelling. Despite of higher antibiotics patient is still complaining of the swelling and pain over the right upper hand and. Abscess/collection associated with pain over the subcutaneous tissue on the left side of chest Karlos near the left 2nd intercostal space. Patient is baseline blood pressure is at between 80-90. . Objective Vital Signs Date Time Temp Pulse Resp B/P (MAP) Pulse Ox O2 Delivery O2 Flow Rate FiO2 03/17/25 10:25 17 03/17/25 08:00 97 Room Air 03/17/25 06:30 86 03/17/25 02:00 97.5 107/58 (74) 03/13/25 12:39 0 Result Diagram: 03/17/25 0415 03/17/25 0415 General- patient is alert , awake HEENT: Atraumatic, normocephalic, EOMI, anicteric sclera ; pink conjunctiva Neck: Trachea midline. Supple, full range of motion, no JVD Cardiac: Regular rhythm, regular rate with 2/6 systolic murmur at left lower sternal border, aortic area Respiratory: Equal breath sounds bilaterally, no tachypnea, no wheezing ,rub or rales, Chest: No accessory muscle use, tender left lateral ribcage in the anterior axillary line proximally T6-T7. Swelling of size 5 x 4 cm over the left side of chest, near left 2nd intercostal space, left sternal clavicular area. Gastrointestinal: Abdomen symmetric, non-distended, soft, non-tender, normal bowel sounds x4 quadrant, normoactive, no hepatosplenomegaly Musculoskeletal: swelling on dorsum of the right hand with the erythema and warm to touch and a region that has a proximally 6 x 6 cm, Swelling on dorsum of the right foot with no warmth or erythema Neurological: Mental status exam: alert and consciousness, orientation, memory, speech - Cranial nerve test: Cranial nerves 2-12 intact - Motor system: Nutrition, Tone 3+, Power 5/5, no involuntary movements - Sensory system: Intact - Reflex testing: Biceps, triceps and knee reflexes 2+ - Cerebellar: Normal Skin: Warm and dry Coagulation Studies Laboratory Tests Test 03/13/25 04:42 D-Dimer 2.39 MG/L FEU (0-0.50) H D-Dimer Comment Advance Care Planning Advanced Care plannin - 30 Minutes Assessment Assessment 54-year-old female with PMH of Hypothyroidism, Seizure presented to the ED in view of right upper extremity swollen pain tenderness. Patient is admitted for the evaluation management of right hand cellulitis. CT chest was reviewed which showed mass that was invading the chest wall, patient has a remote methamphetamine abuse (possible IV drug abuse). Patient endorses tenderness of the sternoclavicular joint in the left side, suspicion for possible sternoclavicular joint infection. Plan Plan Right upper extremity swelling and left-sided chest swelling likely 2/2 below Possible pyomyositis with MRSA Received IV Zosyn early for two days (three doses) Continue IV vancomycin (day 5) Warm compresses, elevation and moving fingers recommended per Dr. Romero (orthopedic), appreciate recommendations Ultrasound of right upper extremity: Nonsignificant Intractable Chest Pain likely 2/2 Left sternoclavicular joint septic arthritis with abscess versus Primary Pulmonary Malignancy with possible chest wall extension/Metastasis) Possible injury to chest wall tenderness vs pulmonary embolism Patient presents with left-sided chest discomfort which is gradually 6/10 in intensity, sharp in nature, increased with a deep breath BP-113/68, pulse -68, RR-16, temperature-98, SpO2-98 on room air WBC-21.3, H&H-12.1/35.9, neutrophils-94.3 % ESR-57 D-dimer-2.39 Na-127, K-2.5, HC03-30.1, BUN 16, creatinine-0.69, GFR 89 Lactic acid 1.6, CRP-34.56, procalcitonin-0.74 Blood culture-preliminary negative Chest x-ray-Focal opacity within the left apex measuring approximately 5.0 cm consistent with focal consolidation versus mass. Echo :l LVEF is 60%.PA systolic pressure of 46 mm Left atrium is mildly dilated.Mobile interatrial septum - no flow detected. Trileaflet AV appears mildly sclerotic without stenosis or insufficiency. Normal MV annulus with thickened leaflets without stenosis. Moderate regurgitation (best apically/subcostally). TV appears structurally normal with moderate regurgitation. Normal PV without stenosis, physiologic insufficiency. (best subcostally) Normal pericardium. No effusion. CTA Chest /thorax : Left upper lobe peripheral mass with suspected invasion of the chest wall. The diagnosis of exclusion is a primary pulmonary malignancy Pain control with morphine Dr romero was consulted he recommended continuation of antibiotics ID doctor is following the case and recommonded Follow up with MRI CTL spine with contrast No PICC line until blood cultures are sterile May need to Continue Vancomycin for 6 weeks While patient in ICU, Dr. 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 b.i.d. Continue Cenobamate 50mg PO BID Peripheral neuropathy Continue duloxetine 30 mg p.o. daily and gabapentin 300 mg capsules p.o. b.i.d. History of opioid use disorder: Continue buprenorphine/naloxone Discontinued Opiods in view of hypotension. Pulmonary artery hypertension Moderate mitral regurgitation Moderate TR Follow up with the oyster tonger. Left sternoclavicular joint infection Septic arthritis with possible abscess formation possible IV drug abuse Management per ID CT chest: Left upper lobe peripheral mass with suspected invasion of the chest wall. The diagnosis of exclusion is a primary pulmonary malignancy Consider interval CT chest to look for progression of the mass/?abscess Most likely secondary to bloodstream infection Continue antibiotics as per above Might require at least six weeks of antibiotics Endocarditis, rule out Echo: Mobile interatrial septum. Normal MV annulus with thickened leaflets without stenosis. Consider LACI Tinea capitis/cruris Terbinafine p.o. has been used as outpatient for two months per the patient Terbinafine cream topical Disposition: Patient will be monitored in PCU under telemetry and ID doctor is following the case and Dr phillips orthopedics dr involved in the care and we will monitor vitals and continue 6 weeks course of Vancomycin for MRSA Code Status: Full DVT Prophylaxis: Heparin subQ Analgesia/ Sedation: Morphine Line/tubes: Peripheral PT: Ordered Prognosis: Guarding Disposition: Continue antibiotics per ID team. ID team consulted surgeon for possible I and D and awaiting recommendations Toan Hurtado m.d. Internal Medicine PGY 2 Date of Service: Mar 17, 2025 Billing Provider: SHAWNA HARO MD Common Visit Codes: [id number] INP/OBS CARE(HIGH) TOAN HURTADO, MARIOLA Mar 17, 2025 12:36 SHAWNA HARO MD Mar 17, 2025 18:39
--- NOTE | 2025-03-17 13:47 | PROGRESS NOTE- Residence ---
Progress Note - Resident Providers to CC Resident Creating Document: АЛЕКСАНДР SAUER, MARIOLA CC: HAILE MOSQUEDA MD ~ Antibiotic Timeout Antibiotic Ordered?: Yes Subjective Patient is seen and examined at bedside. Patient continues to complain of pain in the chest, has an outpouched swelling that is tender. Patient's right upper extremity swelling and erythema remains to be constant with no worsening. Last night, patient was complaining of extreme pain in the right upper extremity. Patient had multiple episodes of low blood pressure in the range of 80s to 90s requiring fluid resuscitation and improving with fluids. Objective Vital Signs Date Time Temp Pulse Resp B/P (MAP) Pulse Ox O2 Delivery O2 Flow Rate FiO2 03/17/25 10:25 17 03/17/25 08:00 97 Room Air 03/17/25 06:30 86 03/17/25 02:00 97.5 107/58 (74) 03/13/25 12:39 0 Result Diagram: 03/17/25 0415 03/17/25 0415 General: Thin built middle-aged woman, Alert, awake, oriented, in acute distress HEENT: PERRLA, no icterus, pallor, lymphadenopathy, carotid bruit Respiratory system: Bilateral vesicular breath sounds heard, no adventitious breath sounds, tenderness of the left sternoclavicular joint (with no improvement), outpouching oval-shaped swelling, soft in consistency and tender, no warmth present in the left infraclavicular region CVS: S1-S2 heard, grade 3/6 HSM in the mitral area radiating to the tricuspid area GI: Soft, nontender, no organomegaly, no guarding/rigidity, bowel sounds present Neuro: No focal neurological deficits present Extremities: Swelling erythema, tenderness, warm to touch present in the dorsal surface of the right hand (constant) Skin: Warm and dry, patchy circular bald spot present on the scalp on the left frontal region, patchy white discoloration of the skin present all over the body. Coagulation Studies Laboratory Tests Test 03/13/25 04:42 D-Dimer 2.39 MG/L FEU (0-0.50) H D-Dimer Comment Assessment Assessment 54-year-old female with PMH of Hypothyroidism, Seizure presented to the ED in view of right upper extremity swollen pain tenderness. Patient is admitted for the evaluation management of right hand cellulitis. CT chest was reviewed which showed mass that was invading the chest wall, patient has a remote methamphetamine abuse (possible IV drug abuse). Patient endorses tenderness of the sternoclavicular joint in the left side, suspicion for possible sternoclavicular joint infection. Patient has possible abscess collection at the left sternoclavicular joint requiring surgery consult Plan Plan Right hand cellulitis Tenosynovitis, less likely Sepsis, POA Continue IV vancomycin (day 5) Elevation and moving fingers recommended per Dr. 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 Blood cultures positive for MRSA on 03/13, 03/15 Leukocytosis, downtrending Possible source right hand cellulitis/IV drug abuse Follow up with MRI CTL spine with contrast No PICC line until blood cultures are sterile Continue antibiotics as per above Possible left sternoclavicular joint infection Septic arthritis with abscess formation History of possible IV drug abuse Repeat CT reviewed - gas now present at fluid collection Most likely secondary to bloodstream infection Continue antibiotics as per above Might require at least six weeks of antibiotics Surgery consult for possible I and D of abscess, awaiting recommendations Endocarditis, rule out Echo: Normal MV annulus with thickened leaflets without stenosis. Moderate MR. Currently Lamar criteria not met Consider LACI Septic shock, resolved Most likely secondary to sternoclavicular joint infection, bacteremia and cellulitis IV fluid resuscitation Tinea capitis/cruris Terbinafine p.o. has been used as outpatient for two months per the patient Terbinafine cream topical Disposition: Continue antibiotics as per above, follow up with MRI CTA spine with contrast, surgery consult Александр Sauer MD Internal Medicine, PGY 2 Agree with above note. Patient seen and examined with Dr. Dominguez. She has obvious swelling of the left chest area with associated tenderness. New CT scan was reviewed. Will reach out to Dr. Galvan for surgical opinion. Date of Service: Mar 17, 2025 Billing Provider: HAILE MOSQUEDA MD,АЛЕКСАНДР, RES Mar 17, 2025 13:47 HAILE MOSQUEDA MD Mar 17, 2025 17:47
--- NOTE | 2025-03-17 14:26 | RADIOLOGY REPORT ---
EXAM: CT CT CHEST INDICATION: LEFT STERNOCLAVICULAR INFECTION/ABSCESS TECHNIQUE: Noncontrast axial images of the chest have been obtained along with coronal and sagittal reformatted images. All CT scans at this facility use dose modulation, iterative reconstruction, and/or weight based dosing when appropriate to reduce radiation dose to as low as reasonably achievable. COMPARISON: CT CTA CHEST PE W/ IV CONTRAST on DOS: 03/13/25 FINDINGS: LOWER NECK: Unremarkable LYMPH NODES/MEDIASTINUM: Right lower paratracheal lymph node, 9 mm. CARDIOVASCULAR: Normal cardiac size. No pericardial effusion. No aneurysmal dilatation of the great vessels. No significant coronary artery calcifications. anemia. UPPER ABDOMEN: Postsurgical changes to the stomach/gastroesophageal junction benign-appearing fluid attenuating cysts of the left superior kidney. MUSCULOSKELETAL: No acute fracture or aggressive focal osseous lesion. Multilevel degenerative change of the visualized spine. CHEST WALL: Body wall edema. LUNG PARENCHYMA/PLEURAL SPACE: Medium-sized bilateral pleural effusions. Significant indeterminate mass/fluid collection along the left anterior chest wall extending through the left 2nd intercostal space and propagating into the left pleural space causing mass effect likely along the left anterior segment, left upper lobe. Presumed complex fluid collection measures 5.2 x 5.2 cm with interspersed gas. Alternatively, abscess may be located within the lung parenchyma with pleural extension and invasion into the left chest wall. Patchy areas of ground-glass in bilateral upper lobes. IMPRESSION: 1. Significant abnormal complex presumed fluid collection along the left anterior possible pleural space with the left chest wall invasion propagating into the left pectoralis minor muscle belly. 2. Interspersed gas. 3. Medium bilateral pleural effusions with patchy bilateral upper lobe ground- glass and differential includes pneumonia versus pulmonary edema. 4. Upon comparison with prior examination dated 03/13/25, overall size of the abscess is largely unchanged. Patchy bilateral upper lobe opacities are new since prior examination with increased pleural effusions. 5. Given location of the abscess versus necrotic mass, unlikely arising from the sternoclavicular joint. 6. Recommend appropriate sampling and drainage as deemed necessary. Malignancy with necrosis is not excluded.
--- NOTE | 2025-03-17 19:17 | ELECTROCARDIOGRAPH REPORT ---
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 SAVITA Johnson Measurements Intervals [place] Rate: 88 P: 72 NC: 170 QRS: 54 QRSD: 86 T: 44 QT: 324 QTc: 392 Interpretive Statements Sinus rhythm Low voltage, extremity and precordial leads Electronically Signed On 03-18-2025 19:12:[address] SAVITA Johnson Please click the below link to view image of tracing.
[2025-03-17] MEDS ORDERED: vancomycin/NS 500MG ADD-VANT 100 ML IV SCH (21:00)
[2025-03-18] VITALS (10 sets, daily range): BP systolic 92–145; BP diastolic 45–74; PULSE 78–90; RESP 12–17; TEMP 97.2–98.6; O2SAT 95–99
[2025-03-18 03:55] LABS: CREATININE 0.64 MG/DL (0.40-0.90); TOTAL CARBON DIOXIDE 19.3 MMOL/L (24-32); eCRCL 90 ML/MIN; eGFR > 90 ML/MIN
[2025-03-18] MEDS: ringers solution, lacted 1,000 ML IV ONE (04:36)
[2025-03-18 04:55] LABS: MEAN PLATELET VOLUME 7.0 FL (7.4-10.4); RED CELL DISTRIBUTION WIDTH 14.8 % (11.5-14.5)
--- NOTE | 2025-03-18 09:47 | PROGRESS NOTE ---
Progress Note Dictate Providers to CC ~ Subjective Subjective: She seemed a little bit confused this morning. She is otherwise stable. She still has left-sided chest pain. Objective Objective: Middle-aged female currently sitting up in bed in no acute distress Right IJ central venous catheter in place Left anterior chest with area of fluctuance and tenderness just inferior to clavicle Lungs clear to auscultation bilaterally Heart regular rate and rhythm Abdomen is soft and nontender Right upper extremity still with some swelling but decreased erythema Lab Results: 03/18/25 0430 03/18/25 0200 Lab comments: 03/15 blood cultures negative Radiology comments: Repeat CT chest reviewed. Complex collection at left anterior chest that appears to involve the left lung/pleural space with extension across chest wall to musculature with scattered foci of gas. Problem\Assessment\Plan Additional Plan 1. MRSA sepsis - appears to be clearing fairly quickly 2. Right upper extremity cellulitis - slowly improving 3. Left chest wall infection - not entirely clear how this originated, ?Septic left SC joint (location is close but does not totally line up), ?Pulmonary septic embolism Continue vancomycin Follow up repeat blood cultures Dr. Galvan asked to consult for possible debridement/drainage of left chest wall MRI spine pending HAILE MOSQUEDA MD Mar 18, 2025 09:47
[2025-03-18] MEDS: potassium Cl 20 mEq SR tablet PO STA (10:17)
--- NOTE | 2025-03-18 11:49 | PROGRESS NOTE ---
Progress Note ID Providers to CC ~ Progress Note Progress Note: pt seen and examined-ct reviewed-findings consistent with empyema necessitans- options for treatment include percutaneous drainage vs resection of belkis abscess with chest wall debridement-will discuss with ELIZABETH Gillespie MD Mar 18, 2025 11:49
--- NOTE | 2025-03-18 12:43 | PROGRESS NOTE- Residence ---
Progress Note - Resident Providers to CC Resident Creating Document: TOAN HURTADO RES ~ Antibiotic Timeout Antibiotic Ordered?: Yes Subjective Patient is seen and examined at bedside. Patient was apparently normal and sleeping while we are entering the room and she is crying in pain after seeing us and it seems to be exaggerated pain, hypersensitive to the touch and still complaining of the pain over the right hand and left side of the chest. Objective Vital Signs Date Time Temp Pulse Resp B/P (MAP) Pulse Ox O2 Delivery O2 Flow Rate FiO2 03/18/25 11:25 98.3 87 17 112/45 (67) 97 Room Air Result Diagram: 03/18/25 0430 03/18/25 0200 General- patient is alert , awake HEENT: Atraumatic, normocephalic, EOMI, anicteric sclera ; pink conjunctiva Neck: Trachea midline. Supple, full range of motion, no JVD Cardiac: Regular rhythm, regular rate with 2/6 systolic murmur at left lower sternal border, aortic area Respiratory: Equal breath sounds bilaterally, no tachypnea, no wheezing ,rub or rales, Chest: No accessory muscle use, tender left lateral ribcage in the anterior axillary line proximally T6-T7. Swelling of size 5 x 4 cm over the left side of chest, near left 2nd intercostal space, left sternal clavicular area which is little bit better than from yesterday. Gastrointestinal: Abdomen symmetric, non-distended, soft, non-tender, normal bowel sounds x4 quadrant, normoactive, no hepatosplenomegaly Musculoskeletal: swelling on dorsum of the right hand with the erythema and warm to touch and a region that has a proximally 6 x 6 cm, Swelling on dorsum of the right foot with no warmth or erythema Neurological: Mental status exam: alert and consciousness, orientation, memory, speech - Cranial nerve test: Cranial nerves 2-12 intact - Motor system: Nutrition, Tone 3+, Power 5/5, no involuntary movements - Sensory system: Intact - Reflex testing: Biceps, triceps and knee reflexes 2+ - Cerebellar: Normal Skin: Warm and dry Coagulation Studies Laboratory Tests Test 03/13/25 04:42 D-Dimer 2.39 MG/L FEU (0-0.50) H D-Dimer Comment Advance Care Planning Advanced Care plannin - 30 Minutes Assessment Assessment 54-year-old female with PMH of Hypothyroidism, Seizure presented to the ED in view of right upper extremity swollen pain tenderness. Patient is admitted for the evaluation management of right hand cellulitis. CT chest was reviewed which showed mass that was invading the chest wall, patient has a remote methamphetamine abuse (possible IV drug abuse). Patient endorses tenderness of the sternoclavicular joint in the left side, suspicion for possible sternoclavicular joint infection. Plan Plan 54-year-old female with PMH of Hypothyroidism, Seizure presented to the ED in view of right upper extremity swollen pain tenderness. Patient is admitted for the evaluation management of right hand cellulitis. CT chest was reviewed which showed mass that was invading the chest wall, patient has a remote methamphetamine abuse (possible IV drug abuse). Patient endorses tenderness of the sternoclavicular joint in the left side, suspicion for improvement in his Lloyd's with a possible left sternoclavicular joint infection. 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 Galvan Continue vancomycin Intractable Chest Pain likely 2/2 Empyema necessitans Possible Primary Pulmonary Malignancy with possible chest wall extension/Metastasis Possible septic pulmonary embolism Dr peguero was consulted he recommended continuation of antibiotics ID doctor is following the case and recommonded Follow up with MRI CTL spine with contrast No PICC line until blood cultures are sterile May need to Continue Vancomycin for 6 weeks While patient in ICU, Dr. Loredo thinks that the swelling could be secondary to the infection and patient may need outpatient follow up after 6-8 weeks for lung malignancy workup Continue vancomycin Follow up repeat blood cultures MRI spine pending Per Dr. Galvan- findings consistent with empyema necessitans-options for treatment include percutaneous drainage vs resection of belkis abscess with chest wall debridement. Hypothyroidism Patient has a history of hypothyroidism for which she takes levothyroxine 75 mcg and patient is compliant with the medication TSH-0.77 Plan Continue home med levothyroxine 75 mcg Epilepsy continue home med lamotrigine 100 mg p.o. b.i.d. Continue Cenobamate 50mg PO BID Peripheral neuropathy Continue duloxetine 30 mg p.o. daily and gabapentin 300 mg capsules p.o. b.i.d. History of opioid use disorder: Continue buprenorphine/naloxone Discontinued Opiods in view of hypotension. Pulmonary artery hypertension Moderate mitral regurgitation Moderate TR Follow up with the alliance director. Left sternoclavicular joint infection Septic arthritis with possible abscess formation possible IV drug abuse Management per ID CT chest: Left upper lobe peripheral mass with suspected invasion of the chest wall. The diagnosis of exclusion is a primary pulmonary malignancy CT chest showed possible empyema necessitans Most likely secondary to bloodstream infection Continue antibiotics as per above Might require at least six weeks of antibiotics Endocarditis, rule out Echo: Mobile interatrial septum. Normal MV annulus with thickened leaflets without stenosis. Consider LACI Tinea capitis/cruris Terbinafine p.o. has been used as outpatient for two months per the patient Terbinafine cream topical Code Status: Full DVT Prophylaxis: Heparin subQ Analgesia/ Sedation: Morphine Line/tubes: Peripheral PT: Ordered Prognosis: Guarding Disposition: Dr. Galvan is on board and patient may probably get surgical drainage. Toan Hurtado MD Internal Medicine PGY 2 Date of Service: Mar 18, 2025 Billing Provider: SHAWNA HARO MD Common Visit Codes: [id number] INP/OBS CARE(HIGH) TOAN HURTADO, RES Mar 18, 2025 12:42 SHAWNA HARO MD Mar 19, 2025 15:45
--- NOTE | 2025-03-18 16:12 | RADIOLOGY REPORT ---
EXAM: MR MRI C SPINE INDICATION: mrsa spread, need the entire spine CTL without contrast TECHNIQUE: Multiplanar, multisequence imaging of the cervical spine without contrast. COMPARISON: MR MRI LUMBAR SPINE on DOS: 03/18/25 FINDINGS: [ANATOMY]: Straightening of the normal cervical lordosis, which may be seen in the setting of patient positioning versus muscular spasm. [BONES]: No abnormal signal to suggest discitis osteomyelitis [CERVICAL CORD]: The cervical cord is normal in signal and morphology. [DISCS]: Diffuse disc desiccation. [FACETS]: Unremarkable [OTHER]: Significant suspected prevertebral edema without associated enhancement in the imaging finding may be reactive edema given lack of enhancement. The visualized paraspinal soft tissues are normal. Bilateral pleural effusions. IMPRESSION: 1. No evidence of discitis osteomyelitis. 2. Prevertebral edema without associated enhancement. 3. Findings may be reactive edema. 4. Bilateral pleural effusions.
[2025-03-18] MEDS: NUT.TX.GLUC.INTOLER,LAC-FR,SOY (GLUCERNA) 237 ML PO SCH (18:03)
[2025-03-19] VITALS (11 sets, daily range): BP systolic 90–133; BP diastolic 50–92; PULSE 79–100; RESP 12–20; TEMP 97.6–99.1; O2SAT 95–100
[2025-03-19 05:03] LABS: MEAN PLATELET VOLUME 7.0 FL (7.4-10.4); RED CELL DISTRIBUTION WIDTH 15.3 % (11.5-14.5)
[2025-03-19 05:20] LABS: CREATININE 0.99 MG/DL (0.40-0.90); TOTAL CARBON DIOXIDE 21.4 MMOL/L (24-32); eCRCL 58 ML/MIN; eGFR 58 ML/MIN
[2025-03-19] MEDS: VANCOMYCIN LEVEL IV ONE (08:30)
[2025-03-19] MEDS: vancomycin inj 500 MG in normal saline 100ml IV soln 100 ML IV SCH (10:49)
--- NOTE | 2025-03-19 13:13 | RADIOLOGY REPORT ---
EXAM: CT CT HEAD INDICATION: Head trauma TECHNIQUE: CT images of the head were obtained without administration of IV contrast. CT scans at this facility use dose modulation, iterative reconstruction, and/or weight based dosing when appropriate to reduce radiation dose to as low as reasonably achievable. COMPARISON: None FINDINGS: PARENCHYMA: No acute hemorrhage. There is no mass effect, midline shift, or herniation. There is preservation of the dennis white differentiation. VENTRICLES: No hydrocephalus. EXTRA-AXIAL SPACES: No extra-axial fluid collections. OTHER: The bony structures are intact. Visualized portions of the paranasal sinuses and mastoid air cells are clear. Small amount of soft tissue swelling over the left forehead. IMPRESSION: No CT evidence of an acute intracranial abnormality. Small amount of soft tissue swelling over the left forehead.
--- NOTE | 2025-03-19 16:53 | PROGRESS NOTE- Residence ---
Progress Note - Resident Providers to CC Resident Creating Document: MARY HYMAN RES ~ Antibiotic Timeout Antibiotic Ordered?: Yes Subjective Patient was seen and examined at the bedside. Patient complains of pain and had a fall. Fall precautions initiated and CT head was negative for any hemorrhage. Awaiting transfer to a different center per Dr. Galvan for percutaneous drainage of the abscess. If transfer does not happened then Dr. Galvan will perform the procedure on Thursday. NPO after midnight. Objective Vital Signs Date Time Temp Pulse Resp B/P (MAP) Pulse Ox O2 Delivery O2 Flow Rate FiO2 03/19/25 08:00 13 96 Room Air 03/19/25 06:00 97.6 86 94/50 (65) Result Diagram: 03/19/2544903/19/25449 General- patient is alert , awake HEENT: Atraumatic, normocephalic, EOMI, anicteric sclera ; pink conjunctiva Neck: Trachea midline. Supple, full range of motion, no JVD Cardiac: Regular rhythm, regular rate with 2/6 systolic murmur at left lower sternal border, aortic area Respiratory: Equal breath sounds bilaterally, no tachypnea, no wheezing ,rub or rales, Chest: No accessory muscle use, tender left lateral ribcage in the anterior axillary line proximally T6-T7. Swelling of size 5 x 4 cm over the left side of chest, near left 2nd intercostal space, left sternal clavicular area which is little bit better than from yesterday. Gastrointestinal: Abdomen symmetric, non-distended, soft, non-tender, normal bowel sounds x4 quadrant, normoactive, no hepatosplenomegaly Musculoskeletal: swelling on dorsum of the right hand with the erythema and warm to touch and a region that has a proximally 6 x 6 cm, Swelling on dorsum of the right foot with no warmth or erythema Neurological: Mental status exam: alert and consciousness, orientation, memory, speech - Cranial nerve test: Cranial nerves 2-12 intact - Motor system: Nutrition, Tone 3+, Power 5/5, no involuntary movements - Sensory system: Intact - Reflex testing: Biceps, triceps and knee reflexes 2+ - Cerebellar: Normal Skin: Warm and dry Coagulation Studies Laboratory Tests Test 03/13/25 04:42 D-Dimer 2.39 MG/L FEU (0-0.50) H D-Dimer Comment Assessment Assessment 54-year-old female with PMH of Hypothyroidism, Seizure presented to the ED in view of right upper extremity swollen pain tenderness. Patient is admitted for the evaluation management of right hand cellulitis. CT chest was reviewed which showed mass that was invading the chest wall, patient has a remote methamphetamine abuse (possible IV drug abuse). Patient endorses tenderness of the sternoclavicular joint in the left side, suspicion for possible sternoclavicular joint infection. Plan Plan 54-year-old female with PMH of Hypothyroidism, Seizure presented to the ED in view of right upper extremity swollen pain tenderness. Patient is admitted for the evaluation management of right hand cellulitis. CT chest was reviewed which showed mass that was invading the chest wall, patient has a remote methamphetamine abuse (possible IV drug abuse). Patient endorses tenderness of the sternoclavicular joint in the left side, suspicion for improvement in his Lloyd's with a possible left sternoclavicular joint infection. 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 Galvan Continue vancomycin Intractable Chest Pain likely 2/2 Empyema necessitans Possible Primary Pulmonary Malignancy with possible chest wall extension/Metastasis Possible septic pulmonary embolism Dr peguero was consulted he recommended continuation of antibiotics ID doctor is following the case and recommonded Follow up with MRI CTL spine with contrast No PICC line until blood cultures are sterile May need to Continue Vancomycin for 6 weeks While patient in ICU, Dr. Loredo thinks that the swelling could be secondary to the infection and patient may need outpatient follow up after 6-8 weeks for lung malignancy workup Continue vancomycin Follow up repeat blood cultures MRI spine pending Per Dr. Galvan- findings consistent with empyema necessitans-options for treatment include percutaneous drainage vs resection of belkis abscess with chest wall debridement. Hypothyroidism Patient has a history of hypothyroidism for which she takes levothyroxine 75 mcg and patient is compliant with the medication TSH-0.77 Plan Continue home med levothyroxine 75 mcg Epilepsy continue home med lamotrigine 100 mg p.o. b.i.d. Continue Cenobamate 50mg PO BID Peripheral neuropathy Continue duloxetine 30 mg p.o. daily and gabapentin 300 mg capsules p.o. b.i.d. History of opioid use disorder: Continue buprenorphine/naloxone Discontinued Opiods in view of hypotension. 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 Left sternoclavicular joint infection Septic arthritis with possible abscess formation possible IV drug abuse Management per ID CT chest: Left upper lobe peripheral mass with suspected invasion of the chest wall. The diagnosis of exclusion is a primary pulmonary malignancy CT chest showed possible empyema necessitans Most likely secondary to bloodstream infection Continue antibiotics as per above Might require at least six weeks of antibiotics Endocarditis, rule out Echo: Mobile interatrial septum. Normal MV annulus with thickened leaflets without stenosis. Consider LACI Tinea capitis/cruris Terbinafine p.o. has been used as outpatient for two months per the patient Terbinafine cream topical Code Status: Full DVT Prophylaxis: Heparin subQ Analgesia/ Sedation: Morphine Line/tubes: Peripheral PT: Ordered Prognosis: Guarding Disposition: Dr. Galvan is on board and patient may probably get surgical drainage. Awaiting transfer to a different center per Dr. Galvan for percutaneous drainage of the abscess. If transfer does not happened then Dr. Galvan will perform the procedure on Thursday. NPO after midnight Mary Walters MD Internal Medicine PGY 2 Date of Service: Mar 19, 2025 Billing Provider: SHAWNA HARO MD Common Visit Codes: [id number] INP/OBS CARE(HIGH) MARY HYMAN, RES Mar 19, 2025 16:53 SHAWNA HARO MD Mar 20, 2025 17:34
--- NOTE | 2025-03-19 17:00 | RADIOLOGY REPORT ---
EXAM: DI CHEST,SINGLE VIEW HISTORY: check central line placement TECHNIQUE: 1 view of the chest COMPARISON: CT CT CHEST on DOS: 03/17/25 FINDINGS/IMPRESSION: LUNGS: Central pulmonary vascular congestion. Possible alveolar and interstitial edema with large area of oval-shaped opacification of the left upper lung measuring 5.8 cm. MEDIASTINUM: Normal cardiac size BONES: No acute osseous abnormality OTHER: Right internal jugular central venous catheter is coiled and distal tip extends up towards its insertion point. Recommend repositioning.
--- NOTE | 2025-03-19 19:07 | PROCEDURE NOTE- Residance ---
Procedure Note Providers to CC CC: TAJ FORBES MD ~ Planned Procedure Central line placement Indications Antibiotics, IV infiltrated Type of Anesthesia Local anesthesia Informed Consent During the informed consent discussion regarding the procedure, or treatment, I explained the following to the patient/designee: a. Nature of the procedure or treatment and who will perform the procedure or treatment. b. Necessity for procedure and the possible benefits. c. Risks and complications (most common and serious). d. Alternative treatments and the risks, benefits and side effects of each (including no treatment). e. Likelihood of the patient achieving his/her goals without this procedure and surgery treatment. f. Problems that might occur during the recuperation. g. Conflicts of interest, if any Description I started with the first handwash prior to starting sterile technique. A time out was performed. My hands were washed immediately prior to the procedure. I wore a surgical cap, mask with protective eyewear, full gown and sterile gloves throughout the procedure. The patient was placed in Trendelenburg position. Left chest region was prepped using chlorhexidine scrub and draped in sterile fashion using a full drape and sterile probe cover and sterile gel employed. The medial and lateral heads of the sternocleidomastoid muscle were identified as was the carotid pulse. The Internal Jugular vein was identified using the ultrasound. Anesthesia was achieved over the vein using 1% lidocaine. Using real-time out of plane guidance, the introducer needle was inserted into the Internal Jugular vein under direct ultrasound visualization. Venous blood was withdrawn. The syringe was removed and a guidewire was advanced into the introducer needle. The guidewire was visualized in the Internal Jugular Vein by ultrasound. A small incision was made at the skin surface with a scalpel and the introducer needle was exchanged for a dilator over the guidewire. After appropriate dilation was obtained, the dilator was exchanged over the wire for a central venous catheter. The wire was removed and the catheter was sutured in place at appropriate position. A sterile sorbaview shield was placed over the catheter at the insertion site. The patient tolerated the procedure without any hemodynamic compromise. At time of procedure completion, all ports aspirated and flushed properly. Post-procedure chest x-ray is pending at this time. Estimated Blood Loss Minimal 5 mL Complication None X-Ray Findings Reviewed and in satisfactory position Date of Service: Mar 19, 2025 Billing Provider: TAJ FORBES MD, DEEPIKA BANDI, RES Mar 19, 2025 19:07
--- NOTE | 2025-03-19 19:37 | RADIOLOGY REPORT ---
CHEST RADIOGRAPH Indication: central line placement position Technique: Single frontal view of the chest was obtained COMPARISON: DI CHEST,SINGLE VIEW on DOS: 03/19/25, CT CT CHEST on DOS: 03/17/25, DI CHEST,SINGLE VIEW on DOS: 03/16/25, CT CTA CHEST PE W/ IV CONTRAST on DOS: 03/13/25, DI CHEST,SINGLE VIEW on DOS: 03/13/25 FINDINGS: Left IJ line terminating at the junction of the left brachiocephalic vein and SVC. Stable oval shaped opacity within the left upper lung. Lungs otherwise clear cardiac silhouette and carlos are within normal limits. Bones and soft tissues demonstrate no significant abnormality. IMPRESSION: Left IJ line terminates at the junction of the left brachiocephalic vein and upper SVC.
[2025-03-19] MEDS: ketorolac trometh 15mg/ml vial 15 MG/ML ML IV PRN (20:05)
--- NOTE | 2025-03-19 21:27 | PROGRESS NOTE ---
Progress Note ID Providers to CC ~ Progress Note Progress Note: no complaints/vss/chest wall unchanged/labs noted a/p 1. empyema necessitans-wbc is increasing/will proceed with robotic belkis wedge resection and drainage of chest wall abscess in am-discussed procedure including risks/benefits/alternatives ELIZABETH DRAKE MD Mar 19, 2025 21:27
[2025-03-20] VITALS (10 sets, daily range): BP systolic 88–128; BP diastolic 52–72; PULSE 64–97; RESP 6–18; TEMP 97.2–98.7; O2SAT 96–100
--- NOTE | 2025-03-20 01:57 | RADIOLOGY REPORT ---
PROCEDURE: MR MRI LUMBAR SPINE INDICATION: mrsa spread, need the entire spine CTL withOUT CONTRAST Exam Date: 03/18/2025 02:09 PM COMPARISON: MR MRI C SPINE on DOS: 03/18/25 TECHNIQUE: MRI lumbar spine without intravenous contrast. FINDINGS: The lumbar alignment is intact. The vertebral body heights and marrow signal are within normal limits. The visualized distal spinal cord and conus medullaris are within normal limits. The conus medullaris appears to terminate within normal limits. The visualized retroperitoneal and paraspinal soft tissues are unremarkable. The following axial levels are detailed below: T12-L1: Unremarkable. L1-L2: Unremarkable. L2-L3: Unremarkable. L3-L4: Unremarkable. L4-L5: Unremarkable. L5-S1: Unremarkable. IMPRESSION: No significant posterior disc disease, central canal or neural foraminal narrowing.
[2025-03-20 04:02] LABS: MEAN PLATELET VOLUME 7.3 FL (7.4-10.4); RED CELL DISTRIBUTION WIDTH 15.0 % (11.5-14.5)
[2025-03-20 04:19] LABS: CREATININE 0.96 MG/DL (0.40-0.90); TOTAL CARBON DIOXIDE 20.1 MMOL/L (24-32); eCRCL 60 ML/MIN; eGFR 61 ML/MIN
--- NOTE | 2025-03-20 05:39 | CONSULTATION ---
DATE OF CONSULTATION: 03/19/2025 DICTATING PHYSICIAN: Joon Galvan MD REASON FOR CONSULTATION: Evaluation of complex left upper lobe mass with extension to the chest wall. HISTORY OF PRESENT ILLNESS: The patient is a 54-year-old female who was admitted via the ER with complaints of right hand swelling as well as left-sided chest discomfort and dyspnea. Found to have a white count of 21,000. Doppler of the right upper arm revealed no evidence of DVT. CTA of the chest performed on 03/14 confirmed the presence of a left upper lobe mass abutting the chest wall. Nature of the mass is unclear. The patient was maintained on IV antibiotics. Blood cultures revealed staph. Dr. Romero was ultimately consulted regarding the arm symptoms as well as the right hand. No surgical intervention was recommended. The patient's findings consistent with cellulitis. Follow up CT of the chest was performed on 03/17. Scan revealed persistent left upper lobe mass with extension into the chest wall and an abscess involving the chest wall. Surgical evaluation is subsequently requested. On further question, She complains of persistent chest wall pain. Does have a history of meth use. No drainage from the chest. The patient does smoke, also uses alcohol, and uses methamphetamine. PAST MEDICAL HISTORY: Seizures, hypothyroidism, chronic pain, anxiety, Raynaud's. PAST SURGICAL HISTORY: Gastric bypass, abdominoplasty, breast reduction, hysterectomy. HOME MEDICATIONS: Include Lamictal, levothyroxine, , duloxetine, Neurontin, Suboxone, Prilosec, vitamin supplements. ALLERGIES: Include TRAMADOL, CODEINE, COMPAZINE. SOCIAL HISTORY: History of tobacco, alcohol and drug use. REVIEW OF SYSTEMS: See H and P. PHYSICAL EXAMINATION: GENERAL: This is a well-nourished female who answers questions appropriately. VITAL SIGNS: Unremarkable. HEART: Regular rate and rhythm. LUNGS: Clear to auscultation. Chest wall has some fluctuance in the upper left side. ABDOMEN: Benign. EXTREMITIES: Right upper extremity swelling noted. LABORATORY DATA: Labs include WBC 11, hematocrit 22, platelet count is 295. Chemistries: BUN and creatinine 14 and 0.6, CO2 is 19. Lactic acid 0.4. IMAGING STUDIES: Cardiac echo reveals a normal LV function, trileaflet aortic valve, moderate MR, moderate TR, normal pulmonary valve, normal right RV function, estimated PA pressure is 46. CT of the chest from 03/17 confirms left upper lobe abscess with extension into the left chest wall with an abscess involving the chest wall. Scattered infiltrates are present. Cultures from blood on 03/13, stap with organism 1 MRSA. 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 2. Cellulitis right upper extremity. 3. History of seizures. 4. Hypothyroidism. 5. History of neuropathy. 6. Anxiety. 7. Raynaud's. RECOMMENDATIONS: 1. Continue IV antibiotics. 2. The patient will be best served by transfer to an outside facility with IR for drain placement in the chest wall as well as left upper lobe abscess. The patient cannot be transferred for intervention. Should undergo resection of the left upper lobe abscess and debridement of the chest wall surgically. Joon Galvan MD TID: [id number] RECEIPT: [id number] /[facility]
[2025-03-20 09:32] LABS: PRE OP INR 1.2 INR; PRE OP PROTIME 12.0 SECONDS (9.0-12.0)
[2025-03-20 09:47] LABS: PRE OP PARTIAL THROMB. TIME 40.0 SECONDS (22-32)
[2025-03-20] MEDS: vancomycin inj 500 MG in normal saline 100ml IV soln 100 ML IV SCH (15:08)
--- NOTE | 2025-03-20 15:47 | PROGRESS NOTE- Residence ---
Progress Note - Resident Providers to CC Resident Creating Document: MARY HYMAN RES ~ Antibiotic Timeout Antibiotic Ordered?: Yes Subjective Patient was seen and examined at the bedside. Patient is sleeping comfortably in the bed. Patient is to be taken to the OR today in the evening for robotic left upper lobe wedge resection and drainage of the chest wall abscess by Dr. Galvan. Objective Vital Signs Date Time Temp Pulse Resp B/P (MAP) Pulse Ox O2 Delivery O2 Flow Rate FiO2 03/20/25 10:12 79 16 96 03/20/25 02:00 97.2 92/56 (68) Room Air 03/19/25 20:00 0.0 Result Diagram: 03/20/25 0343 03/20/25 0343 General- patient is alert , awake, central line on the left side of the neck HEENT: Atraumatic, normocephalic, EOMI, anicteric sclera ; pink conjunctiva Neck: Trachea midline. Supple, full range of motion, no JVD Cardiac: Regular rhythm, regular rate with 2/6 systolic murmur at left lower sternal border, aortic area Respiratory: Equal breath sounds bilaterally, no tachypnea, no wheezing ,rub or rales, Chest: No accessory muscle use, tender left lateral ribcage in the anterior axillary line proximally T6-T7. Swelling of size 5 x 4 cm over the left side of chest, near left 2nd intercostal space, left sternal clavicular area which is little bit better than from yesterday. Gastrointestinal: Abdomen symmetric, non-distended, soft, non-tender, normal bowel sounds x4 quadrant, normoactive, no hepatosplenomegaly Musculoskeletal: swelling on dorsum of the right hand with the erythema and warm to touch and a region that has a proximally 6 x 6 cm, Swelling on dorsum of the right foot with no warmth or erythema Neurological: Mental status exam: alert and consciousness, orientation, memory, speech - Cranial nerve test: Cranial nerves 2-12 intact - Motor system: Nutrition, Tone 3+, Power 5/5, no involuntary movements - Sensory system: Intact - Reflex testing: Biceps, triceps and knee reflexes 2+ - Cerebellar: Normal Skin: Warm and dry Coagulation Studies Laboratory Tests Test 03/13/25 04:42 03/20/25 08:40 D-Dimer 2.39 MG/L FEU (0-0.50) H D-Dimer Comment Prothrombin Time 12.0 SECONDS (9.0-12.0) INR International Normalized Ratio 1.2 INR Activated Partial Thromboplast Time 40 SECONDS (22-32) *H Assessment Assessment 54-year-old female with PMH of Hypothyroidism, Seizure presented to the ED in view of right upper extremity swollen pain tenderness. Patient is admitted for the evaluation management of right hand cellulitis. CT chest was reviewed which showed mass that was invading the chest wall, patient has a remote methamphetamine abuse (possible IV drug abuse). Patient endorses tenderness of the sternoclavicular joint in the left side, suspicion for possible sternoclavicular joint infection. Plan Plan 54-year-old female with PMH of Hypothyroidism, Seizure presented to the ED in view of right upper extremity swollen pain tenderness. Patient is admitted for the evaluation management of right hand cellulitis. CT chest was reviewed which showed mass that was invading the chest wall, patient has a remote methamphetamine abuse (possible IV drug abuse). Right upper extremity cellulitis Left upper lobe abscess versus mass with necrosis and extension into chest wall Can not rule out malignancy MRSA septicemia Empyema necessitans Plan per ID and Dr. Galvan. Plan to transfer the patient for [facility] for IR guided drainage of abscess was canceled. Patient is currently undergoing left upper lobe robotic wedge resection and drainage of chest wall abscess Continue vancomycin Dr peguero was consulted he recommended continuation of antibiotics ID doctor is following the case and recommonded Follow up with MRI CTL spine with contrast No PICC line until blood cultures are sterile May need to Continue Vancomycin for 6 weeks While patient in ICU, Dr. Loredo thinks that the swelling could be secondary to the infection and patient may need outpatient follow up after 6-8 weeks for lung malignancy workup Continue vancomycin Follow up repeat blood cultures MRI spine did not show any osteomyelitis but shows subcutaneous edema Per Dr. Galvan- findings consistent with empyema necessitans-options for treatment include percutaneous drainage vs resection of belkis abscess with chest wall debridement. Hypothyroidism Patient has a history of hypothyroidism for which she takes levothyroxine 75 mcg and patient is compliant with the medication TSH-0.77 Plan Continue home med levothyroxine 75 mcg Epilepsy continue home med lamotrigine 100 mg p.o. b.i.d. Continue Cenobamate 50mg PO BID Peripheral neuropathy Continue duloxetine 30 mg p.o. daily and gabapentin 300 mg capsules p.o. b.i.d. History of opioid use disorder: Continue buprenorphine/naloxone Discontinued Opiods in view of hypotension. 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 Left sternoclavicular joint infection, ruled out Septic arthritis with possible abscess formation , ruled out possible IV drug abuse Possible endocarditis Endocarditis, ruled out with the echo Echo: Mobile interatrial septum. Normal MV annulus with thickened leaflets without stenosis. Consider LACI Tinea capitis/cruris Terbinafine p.o. has been used as outpatient for two months per the patient Terbinafine cream topical Code Status: Full DVT Prophylaxis: Heparin subQ Analgesia/ Sedation: Morphine Line/tubes: Central line in left IJV PT: Ordered Prognosis: Guarding Disposition: Dr. Galvan is on board further management as per Dr. Jasso. Mary Walters MD Internal Medicine PGY 2 Date of Service: Mar 20, 2025 Billing Provider: SHAWNA HARO MD, DEEPIKA BANDI, RES Mar 20, 2025 15:47 SHAWNA HARO MD Mar 20, 2025 17:35
[2025-03-20] MEDS: dextrose 50%-water 50ml dispensing syringe IV ONE (15:54)
--- NOTE | 2025-03-20 16:38 | PROGRESS NOTE ---
Progress Note ID Providers to CC ~ Progress Note Progress Note: discussed procedure including risks/benefits/alternatives ELIZABETH DRAKE MD Mar 20, 2025 16:38
[2025-03-20] MEDS ORDERED: BUPIVAcaine 2.5mg/ml inj 50ml vial (contains preservative) ONE (17:07)
[2025-03-20] MEDS ORDERED: INDOCYANINE GREEN 25 MG/10 ML VIAL IV ONE (17:07)
[2025-03-20] MEDS ORDERED: BUPIVACAINE liposomal/PF 13.3 MG/ML 10mL vial IM ONE (17:08)
[2025-03-20] MEDS ORDERED: fentaNYL/PF 50MCG/1 ML 2ML syringe IV PRN ×2 (17:10)
[2025-03-20] MEDS ORDERED: ondansetron/PF 4mg/2ml inj IV PRN ×2 (17:10→20:45)
[2025-03-20] MEDS ORDERED: HYDROmorphone/PF 0.2 MG/ML SYRINGE IV PRN ×2 (17:10)
[2025-03-20] MEDS ORDERED: morphine 4 MG/ML inj SYRINge IV PRN ×2 (17:10→20:45)
[2025-03-20] MEDS ORDERED: labetalol 20mg/4ml (5mg/ml) syringe IV PRN (17:10)
[2025-03-20] MEDS ORDERED: enalaprilat 1.25mg/ml 2ml vial IV PRN (17:10)
[2025-03-20] MEDS ORDERED: MIDAZolam 1 MG/ML 5ML VIAL ONE (17:41)
[2025-03-20] MEDS ORDERED: fentaNYL /PF 50mcg/ml 5ml ampule ONE (17:41)
[2025-03-20] MEDS ORDERED: rocuronium 10mg/ml inj IV ONE ×2 (17:41→20:22)
[2025-03-20] MEDS ORDERED: LIDOcaine 2% (20mg/ml) 5ml vial ONE (17:42)
[2025-03-20] MEDS ORDERED: propofol inj 20 ML IV ONE (17:42)
--- NOTE | 2025-03-20 17:44 | PROGRESS NOTE ---
Progress Note ID Providers to CC ~ Progress Note Progress Note: Antibiotic Days Vanco 7 Lines [facility] 03/13 Blood- MSSA 03/15 Blood- ngtd Subjective: Patient was seen this AM prior to planned surgery on her chest wall. She was happy to hear that her blood stream had cleared Objective Vitals: Afebrile, 68, 16, 124/68, 98% on RA General: Alert, NAD CV: Regular RESP: CTA B; pain reproducible to palpation ABD: Soft, nontender EXT: no peripheral stigmata of IE LINES: occlusively dressed Laboratory Tests 03/20/25 03:43 03/18 MRI L spine No significant posterior disc disease, central canal or neural foraminal narrowing. 03/18 MRI C Spine 1. No evidence of discitis osteomyelitis. 2. Prevertebral edema without associated enhancement. 3. Findings may be reactive edema. 4. Bilateral pleural effusions. Assessment // MRSA septicemia, source is likely lungs. No vegetation on 2D echo. Cleared 03/15, fairly easily // Right upper extremity cellulitis - some residual swelling but overall improved // Left chest wall infection - may be a lung abscess crossing tissue planes // Leukocytosis, persistent // Substance abuse // Homelessness // No known antibiotic allergies Plan -Continue vancomycin until 04/26 -Appreciate plans for chest wall debridement, follow up today's op report -Monitor WBC count, swelling, Cr -Dispo planning: SNF -Will continue to follow JEN BRASHER DO Mar 20, 2025 17:44
[2025-03-20] MEDS ORDERED: morphine 10mg/ml inj. ONE (20:22)
--- NOTE | 2025-03-20 20:37 | OPERATIVE REPORT ---
Operative Report Providers to CC ~ Date of Procedure: Mar 20, 2025 Pre-Operative Diagnosis: ADONIS ABSCESS WITH EXTENSION THRU CHEST WALL Post-Operative Diagnosis SAME as PRE-Op Procedure Performed ROBO ADONIS WEDGE/CHEST WALL DEBRIDEMENT/CHEST TUBE PLACEMENT Surgeon: NOELLE EDWARDS Anesthesiologist: Mark Haile Type of Anesthesia: General Findings: ADONIS ABSCESS WITH EXTENSION INTO LEFT ANTERIOR CHEST WALL Estimated Blood Loss: 300 ML Specimen Removed: ADONIS WEDGE/CHEST WALL ABSCESS ELIZABETH DRAKE MD Mar 20, 2025 20:37
[2025-03-20] MEDS ORDERED: metoclopramide 5 mg/ml inj IV PRN (20:45)
[2025-03-20 21:32] LABS: MEAN PLATELET VOLUME 7.3 FL (7.4-10.4); RED CELL DISTRIBUTION WIDTH 15.5 % (11.5-14.5)
[2025-03-20 21:36] LABS: INR 1.2 INR
[2025-03-20 21:38] LABS: ABG BASE EXCESS -12.5 mmol/L (-2.0-3.0); ABG HCO3 14.5 mmol/L (21.0-28.0); ABG OXYGEN SATURATION 99.0 % (94.0-98.0); ABG PCO2 (T) 37.0 mmHg (32.0-45.0); ABG PH (T) 7.211 (7.350-7.450); ABG PO2 (T) 172.0 mmHg (83.0-108.0); FCOHb 0.7 % (0.5-1.5); FHHb 1.0 % (0.0-5.0); FIO2 60.0 mmHg/%; FMetHb 0.3 % (0.0-1.5); FO2Hb 98.0 % (94.0-98.0); MODE AC/simv; PATIENT TEMPERATURE 36.8; RESPIRATORY RATE 14 b/min; TIDAL VOLUME 450 mL; TOTAL HEMOGLOBIN 11.3 G/dl (12.0-16.0)
[2025-03-20 21:49] LABS: CREATININE 0.77 MG/DL (0.40-0.90); PHOSPHORUS 5.2 MG/DL (2.3-4.5); TOTAL CARBON DIOXIDE 20.1 MMOL/L (24-32); eCRCL 75 ML/MIN; eGFR 78 ML/MIN
[2025-03-20] MEDS: propofol 1000mg/100ml bottle 100 ML IV SCH (21:49)
[2025-03-20] MEDS: FENTANYL-0.9 % NACL/PF 100 ML IV SCH (21:50)
--- NOTE | 2025-03-20 22:24 | RADIOLOGY REPORT ---
EXAM: DI CHEST,SINGLE VIEW TECHNIQUE: Single frontal chest radiograph CLINICAL HISTORY: POST OP COMPARISON: DI CHEST,SINGLE VIEW on DOS: 03/19/25, DI CHEST,SINGLE VIEW on DOS: 03/19/25, CT CT CHEST on DOS: 03/17/25, DI CHEST,SINGLE VIEW on DOS: 03/16/25, CT CTA CHEST PE W/ IV CONTRAST on DOS: 03/13/25 FINDINGS/IMPRESSION: Interval placement of endotracheal tube with tip projecting approximately 18 mm above the vik. Redemonstrated left central venous catheter. Left-sided chest tubes are noted. Opacity is seen within the periphery of the left mid lung. Atelectasis versus scarring within the right midlung. Unchanged cardiomediastinal silhouette. No pleural effusion or pneumothorax. Unchanged osseous structures.
[2025-03-20] MEDS: VANCOMYCIN LEVEL IV ONE (22:29)
[2025-03-20] MEDS: sodium bicarbonate (8.4%) inj. 150 MEQ in dextrose 5%-water 1,000 ML IV SCH (22:34)
--- NOTE | 2025-03-20 23:25 | OPERATIVE REPORT ---
DATE OF SURGERY: 03/20/2025 DICTATING PHYSICIAN: Joon Galvan MD PREOPERATIVE DIAGNOSIS: Left upper lobe lung abscess with extension into the chest wall consistent with emphysema necessitans. POSTOPERATIVE DIAGNOSIS: Left upper lobe lung abscess with extension into the chest wall consistent with emphysema necessitans. PROCEDURES PERFORMED: * Robotic wedge resection of upper lobe abscess. * Resection of chest wall abscess. * Debridement of chest wall. * Chest tube replacement. SURGEON: Joon Galvan MD OPERATIONS ASSOCIATE: Yinka. ANESTHESIA: General. DRAINS: Chest tube x 2. INDICATIONS FOR OPERATION: The patient is a 54-year-old female with a history of sepsis who was found to have a left upper lobe abscess. A CT scan confirmed the presence of extension from the left upper lobe into the chest wall consistent with emphysema necessitans. The patient was taken to surgery because of inability to obtain transfer to an outside facility for drain placement. INTRAOPERATIVE FINDINGS: The patient had an abscess involving the left upper lobe, which was firmly adherent to the chest wall. There was actually erosion through the rib into the chest wall musculature. DESCRIPTION OF PROCEDURE: The patient was placed supine on the operating table after induction of general anesthesia and placement of endotracheal tube. The patient was placed in the right lateral decubitus position. Her left chest was then prepped and draped. An incision was made in the posterior axillary line proximal to the level of the fifth intercostal space. The lung was deflated prior to placing the port. Two ports were then placed posteriorly and one port was placed anteriorly. An assist port was placed anteroinferiorly under fluoroscopic vision. Lungs were mobilized off the chest wall bluntly. A cryoblock was then performed. The robot was brought to the field, camera port docked, camera placed. Robot targeted. Additional ports were then docked and instruments placed. Chest was then explored. A portion of the upper lobe was firmly adherent to the underlying chest wall. After mobilization of a portion of the upper lobe, clearly a clear area of attachment between the left upper lobe abscess to the chest wall was identified. It was mobilized off the chest wall using blunt dissection, exposing a large area of communication into the chest wall musculature. Pleura along with the abscess was then excised en bloc circumferentially, taking care to preserve the phrenic nerve. There was an area of erosion through the rib into the chest wall. Additional material was debrided from the chest wall as possible. A left upper lobe wedge to resect the upper lobe abscess was then performed using multiple firings of Endo-BILLY stapler. The abscess was subsequently removed. The upper lobe wedge was placed in an EndoBag. Hemostasis was found to be adequate. The robotic instruments were removed and the robot was undocked from the field. The chest was irrigated with a large amount of antibiotic-containing solution. The wedge was brought out using an EndoBag. An intercostal block was performed. Hemostasis was found to be adequate. A #28 chest tube was placed apically and posteriorly, respectively, through the port incisions. The lungs were re-expanded. All ports were removed. The chest wall incisions were closed in layers. Chest tube was attached to Pleur-Evac. Dressing was applied and the patient was transferred to the ICU in critical condition. Joon Galvan MD TID: [id number] RECEIPT: [id number] ANITHA/NIKHIL
[2025-03-21] VITALS (37 sets, daily range): BP systolic 89–127; BP diastolic 47–75; PULSE 59–84; RESP 7–22; O2SAT 93–100
[2025-03-21] MEDS: ringers solution, lacted 1,000 ML IV SCH (01:03)
[2025-03-21 05:12] LABS: ABG BASE EXCESS -9.0 mmol/L (-2.0-3.0); ABG HCO3 16.7 mmol/L (21.0-28.0); ABG OXYGEN SATURATION 98.3 % (94.0-98.0); ABG PCO2 (T) 33.6 mmHg (32.0-45.0); ABG PH (T) 7.308 (7.350-7.450); ABG PO2 (T) 116.3 mmHg (83.0-108.0); FCOHb 0.8 % (0.5-1.5); FHHb 1.7 % (0.0-5.0); FIO2 40.0 mmHg/%; FMetHb 0.3 % (0.0-1.5); FO2Hb 97.2 % (94.0-98.0); PATIENT TEMPERATURE 35.9; PEEP 5 cm H2O; RESPIRATORY RATE 14 b/min; TIDAL VOLUME 450 mL; TOTAL HEMOGLOBIN 11.0 G/dl (12.0-16.0)
[2025-03-21 05:37] LABS: MEAN PLATELET VOLUME 7.1 FL (7.4-10.4); RED CELL DISTRIBUTION WIDTH 16.1 % (11.5-14.5)
--- NOTE | 2025-03-21 05:45 | RADIOLOGY REPORT ---
CHEST RADIOGRAPH Indication: ET Tube PLacement Technique: Single frontal view of the chest was obtained COMPARISON: DI CHEST,SINGLE VIEW on DOS: 03/20/25, DI CHEST,SINGLE VIEW on DOS: 03/19/25, DI CHEST,SINGLE VIEW on DOS: 03/19/25, CT CT CHEST on DOS: 03/17/25, DI CHEST,SINGLE VIEW on DOS: 03/16/25 FINDINGS: Lines and Tubes: New endotracheal tube tip projects approximately 2.7 cm above the level of the vik. Left internal jugular central venous catheter tip projects over the proximal superior vena cava. Left chest tubes directed toward the apex and lung base. Lungs: Trace bilateral pleural effusions and moderate patchy left perihilar pulmonary airspace disease with mild consolidative features. No pneumothorax. Cardiomediastinal contours: Unremarkable Bones: Unremarkable IMPRESSION: 1. New endotracheal tube in appropriate position. Chest tubes and left internal jugular central venous catheter as above. 2. Trace bilateral pleural effusions and moderate patchy left perihilar pulmonary airspace disease with mild consolidative features.
[2025-03-21 05:51] LABS: MODE Vent- SIMV VC
[2025-03-21 05:52] LABS: CREATININE 0.77 MG/DL (0.40-0.90); PHOSPHORUS 5.5 MG/DL (2.3-4.5); TOTAL CARBON DIOXIDE 19.8 MMOL/L (24-32); eCRCL 75 ML/MIN; eGFR 78 ML/MIN
--- NOTE | 2025-03-21 12:34 | PROGRESS NOTE- Residence ---
Progress Note - Resident Providers to CC Resident Creating Document: АЛЕКСАНДР MCCONNELL RES CC: JEN BRASHER DO ~ Antibiotic Timeout Antibiotic Ordered?: Yes Subjective Patient was seen and examined at the bedside. Patient is intubated and sedated. Patient moans to pain. Patient has a chest tube on the left side with a about 400 mL of hemorrhagic fluid today. Patient appears to be edematous. Patient's swelling and erythema on the right dorsum of the hand seems to be improved. Patient underwent left upper lobe abscess drainage and chest tube placement on 03/20/2025 Objective Vital Signs Date Time Temp Pulse Resp B/P (MAP) Pulse Ox O2 Delivery O2 Flow Rate FiO2 03/21/25 12:00 96.8 73 18 127/75 (92) 98 Mechanical Ventilator 35 03/20/25 08:00 0.0 Result Diagram: 03/21/25 0505 03/21/25 0505 General: Thin built middle-aged woman, intubated and sedated, edematous HEENT: PERRLA, no icterus, pallor, lymphadenopathy, carotid bruit Respiratory system: Bilateral vesicular breath sounds heard, no adventitious breath sounds, chest tube with 400 mL of hemorrhagic fluid as output CVS: S1-S2 heard, grade 3/6 HSM in the mitral area radiating to the tricuspid area GI: Soft, nontender, no organomegaly, no guarding/rigidity, bowel sounds present Neuro: Could not be tested as the patient is intubated and sedated Extremities: Swelling erythema, tenderness, warm to touch present in the dorsal surface of the right hand (improving) Skin: Warm and dry, patchy circular bald spot present on the scalp on the left frontal region, patchy white discoloration of the skin present all over the body. Coagulation Studies Laboratory Tests Test 03/13/25 04:42 03/20/25 08:40 03/20/25 20:55 D-Dimer 2.39 MG/L FEU (0-0.50) H D-Dimer Comment Activated Partial Thromboplast Time 40 SECONDS (22-32) *H Prothrombin Time 12.4 SECONDS (9.0-12.0) H INR International Normalized Ratio 1.2 INR Coagulation Comments Assessment Assessment 54-year-old female with PMH of Hypothyroidism, Seizure presented to the ED in view of right upper extremity swollen pain tenderness. Patient is admitted for the evaluation management of right hand cellulitis. CT chest was reviewed which showed mass that was invading the chest wall, patient has a remote methamphetamine abuse (possible IV drug abuse). Patient underwent surgery for left upper lobe abscess draining into the chest wall on 03/20/2025. Plan Plan Right hand cellulitis, improving Tenosynovitis, less likely Sepsis, POA Continue IV vancomycin until 10/30/2024 Elevation and moving fingers recommended per Dr. Romero (orthopedic), appreciate recommendations MRSA bacteremia Hematogenous spread Suspicion for MRSA metastasis to vertebral bone, ruled out Blood cultures on 03/15, cleared which is fairly fast Leukocytosis, downtrending Possible source right hand cellulitis/IV drug abuse MRI CTL spine with contrast, prevertebral edema which is more likely reactive rather than infective No PICC line until blood cultures are sterile Continue antibiotics as per above Possible left sternoclavicular joint infection, ruled out Left upper lobe empyema and assistance with extension to the chest wall History of possible IV drug abuse s/p robotic wedge resection of upper lobe and chest wall abscess with debridement and chest tube placement on 03/21/2025 Continue antibiotics until 04/26/2025 Endocarditis, ruled out Echo: Normal MV annulus with thickened leaflets without stenosis. Moderate MR. Currently [place] criteria not met Septic shock, resolved Most likely secondary to sternoclavicular joint infection, bacteremia and cellulitis IV fluid resuscitation Tinea capitis/cruris Terbinafine p.o. has been used as outpatient for two months per the patient Terbinafine cream topical Disposition: Continue antibiotics as per above, SNF discharge planning Александр Mcconnell MD Internal Medicine, PGY 2 Date of Service: Mar 21, 2025 Billing Provider: JEN BRASHER DO Addendum Patient seen and examined with Dr. Mcconnell. Agree with the above assessment and plan. Patient was seen today in the ICU as she remained intubated s/p robotic wedge resection of upper lobe abscess and debridement of chest wall. Continue Vanco for a planned 6 week course АЛЕКСАНДР MCCONNELL, RES Mar 21, 2025 12:34 JEN BRASHER DO Mar 21, 2025 21:42
[2025-03-21] MEDS: morphine 4 MG/ML inj SYRINge IV PRN (12:49)
[2025-03-21] MEDS: ipratropium/albuterol 3ml nebule NEB PRN (12:50)
[2025-03-21] MEDS: ketorolac trometh 30MG/ML vial 30 MG/ML VIAL IV PRN (13:34)
[2025-03-21] MEDS: HYDROmorph/NS 0.2 mg/ml PCA 100 ML IV SCH (14:20)
--- NOTE | 2025-03-21 15:14 | PROGRESS NOTE ---
Progress Note ID Providers to CC ~ Progress Note Progress Note: extubated/vss/lungs-min leak/cxr noted/labs noted a/p 1. s/p resection belkis abscess with chest wall debridement-doing well/cont antibx-pt ELIZABETH DRAKE MD Mar 21, 2025 15:14
--- NOTE | 2025-03-21 17:20 | PROGRESS NOTE- Residence ---
Progress Note - Resident Providers to CC Resident Creating Document: MARY HYMAN RES ~ Antibiotic Timeout Antibiotic Ordered?: Yes Subjective Patient was seen and examined at the bedside. Patient was extubated this afternoon and is currently on 4 L of oxygen through nasal cannula Patient has a chest tube on the left side with a about 400 mL of hemorrhagic fluid today. Patient appears to be edematous. Patient underwent left upper lobe abscess drainage and chest tube placement on 03/20/2025. Vital signs stable. Objective Vital Signs Date Time Temp Pulse Resp B/P (MAP) Pulse Ox O2 Delivery O2 Flow Rate FiO2 03/21/25 16:00 97.3 73 10 101/55 (70) 100 Nasal Cannula 4.0 03/21/25 12:51 40 Result Diagram: 03/21/25 0505 03/21/25 0505 General- patient is alert , awake, central line on the left side of the neck HEENT: Atraumatic, normocephalic, EOMI, anicteric sclera ; pink conjunctiva Neck: Trachea midline. Supple, full range of motion, no JVD Cardiac: Regular rhythm, regular rate with 2/6 systolic murmur at left lower sternal border, aortic area Respiratory: Equal breath sounds bilaterally, no tachypnea, no wheezing ,rub or rales, Chest: No accessory muscle use, tender left lateral ribcage in the anterior axillary line proximally T6-T7. Swelling of size 5 x 4 cm over the left side of chest, near left 2nd intercostal space, left sternal clavicular area which is little bit better than from yesterday. Gastrointestinal: Abdomen symmetric, non-distended, soft, non-tender, normal bowel sounds x4 quadrant, normoactive, no hepatosplenomegaly Musculoskeletal: swelling on dorsum of the right hand with the erythema and warm to touch and a region that has a proximally 6 x 6 cm, Swelling on dorsum of the right foot with no warmth or erythema Neurological: Mental status exam: alert and consciousness, orientation, memory, speech - Cranial nerve test: Cranial nerves 2-12 intact - Motor system: Nutrition, Tone 3+, Power 5/5, no involuntary movements - Sensory system: Intact - Reflex testing: Biceps, triceps and knee reflexes 2+ - Cerebellar: Normal Skin: Warm and dry Coagulation Studies Laboratory Tests Test 03/13/25 04:42 03/20/25 08:40 03/20/25 20:55 D-Dimer 2.39 MG/L FEU (0-0.50) H D-Dimer Comment Activated Partial Thromboplast Time 40 SECONDS (22-32) *H Prothrombin Time 12.4 SECONDS (9.0-12.0) H INR International Normalized Ratio 1.2 INR Coagulation Comments Assessment Assessment 54-year-old female with PMH of Hypothyroidism, Seizure presented to the ED in view of right upper extremity swollen pain tenderness. Patient is admitted for the evaluation management of right hand cellulitis. CT chest was reviewed which showed mass that was invading the chest wall, patient has a remote methamphetamine abuse (possible IV drug abuse). Patient underwent surgery for left upper lobe abscess draining into the chest wall on 03/20/2025. Plan Plan Right hand cellulitis, improving Tenosynovitis, ruled out Sepsis, POA Continue IV vancomycin until 10/30/2024 Elevation and moving fingers recommended per Dr. Romero (orthopedic), appreciate recommendations Empyema necessitans MRSA bacteremia Hematogenous spread Suspicion for MRSA metastasis to vertebral bone, ruled out Blood cultures on 03/15, cleared which is fairly fast Leukocytosis, downtrending Possible source right hand cellulitis/IV drug abuse MRI CTL spine with contrast, prevertebral edema which is more likely reactive rather than infective No PICC line until blood cultures are sterile Continue antibiotics as per above Possible left sternoclavicular joint infection, ruled out Left upper lobe empyema and assistance with extension to the chest wall History of possible IV drug abuse s/p robotic wedge resection of upper lobe and chest wall abscess with debridement and chest tube placement on 03/21/2025 Continue antibiotics until 04/26/2025 Endocarditis, ruled out Echo: Normal MV annulus with thickened leaflets without stenosis. Moderate MR. Currently [place] criteria not met Septic shock, resolved Most likely secondary to sternoclavicular joint infection, bacteremia and cellulitis IV fluid resuscitation Tinea capitis/cruris Terbinafine p.o. has been used as outpatient for two months per the patient Terbinafine cream topical Disposition: Continue antibiotics as per above, plan downgrade to PCU tomorrow, SNF discharge planning Mary Walters MD Internal Medicine, PGY 2 Date of Service: Mar 21, 2025 Billing Provider: SHAWNA HARO MD Common Visit Codes: [id number] INP/OBS CARE(MOD) MARY HYMAN, RES Mar 21, 2025 17:20 SHAWNA HARO MD Mar 21, 2025 17:46
[2025-03-22] VITALS (24 sets, daily range): BP systolic 98–137; BP diastolic 53–82; PULSE 77–89; RESP 8–19; TEMP 97.9; O2SAT 83–100
[2025-03-22] MEDS: VANCOMYCIN LEVEL IV ONE (02:35)
[2025-03-22] MEDS: PCA WASTE DOCUMENTATION 1 MG ML MC SCH (04:22)
[2025-03-22 05:45] LABS: MEAN PLATELET VOLUME 7.1 FL (7.4-10.4); RED CELL DISTRIBUTION WIDTH 16.6 % (11.5-14.5)
--- NOTE | 2025-03-22 05:52 | RADIOLOGY REPORT ---
CHEST RADIOGRAPH Indication: POST OP Technique: Single frontal view of the chest was obtained COMPARISON: DI CHEST,SINGLE VIEW on DOS: 03/21/25, DI CHEST,SINGLE VIEW on DOS: 03/20/25, DI CHEST,SINGLE VIEW on DOS: 03/19/25, DI CHEST,SINGLE VIEW on DOS: 03/19/25, CT CT CHEST on DOS: 03/17/25 FINDINGS: Lines and Tubes: Status post interval extubation. Remaining lines and tubes unchanged. Lungs: Small bilateral pleural effusions and stable appearing patchy left mid lung zone and right basilar pulmonary airspace disease. No pneumothorax. Cardiomediastinal contours: Unremarkable Bones: Unremarkable IMPRESSION: 1. Status post interval extubation. Remaining lines and tubes unchanged. 2. Small bilateral pleural effusions and stable appearing patchy left mid lung zone and right basilar pulmonary airspace disease.
[2025-03-22 05:59] LABS: CREATININE 0.76 MG/DL (0.40-0.90); PHOSPHORUS 4.3 MG/DL (2.3-4.5); TOTAL CARBON DIOXIDE 22.0 MMOL/L (24-32); eCRCL 76 ML/MIN; eGFR 79 ML/MIN
[2025-03-22] MEDS: NUT.TX.GLUC.INTOLER,LAC-FR,SOY (GLUCERNA) 237 ML PO SCH (13:00)
--- NOTE | 2025-03-22 14:01 | PROGRESS NOTE- Residence ---
Progress Note - Resident Providers to CC Resident Creating Document: BORIS MCCONNELL, MARIOLA CC: HAILE MOSQUEDA MD ~ Antibiotic Timeout Antibiotic Ordered?: Yes Subjective Patient was seen and examined at the bedside. Patient was extubated and is on 4 L of nasal cannula. Patient had about 250 cc of serosanguineous fluid and about 2700 of fluid in total that was drained out into the atrium. Patient feels symptomatically better but continues to have pain in the right upper extremity, fatigue. Patient's chest tube is also removed. Patient is downgraded to the floor today. Objective Vital Signs Date Time Temp Pulse Resp B/P (MAP) Pulse Ox O2 Delivery O2 Flow Rate FiO2 03/22/25 12:00 86 14 121/76 (91) 97 Room Air 03/22/25 11:00 99.1 4.0 03/22/25 10:04 28 Result Diagram: 03/22/25 0500 03/22/25 0500 General: Thin built middle-aged woman, alert awake and oriented, less edematous relatively HEENT: PERRLA, no icterus, pallor, lymphadenopathy, carotid bruit Respiratory system: Bilateral vesicular breath sounds heard, no adventitious breath sounds, chest tube with 250 mL of serosanguineous fluid as output CVS: S1-S2 heard, grade 3/6 HSM in the mitral area radiating to the tricuspid area GI: Soft, nontender, no organomegaly, no guarding/rigidity, bowel sounds present Neuro: No focal neurological deficits Extremities: Swelling erythema, tenderness, warm to touch present in the dorsal surface of the right hand (improving) Skin: Warm and dry, patchy circular bald spot present on the scalp on the left frontal region, patchy white discoloration of the skin present all over the body. Coagulation Studies Laboratory Tests Test 03/13/25 04:42 03/20/25 08:40 03/20/25 20:55 D-Dimer 2.39 MG/L FEU (0-0.50) H D-Dimer Comment Activated Partial Thromboplast Time 40 SECONDS (22-32) *H Prothrombin Time 12.4 SECONDS (9.0-12.0) H INR International Normalized Ratio 1.2 INR Coagulation Comments Assessment Assessment 54-year-old female with PMH of Hypothyroidism, Seizure presented to the ED in view of right upper extremity swollen pain tenderness. Patient is admitted for the evaluation management of right hand cellulitis. CT chest was reviewed which showed mass that was invading the chest wall, patient has a remote methamphetamine abuse (possible IV drug abuse). Patient underwent surgery for left upper lobe abscess draining into the chest wall on 03/20/2025. Plan Plan Right hand cellulitis, improving Tenosynovitis, less likely Sepsis, POA Continue IV vancomycin until 04/26/2025 Elevation and moving fingers recommended per Dr. Romero (orthopedic), appreciate recommendations MRSA bacteremia Hematogenous spread Suspicion for MRSA metastasis to vertebral bone, ruled out Blood cultures on 03/15, cleared which is fairly fast Leukocytosis, downtrending Possible source right hand cellulitis/IV drug abuse Can plan for PICC line as blood cultures are sterile down the line Continue antibiotics as per above Possible left sternoclavicular joint infection, ruled out Left upper lobe empyema with extension to the chest wall History of possible IV drug abuse s/p robotic wedge resection of upper lobe and chest wall abscess with debridement and chest tube placement on 03/21/2025 Continue antibiotics until 04/26/2025 Endocarditis, ruled out Echo: Normal MV annulus with thickened leaflets without stenosis. Moderate MR. Currently [place] criteria not met Septic shock, resolved Most likely secondary to bacteremia, empyema necessitans and cellulitis IV fluid resuscitation Tinea capitis/cruris Terbinafine p.o. has been used as outpatient for two months per the patient Terbinafine cream topical Disposition: Continue antibiotics as per above, SNF discharge planning Boris Mcconnell MD Internal Medicine, PGY 2 Agree with above note. Patient seen and examined with Dr. Mcconnell. Continue vancomycin. Date of Service: Mar 22, 2025 Billing Provider: HAILE MOSQUEDA MD, SIVA, RES Mar 22, 2025 14:01 HAILE MOSQUEDA MD Mar 22, 2025 17:10
--- NOTE | 2025-03-22 14:12 | PROGRESS NOTE- Residence ---
Progress Note - Resident Providers to CC Resident Creating Document: MARY HYMAN RES ~ Antibiotic Timeout Antibiotic Ordered?: Yes Subjective Patient was seen and examined at the bedside. Patient was extubated and is on 4 L of nasal cannula. Patient had about 250 cc of serosanguineous fluid and about 2700 of fluid in total that was drained out into the atrium. Patient feels symptomatically better but continues to have pain in the right upper extremity, fatigue. Patient's chest tube is also removed. Patient is downgraded to the floor today. Objective Vital Signs Date Time Temp Pulse Resp B/P (MAP) Pulse Ox O2 Delivery O2 Flow Rate FiO2 03/22/25 12:00 86 14 121/76 (91) 97 Room Air 03/22/25 11:00 99.1 4.0 03/22/25 10:04 28 Result Diagram: 03/22/25 0500 03/22/25 0500 General- patient is alert , awake, central line on the left side of the neck HEENT: Atraumatic, normocephalic, EOMI, anicteric sclera ; pink conjunctiva Neck: Trachea midline. Supple, full range of motion, no JVD Cardiac: Regular rhythm, regular rate with 2/6 systolic murmur at left lower sternal border, aortic area Respiratory: Equal breath sounds bilaterally, no tachypnea, no wheezing ,rub or rales, Chest: No accessory muscle use, tender left lateral ribcage in the anterior axillary line proximally T6-T7. Swelling of size 5 x 4 cm over the left side of chest, near left 2nd intercostal space, left sternal clavicular area which is little bit better than from yesterday. Gastrointestinal: Abdomen symmetric, non-distended, soft, non-tender, normal bowel sounds x4 quadrant, normoactive, no hepatosplenomegaly Musculoskeletal: swelling on dorsum of the right hand with the erythema and warm to touch and a region that has a proximally 6 x 6 cm, Swelling on dorsum of the right foot with no warmth or erythema Neurological: Mental status exam: alert and consciousness, orientation, memory, speech - Cranial nerve test: Cranial nerves 2-12 intact - Motor system: Nutrition, Tone 3+, Power 5/5, no involuntary movements - Sensory system: Intact - Reflex testing: Biceps, triceps and knee reflexes 2+ - Cerebellar: Normal Skin: Warm and dry Coagulation Studies Laboratory Tests Test 03/13/25 04:42 03/20/25 08:40 03/20/25 20:55 D-Dimer 2.39 MG/L FEU (0-0.50) H D-Dimer Comment Activated Partial Thromboplast Time 40 SECONDS (22-32) *H Prothrombin Time 12.4 SECONDS (9.0-12.0) H INR International Normalized Ratio 1.2 INR Coagulation Comments Assessment Assessment 54-year-old female with PMH of Hypothyroidism, Seizure presented to the ED in view of right upper extremity swollen pain tenderness. Patient is admitted for the evaluation management of right hand cellulitis. CT chest was reviewed which showed mass that was invading the chest wall, patient has a remote methamphetamine abuse (possible IV drug abuse). Patient underwent surgery for left upper lobe abscess draining into the chest wall on 03/20/2025. Plan Plan Empyema necessitatans Right hand cellulitis, improving Tenosynovitis, ruled out Sepsis, POA Septic shock, resolved Continue IV vancomycin until 04/26/2025 Elevation and moving fingers recommended per Dr. 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 Moderate MR. Currently [place] criteria not met Septic shock, resolved Most likely secondary to bacteremia, empyema necessitans and cellulitis IV fluid resuscitation Tinea capitis/cruris Terbinafine p.o. has been used as outpatient for two months per the patient Terbinafine cream topical Disposition: Continue antibiotics as per above, SNF discharge planning Mary Walters MD Internal Medicine, PGY 2 Date of Service: Mar 22, 2025 Billing Provider: SHAWNA HARO MD Common Visit Codes: [id number] INP/OBS CARE(MOD) MARY HYMAN, RES Mar 22, 2025 14:12 SHAWNA HARO MD Mar 23, 2025 08:32
[2025-03-22] MEDS: HYDROcodone/acetaminophen 10/325mg tab PO PRN ×2 (18:06→23:25)
--- NOTE | 2025-03-22 18:27 | PROGRESS NOTE ---
Progress Note ID Providers to CC ~ Progress Note Progress Note: pain improving/vss/lungs-no leak/labs noted a/p 1. s/p belkis wedge with chest wall debridement-doing well/cont antibx ELIZABETH DRAKE MD Mar 22, 2025 18:26
[2025-03-23] VITALS (7 sets, daily range): BP systolic 107–135; BP diastolic 59–88; PULSE 76–89; RESP 12–19; TEMP 97–97.9; O2SAT 90–99
[2025-03-23 04:43] LABS: MEAN PLATELET VOLUME 7.1 FL (7.4-10.4); RED CELL DISTRIBUTION WIDTH 16.0 % (11.5-14.5)
[2025-03-23 04:57] LABS: CREATININE 0.76 MG/DL (0.40-0.90); PHOSPHORUS 3.9 MG/DL (2.3-4.5); TOTAL CARBON DIOXIDE 24.0 MMOL/L (24-32); eCRCL 76 ML/MIN; eGFR 79 ML/MIN
--- NOTE | 2025-03-23 07:38 | RADIOLOGY REPORT ---
CLINICAL INFORMATION: 54 years old, Female; POST OP. TECHNIQUE: Single AP portable chest radiograph was obtained. COMPARISON: DI CHEST,SINGLE VIEW on DOS: 03/22/25, DI CHEST,SINGLE VIEW on DOS: 03/21/25, DI CHEST,SINGLE VIEW on DOS: 03/20/25 FINDINGS: Interval removal of the left chest tubes. Stable satisfactory positioning of the left internal jugular central venous catheter. Bilateral interstitial opacities and patchy airspace opacities appear unchanged. No pneumothorax visualized. No other significant interval change. IMPRESSION: 1. Interval removal of the left chest tubes. 2. No other significant interval change as described above.
--- NOTE | 2025-03-23 10:39 | PROGRESS NOTE- Residence ---
Progress Note - Resident Providers to CC Resident Creating Document: АЛЕКСАНДР MCCONNELL RES CC: JEN BRASHER DO ~ Antibiotic Timeout Antibiotic Ordered?: Yes Subjective Patient is seen and examined at bedside. Patient states that she does not want to be in the MRI admission as she feels suffocated and was sobbing. Otherwise, clinically patient seems to be improving-pain is improved, swelling is improved. Objective Vital Signs Date Time Temp Pulse Resp B/P (MAP) Pulse Ox O2 Delivery O2 Flow Rate FiO2 03/23/25 07:51 14 03/23/25 06:30 81 03/23/25 02:00 97.4 122/78 (93) 97 Nasal Cannula 4.0 03/22/25 22:51 28 Result Diagram: 03/23/25 0348 03/23/25 0348 General: Thin built middle-aged woman, alert awake and oriented, less edematous relatively HEENT: PERRLA, no icterus, pallor, lymphadenopathy, carotid bruit Respiratory system: Bilateral vesicular breath sounds heard, no adventitious breath sounds, chest tube with 250 mL of serosanguineous fluid as output CVS: S1-S2 heard, grade 3/6 HSM in the mitral area radiating to the tricuspid area GI: Soft, nontender, no organomegaly, no guarding/rigidity, bowel sounds present Neuro: No focal neurological deficits Extremities: Swelling erythema, tenderness, warm to touch present in the dorsal surface of the right hand (improving) Skin: Warm and dry, patchy circular bald spot present on the scalp on the left frontal region, patchy white discoloration of the skin present all over the body. Coagulation Studies Laboratory Tests Test 03/13/25 04:42 03/20/25 08:40 03/20/25 20:55 D-Dimer 2.39 MG/L FEU (0-0.50) H D-Dimer Comment Activated Partial Thromboplast Time 40 SECONDS (22-32) *H Prothrombin Time 12.4 SECONDS (9.0-12.0) H INR International Normalized Ratio 1.2 INR Coagulation Comments Assessment Assessment 54-year-old female with PMH of Hypothyroidism, Seizure presented to the ED in view of right upper extremity swollen pain tenderness. Patient is admitted for the evaluation management of right hand cellulitis. CT chest was reviewed which showed mass that was invading the chest wall, patient has a remote methamphetamine abuse (possible IV drug abuse). Patient underwent surgery for left upper lobe abscess draining into the chest wall on 03/20/2025. Plan Plan Right hand cellulitis, improving Tenosynovitis, less likely Sepsis, POA Continue IV vancomycin until 04/26/2025 Elevation and moving fingers recommended per Dr. Romero (orthopedic), appreciate recommendations MRSA bacteremia Hematogenous spread Suspicion for MRSA metastasis to vertebral bone, ruled out Blood cultures on 03/15, cleared which is fairly fast Leukocytosis, downtrending Possible source right hand cellulitis/IV drug abuse Can plan for PICC line as blood cultures are sterile down the line Continue antibiotics as per above Possible left sternoclavicular joint infection, ruled out Left upper lobe empyema with extension to the chest wall History of possible IV drug abuse s/p robotic wedge resection of upper lobe and chest wall abscess with debridement and chest tube placement on 03/21/2025 Continue antibiotics until 04/26/2025 Endocarditis, ruled out Echo: Normal MV annulus with thickened leaflets without stenosis. Moderate MR. Currently [place] criteria not met Septic shock, resolved Most likely secondary to bacteremia, empyema necessitans and cellulitis IV fluid resuscitation Tinea capitis/cruris Terbinafine p.o. has been used as outpatient for two months per the patient Terbinafine cream topical Disposition: Continue antibiotics as per above, SNF discharge planning, PICC line placement Александр Mcconnell MD Internal Medicine, PGY 2 Date of Service: Mar 23, 2025 Billing Provider: JEN BRASHER DO Addendum Patient was seen and examined with Dr. Mcconnell. Agree with the above assessment and plan. Patient seemed to be having a rough day mentally, however, things continue to progress forward from and ID standpoint. She is out of the ICU and her chest tube is out. She is open to SNF placement for the 6 week duration of her IV Vanco. АЛЕКСАНДР MCCONNELL, RES Mar 23, 2025 10:39 JEN BRASHER DO Mar 23, 2025 22:30
[2025-03-23] MEDS ORDERED: iohexol 300mg/ml 100ml inj. ONE (11:19)
--- NOTE | 2025-03-23 11:40 | VASCULAR REPORT ---
Bilateral lower extremity venous duplex Clinical History: Bilateral leg swelling. Comparison: None. Findings: Duplex Doppler evaluation of the deep venous systems of both lower extremities from the common femoral veins to the popliteal veins including color Doppler and spectral/pulsed waveform analysis was performed. RIGHT SIDE: The common femoral vein demonstrates appropriate compressibility and waveform variability. There is compressibility/patency of the great saphenous vein at the proximal thigh. The femoral vein demonstrates appropriate compressibility and waveform variability. The deep femoral vein demonstrates appropriate compressibility and waveform variability. The popliteal vein demonstrates appropriate compressibility and waveform variability. There is normal compressibility at the tibioperoneal trunk. Subcutaneous edema is noted. LEFT SIDE: The common femoral vein demonstrates appropriate compressibility and waveform variability. There is compressibility/patency of the great saphenous vein at the proximal thigh. The femoral vein demonstrates appropriate compressibility and waveform variability. The deep femoral vein demonstrates appropriate compressibility and waveform variability. The popliteal vein demonstrates appropriate compressibility and waveform variability. There is normal compressibility at the tibioperoneal trunk. Subcutaneous edema is noted. Impression: 1. No right or left femoropopliteal venous thrombosis. 2. Bilateral subcutaneous edema.
--- NOTE | 2025-03-23 13:12 | RADIOLOGY REPORT ---
Indication: chest wall abscess Technique: CT axial images of the chest are obtained with intravenous contrast. Coronal and sagittal reformats were obtained. Radiation Dose Information: CTDI volume is 18 mGy. Dose-length product is 673 mGy*cm Comparison: CT CT CHEST on DOS: 03/17/25 FINDINGS: Trachea patent. No pneumothorax. Diffuse bilateral pulmonary airspace consolidation/ground-glass disease. Postsurgical changes Left upper lobe. Moderate right and small to moderate left pleural effusions. Loculated left upper lung pleural air-fluid collection measuring 1.4 x 4 cm. Less pronounced left lateral lung air-fluid collection within the pleural space measuring 2.7 x 1.1 cm. Air-fluid collection along the medial left chest pleural region anterior to the pulmonary arteries measuring 4 x 1.9 cm. There is a left anterior chest wall rim enhancing collection measuring 3.3 x 1.4 cm which communicates with the left left upper lung pleural cavity. There are small foci of air within this collection extending into the pleural space. Extensive chest wall soft tissue emphysema and edema The heart is normal in size. Left IJ catheter terminating at the confluence of the brachiocephalic vein and SVC. 10 mm pretracheal lymph node. Right hilar lymph node measuring 13 mm. Prevascular lymph node measuring 12 mm. Multiple other smaller mediastinal lymph nodes. No supraclavicular, axillary lymphadenopathy. Postsurgical changes of the GE junction. The osseous structures are stable. IMPRESSION: Interval development of mild multiple left pleural extra air-fluid collections which could represent small hydro pneumothoraces, extrapleural air-fluid collections measuring 1.4 x 4 cm, 2.7 x 1.1 cm, 4 x 1.9 cm. These course along the left upper, lateral lung, anterior to the mediastinum/pulmonary artery. Rim enhancing collection left anterior chest wall extending into the left lung/ pleural cavity. Component within the anterior chest wall measures 3.3 x 1.4 cm and may represent abscess. Moderate right and small left pleural effusions. Diffuse bilateral pulmonary airspace consolidation and ground-glass disease likely secondary to combination of infection / inflammatory / edematous etiologies.1 Mediastinal / hilar lymphadenopathy. Extensive /diffuse soft tissue edema. Prominent left chest wall soft tissue emphysema.
--- NOTE | 2025-03-23 18:54 | PROGRESS NOTE- Residence ---
Progress Note - Resident Providers to CC Resident Creating Document: MARY HYMAN, RES ~ Antibiotic Timeout Antibiotic Ordered?: Yes Subjective Patient is seen and examined at bedside. Patient was unable to receive IV Ativan due to shortage before MRI. Patient states that she does not want to be in the MRI admission as she feels suffocated and was sobbing. Otherwise, clinically patient seems to be improving-pain is improved, swelling is improved. We will plan to perform the MRI tomorrow with p.o. Ativan 30-60 minutes before MRI. Patient is still has swelling in her right hand and right foot. Pain still persists in the right hand. PICC line in the left central venous catheter is in place Objective Vital Signs Date Time Temp Pulse Resp B/P (MAP) Pulse Ox O2 Delivery O2 Flow Rate FiO2 03/23/25 18:10 16 03/23/25 15:00 97.2 89 107/67 (80) 98 Nasal Cannula 4.0 03/23/25 08:00 28 Result Diagram: 03/23/25 0348 03/23/25 0348 General- patient is alert , awake, central line on the left side of the neck HEENT: Atraumatic, normocephalic, EOMI, anicteric sclera ; pink conjunctiva Neck: Trachea midline. Supple, full range of motion, no JVD Cardiac: Regular rhythm, regular rate with 2/6 systolic murmur at left lower sternal border, aortic area Respiratory: Equal breath sounds bilaterally, no tachypnea, no wheezing ,rub or rales, Chest: No accessory muscle use, tender left lateral ribcage in the anterior axillary line proximally T6-T7. Swelling of size 5 x 4 cm over the left side of chest, near left 2nd intercostal space, left sternal clavicular area which is little bit better than from yesterday. Gastrointestinal: Abdomen symmetric, non-distended, soft, non-tender, normal bowel sounds x4 quadrant, normoactive, no hepatosplenomegaly Musculoskeletal: swelling on dorsum of the right hand with the erythema and warm to touch and a region that has a proximally 6 x 6 cm, Swelling on dorsum of the right foot with no warmth or erythema Neurological: Mental status exam: alert and consciousness, orientation, memory, speech - Cranial nerve test: Cranial nerves 2-12 intact - Motor system: Nutrition, Tone 3+, Power 5/5, no involuntary movements - Sensory system: Intact - Reflex testing: Biceps, triceps and knee reflexes 2+ - Cerebellar: Normal Skin: Warm and dry Coagulation Studies Laboratory Tests Test 03/13/25 04:42 03/20/25 08:40 03/20/25 20:55 D-Dimer 2.39 MG/L FEU (0-0.50) H D-Dimer Comment Activated Partial Thromboplast Time 40 SECONDS (22-32) *H Prothrombin Time 12.4 SECONDS (9.0-12.0) H INR International Normalized Ratio 1.2 INR Coagulation Comments Assessment Assessment 54-year-old female with PMH of Hypothyroidism, Seizure presented to the ED in view of right upper extremity swollen pain tenderness. Patient is admitted for the evaluation management of right hand cellulitis. CT chest was reviewed which showed mass that was invading the chest wall, patient has a remote methamphetamine abuse (possible IV drug abuse). Patient underwent surgery for left upper lobe abscess draining into the chest wall on 03/20/2025. Plan Plan Empyema necessitatans Right hand cellulitis, improving Tenosynovitis, ruled out Sepsis, POA Septic shock, resolved Continue IV vancomycin until 04/26/2025 Elevation and moving fingers recommended per Dr. 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 Moderate MR. Currently [place] criteria not met Septic shock, resolved Most likely secondary to bacteremia, empyema necessitans and cellulitis IV fluid resuscitation Tinea capitis/cruris Terbinafine p.o. has been used as outpatient for two months per the patient Terbinafine cream topical Disposition: Continue antibiotics as per above, SNF discharge planning Mary Walters MD Internal Medicine, PGY 2 Date of Service: Mar 23, 2025 Billing Provider: NATHAN GOLDSTEIN MD Common Visit Codes: [id number] INP/OBS CARE(HIGH) MARY HYMAN, RES Mar 23, 2025 18:54 NATHAN GOLDSTEIN MD Apr 05, 2025 08:43
[2025-03-23] MEDS: diazepam inj 5 MG/ML inj. IV ONE (19:27)
--- NOTE | 2025-03-23 20:45 | PROGRESS NOTE ---
Progress Note ID Providers to CC ~ Progress Note Progress Note: doing well/ct noted ELIZABETH DRAKE MD Mar 23, 2025 20:45
[2025-03-24] VITALS (13 sets, daily range): BP systolic 116–139; BP diastolic 76–86; PULSE 68–85; RESP 10–18; TEMP 96.9–97.6; O2SAT 90–100
[2025-03-24 03:17] LABS: MEAN PLATELET VOLUME 6.7 FL (7.4-10.4); RED CELL DISTRIBUTION WIDTH 16.0 % (11.5-14.5)
[2025-03-24 03:26] LABS: PHOSPHORUS 4.0 MG/DL (2.3-4.5)
--- NOTE | 2025-03-24 06:55 | RADIOLOGY REPORT ---
CHEST RADIOGRAPH Indication: POST OP Technique: Single frontal view of the chest was obtained Comparison: CT CT CHEST W/ IV CONTRAST on DOS: 03/23/25 FINDINGS: Lines and Tubes: There is a left cava. Lungs: Patchy left upper and lower lobe consolidation.. Pleura: Left pleural fluid. No pneumothorax. Cardiomediastinal contours: Unremarkable Bones: No acute osseous abnormality. IMPRESSION: 1. Left upper and lower lobe consolidation. 2. Left pleural fluid.
[2025-03-24] MEDS: albuterol 2.5 MG/3 ML nebule NEB SCH (11:00)
--- NOTE | 2025-03-24 12:32 | PROGRESS NOTE- Residence ---
Progress Note - Resident Providers to CC Resident Creating Document: PRASANNA MARC RES ~ Antibiotic Timeout Antibiotic Ordered?: Yes Subjective Patient is seen and examined at bedside. Patient is complaining of increasing right hand swelling. Patient states shortness for breath and wheezing. She is tolerating oral diet and is less anxious today. No other symptoms reported. Objective Vital Signs Date Time Temp Pulse Resp B/P (MAP) Pulse Ox O2 Delivery O2 Flow Rate FiO2 03/24/25 08:30 68 16 90 Room Air* 0 21 03/24/25 06:00 97.4 139/83 (101) Result Diagram: 03/24/25 0306 03/23/25 0348 General- patient is alert , awake, central line on the left side of the neck, no erythema or swelling surrounding the central line HEENT: Atraumatic, normocephalic, EOMI, anicteric sclera ; pink conjunctiva Neck: Trachea midline. Supple, full range of motion, no JVD Cardiac: Regular rhythm, regular rate with 2/6 systolic murmur at left lower sternal border, aortic area Respiratory: Diminished air movement bilaterally. Diffuse wheezing noted. Left upper lung crackles. Chest: No accessory muscle use, tender left lateral ribcage in the anterior axillary line proximally T6-T7. Swelling over the left side of chest, near left 2nd intercostal space, left sternal clavicular area which is little bit better than from yesterday. Gastrointestinal: Abdomen symmetric, non-distended, soft, non-tender, normal bowel sounds x4 quadrant, normoactive, no hepatosplenomegaly Musculoskeletal: significant edema on dorsum of the right hand with the erythema, tenderness and warmth. Also 2+ edema on dorsum of the right foot with no warmth or erythema Neurological: Mental status exam: alert and consciousness, orientation, memory, speech - Cranial nerve test: Cranial nerves 2-12 intact - Motor system: Nutrition, Tone 3+, Power 5/5, no involuntary movements - Sensory system: Intact - Reflex testing: Biceps, triceps and knee reflexes 2+ - Cerebellar: Normal Skin: Warm and dry Coagulation Studies Laboratory Tests Test 03/13/25 04:42 03/20/25 08:40 03/20/25 20:55 D-Dimer 2.39 MG/L FEU (0-0.50) H D-Dimer Comment Activated Partial Thromboplast Time 40 SECONDS (22-32) *H Prothrombin Time 12.4 SECONDS (9.0-12.0) H INR International Normalized Ratio 1.2 INR Coagulation Comments Assessment Assessment 54-year-old female with PMH of Hypothyroidism, Seizure presented to the ED in view of right upper extremity swollen pain tenderness. Patient is admitted for the evaluation management of right hand cellulitis. CT chest was reviewed which showed mass that was invading the chest wall, patient has a remote methamphetamine abuse (possible IV drug abuse). Patient underwent surgery for left upper lobe abscess draining into the chest wall on 03/20/2025. Plan Plan Empyema necessitatans Right hand cellulitis, improving Tenosynovitis, ruled out Sepsis, POA Septic shock, resolved Continue IV vancomycin until 04/26/2025 Elevation and moving fingers recommended per Dr. Romero (orthopedic), appreciate recommendations 03/24/2025 Patient with signs of anasarca, diffuse edema and increasing shortness of breath Hold fluids for now Lasix 40 mg IV one time Reassess tomorrow MRSA bacteremia Hematogenous spread Suspicion for MRSA metastasis to vertebral bone, ruled out Blood cultures on 03/15, cleared which is fairly fast Leukocytosis, downtrending Possible source right hand cellulitis/IV drug abuse Can plan for PICC line as blood cultures are sterile down the line Continue antibiotics as per above 03/24/2025 .WBC 10.9, down from 19.4 on 03/20/25 Vancomycin Q12h Day 10 Possible left sternoclavicular joint infection, ruled out 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 Left pleural fluid. Hold fluids today Lasix 40 mg IV one time dose, reassess tomorrow Strict I&O Daily weight Incentive spirometry Scheduled albuterol Endocarditis, ruled out Echo: Normal MV annulus with thickened leaflets without stenosis. Moderate MR. Currently [place] criteria not met Septic shock, resolved Most likely secondary to bacteremia, empyema necessitans and cellulitis IV fluid resuscitation placed initially, now on hold Tinea capitis/cruris Terbinafine p.o. has been used as outpatient for two months per the patient Terbinafine cream topical Disposition: Continue medical treatment, SNF discharge plan with PICC line Resident MD attestation The above note has been reviewed and supervised by a senior resident PGY2/PGY3 Patient was seen, examined and discussed with the attending physician Date of Service: Mar 24, 2025 Billing Provider: NATHAN GOLDSTEIN MD Common Visit Codes: [id number] INP/OBS CARE(HIGH) PRASANNA MARC, RES Mar 24, 2025 12:32 NATHAN GOLDSTEIN MD Apr 05, 2025 08:44
--- NOTE | 2025-03-24 14:33 | PROGRESS NOTE- Residence ---
Progress Note - Resident Providers to CC Resident Creating Document: АЛЕКСАНДР MCCONNELL, MARIOLA CC: JEN BRASHER DO ~ Antibiotic Timeout Antibiotic Ordered?: Yes Subjective Patient is seen and examined at bedside. Patient states that she continues to have pain in her right upper extremity, has not received the pain medication. Objective Vital Signs Date Time Temp Pulse Resp B/P (MAP) Pulse Ox O2 Delivery O2 Flow Rate FiO2 03/24/25 08:30 68 16 90 Room Air* 0 21 03/24/25 06:00 97.4 139/83 (101) Result Diagram: 03/24/25 0306 03/23/25 0348 General: Thin built middle-aged woman, alert awake and oriented, less edematous relatively HEENT: PERRLA, no icterus, pallor, lymphadenopathy, carotid bruit Respiratory system: Bilateral vesicular breath sounds heard, no adventitious breath sounds, chest tube removed CVS: S1-S2 heard, grade 3/6 HSM in the mitral area radiating to the tricuspid area GI: Soft, nontender, no organomegaly, no guarding/rigidity, bowel sounds present Neuro: No focal neurological deficits Extremities: Swelling erythema, tenderness, warm to touch present in the dorsal surface of the right hand (improving) Skin: Warm and dry, patchy circular bald spot present on the scalp on the left frontal region, patchy white discoloration of the skin present all over the body. Coagulation Studies Laboratory Tests Test 03/13/25 04:42 03/20/25 08:40 03/20/25 20:55 D-Dimer 2.39 MG/L FEU (0-0.50) H D-Dimer Comment Activated Partial Thromboplast Time 40 SECONDS (22-32) *H Prothrombin Time 12.4 SECONDS (9.0-12.0) H INR International Normalized Ratio 1.2 INR Coagulation Comments Assessment Assessment 54-year-old female with PMH of Hypothyroidism, Seizure presented to the ED in view of right upper extremity swollen pain tenderness. Patient is admitted for the evaluation management of right hand cellulitis. CT chest was reviewed which showed mass that was invading the chest wall, patient has a remote methamphetamine abuse (possible IV drug abuse). Patient underwent surgery for left upper lobe abscess draining into the chest wall on 03/20/2025. Plan Plan Right hand cellulitis, improving Tenosynovitis, less likely Sepsis, POA Continue IV vancomycin until 04/26/2025 Elevation and moving fingers recommended per Dr. Romero (orthopedic), appreciate recommendations MRSA bacteremia Hematogenous spread Suspicion for MRSA metastasis to vertebral bone, ruled out Blood cultures on 03/15, cleared which is fairly fast Leukocytosis, normal Possible source right hand cellulitis/IV drug abuse Can plan for PICC line as blood cultures are sterile Continue antibiotics as per above Possible left sternoclavicular joint infection, ruled out Left upper lobe empyema with extension to the chest wall History of possible IV drug abuse s/p robotic wedge resection of upper lobe and chest wall abscess with debridement and chest tube placement on 03/21/2025 Continue antibiotics until 04/26/2025 Endocarditis, ruled out Echo: Normal MV annulus with thickened leaflets without stenosis. Moderate MR. Currently [place] criteria not met Septic shock, resolved Most likely secondary to bacteremia, empyema necessitans and cellulitis IV fluid resuscitation Tinea capitis/cruris Terbinafine p.o. has been used as outpatient for two months per the patient Terbinafine cream topical Disposition: Continue antibiotics as per above, SNF discharge planning, PICC line placement Александр Mcconnell MD Internal Medicine, PGY 2 Date of Service: Mar 24, 2025 Billing Provider: JEN BRASHER DO Addendum Patient seen and examined with Dr. Mcconnell. Agree with the above assessment and plan. Patient was emotional again today, trying to get cleaned up but she continues to make progress from an ID standpoint. WBC count normalized today. Follow up pending MRIs АЛЕКСАНДР MCCONNELL, RES Mar 24, 2025 14:33 JEN BRASHER DO Mar 24, 2025 22:57
--- NOTE | 2025-03-24 16:34 | PROGRESS NOTE ---
Progress Note ID Providers to CC ~ Progress Note Progress Note: surgical issues-call if needed ELIZABETH DRAKE MD Mar 24, 2025 16:34
[2025-03-25] VITALS (16 sets, daily range): BP systolic 117–143; BP diastolic 63–90; PULSE 80–93; RESP 14–18; TEMP 97.3–97.8; O2SAT 88–98
--- NOTE | 2025-03-25 06:37 | RADIOLOGY REPORT ---
CHEST RADIOGRAPH Indication: POST OP Technique: Single frontal view of the chest was obtained Comparison: DI CHEST,SINGLE VIEW on DOS: 03/24/25, CT CT CHEST W/ IV CONTRAST on DOS: 03/23/25, DI CHEST,SINGLE VIEW on DOS: 03/23/25, DI CHEST,SINGLE VIEW on DOS: 03/22/25, DI CHEST,SINGLE VIEW on DOS: 03/21/25, DI CHEST,SINGLE VIEW on DOS: 03/24/25 FINDINGS: Lines and Tubes: There is a left cava. Lungs: Patchy left upper and lower lobe consolidation.. Pleura: Left pleural fluid. No pneumothorax. Cardiomediastinal contours: Unremarkable Bones: No acute osseous abnormality. IMPRESSION: 1. Left upper and lower lobe consolidation. 2. Left pleural fluid.
[2025-03-25] MEDS ORDERED: bisacodyl 10mg suppository rectal RC PRN (08:20)
[2025-03-25 08:54] LABS: MEAN PLATELET VOLUME 7.0 FL (7.4-10.4); RED CELL DISTRIBUTION WIDTH 15.9 % (11.5-14.5)
[2025-03-25 09:11] LABS: CREATININE 0.81 MG/DL (0.40-0.90); TOTAL CARBON DIOXIDE 24.2 MMOL/L (24-32); eCRCL 71 ML/MIN; eGFR 74 ML/MIN
[2025-03-25] MEDS: bisacodyl 10mg suppository rectal RC STA (09:16)
--- NOTE | 2025-03-25 15:23 | PROGRESS NOTE- Residence ---
Progress Note - Resident Providers to CC Resident Creating Document: MARY HYMAN RES ~ Antibiotic Timeout Antibiotic Ordered?: Yes Subjective Patient was seen and examined at the bedside. She reports improvement of pain in the right hand about 7/10 but still has 10/10 pain in the right leg. But patient has not had a bowel movement in the last week. Rectal suppository, laxatives Colace and MiraLax were added. Objective Vital Signs Date Time Temp Pulse Resp B/P (MAP) Pulse Ox O2 Delivery O2 Flow Rate FiO2 03/25/25 12:19 80 18 Nasal Cannula 2.0 03/25/25 12:10 94 28 03/25/25 02:00 97.3 117/63 (81) Result Diagram: 03/25/25 0846 03/25/25 0846 General- patient is alert , awake, central line on the left side of the neck HEENT: Atraumatic, normocephalic, EOMI, anicteric sclera ; pink conjunctiva Neck: Trachea midline. Supple, full range of motion, no JVD Cardiac: Regular rhythm, regular rate with 2/6 systolic murmur at left lower sternal border, aortic area Respiratory: Equal breath sounds bilaterally, no tachypnea, no wheezing ,rub or rales, Chest: No accessory muscle use, tender left lateral ribcage in the anterior axillary line proximally T6-T7. Swelling of size 5 x 4 cm over the left side of chest, near left 2nd intercostal space, left sternal clavicular area which is little bit better than from yesterday. Gastrointestinal: Abdomen symmetric, non-distended, soft, non-tender, normal bowel sounds x4 quadrant, normoactive, no hepatosplenomegaly Musculoskeletal: swelling on dorsum of the right hand with the erythema and warm to touch and a region that has a proximally 6 x 6 cm, Swelling on dorsum of the right foot with no warmth or erythema Neurological: Mental status exam: alert and consciousness, orientation, memory, speech - Cranial nerve test: Cranial nerves 2-12 intact - Motor system: Nutrition, Tone 3+, Power 5/5, no involuntary movements - Sensory system: Intact - Reflex testing: Biceps, triceps and knee reflexes 2+ - Cerebellar: Normal Skin: Warm and dry Coagulation Studies Laboratory Tests Test 03/13/25 04:42 03/20/25 08:40 03/20/25 20:55 D-Dimer 2.39 MG/L FEU (0-0.50) H D-Dimer Comment Activated Partial Thromboplast Time 40 SECONDS (22-32) *H Prothrombin Time 12.4 SECONDS (9.0-12.0) H INR International Normalized Ratio 1.2 INR Coagulation Comments Assessment Assessment 54-year-old female with PMH of Hypothyroidism, Seizure presented to the ED in view of right upper extremity swollen pain tenderness. Patient is admitted for the evaluation management of right hand cellulitis. CT chest was reviewed which showed mass that was invading the chest wall, patient has a remote methamphetamine abuse (possible IV drug abuse). Patient underwent surgery for left upper lobe abscess draining into the chest wall on 03/20/2025. Plan Plan Empyema necessitatans Right hand cellulitis, improving Tenosynovitis, ruled out Sepsis, POA Septic shock, resolved Acute hypoxemic respiratory failure secondary to empyema Continue IV vancomycin until 04/26/2025 Elevation and moving fingers recommended per Dr. 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 Moderate MR. Currently [place] criteria not met Septic shock, resolved Most likely secondary to bacteremia, empyema necessitans and cellulitis IV fluid resuscitation placed initially, now on hold due to fluid overload Tinea capitis/cruris Terbinafine p.o. has been used as outpatient for two months per the patient Terbinafine cream topical Disposition: Continue medical treatment, SNF discharge plan with PICC line. Mary Walters MD PGY2 internal medicine resident Date of Service: Mar 25, 2025 Billing Provider: NATHAN GOLDSTEIN MD Common Visit Codes: [id number] INP/OBS CARE(HIGH) MARY HYMAN, RES Mar 25, 2025 15:23 NATHAN GOLDSTEIN MD Apr 05, 2025 08:44
[2025-03-25] MEDS: polyethylene glycol 3350 17gm powd pack PO SCH (19:46)
[2025-03-25] MEDS ORDERED: docusate sod 100mg capsule PO SCH (20:00)
[2025-03-26] VITALS (15 sets, daily range): BP systolic 99–154; BP diastolic 62–76; PULSE 52–90; RESP 13–18; TEMP 97.7–98.6; O2SAT 90–97
--- NOTE | 2025-03-26 07:26 | RADIOLOGY REPORT ---
CHEST RADIOGRAPH Indication: POST OP Technique: Single frontal view of the chest was obtained Comparison: DI CHEST,SINGLE VIEW on DOS: 03/25/25, DI CHEST,SINGLE VIEW on DOS: 03/24/25, CT CT CHEST W/ IV CONTRAST on DOS: 03/23/25 IMPRESSION: Diffuse patchy alveolar appearing airspace opacities have worsened, predominantly in the right lung. Small left pleural effusion. No pneumothorax. Left IJ catheter tip in the region of the brachiocephalic.
[2025-03-26 09:42] LABS: MEAN PLATELET VOLUME 7.3 FL (7.4-10.4); RED CELL DISTRIBUTION WIDTH 15.7 % (11.5-14.5)
[2025-03-26 10:13] LABS: CREATININE 0.92 MG/DL (0.40-0.90); TOTAL CARBON DIOXIDE 25.5 MMOL/L (24-32); eCRCL 63 ML/MIN; eGFR 64 ML/MIN
--- NOTE | 2025-03-26 14:55 | RADIOLOGY REPORT ---
CT Chest without intravenous contrast INDICATION: Worsening opacities in right lung TECHNIQUE: Multidetector spiral CT of the chest was performed from the lung apices to the upper abdomen. Axial, coronal and sagittal multiplanar reformats were performed. Radiation Dose : 1. Chest: CTDI volume is 18 mGy. Dose-length product is 585 mGy*cm The dose indicators for CT are the volume Computed Tomography (CT) Dose Index (CTDIvol) and the Dose Length Product (DLP), and are measured in units of mGy and mGy-cm, respectively. These indicators are not patient dose, but values generated from the CT scanner acquisition factors. The report includes radiation exposure data for exposures received during this examination. Comparison: CT CT CHEST W/ IV CONTRAST on DOS: 03/23/25, CT CT CHEST on DOS: 03/17/25, CT CTA CHEST PE W/ IV CONTRAST on DOS: 03/13/25 Findings: Lower neck: Normal thyroid. Lungs: Increased multifocal ground-glass airspace disease. Heart/Vascular Structures: Cardiomegaly. Lymph Nodes: No adenopathy. Pleura: Small bilateral pleural effusions, right greater than left. Musculoskeletal: No acute osseous abnormality. Soft tissues: Severe diffuse body wall edema. Nonspecific small volume subcutaneous emphysema along the left lateral chest wall may be postoperative. Post surgical changes in the anterior left upper lung. Upper abdomen: Limited portions of the upper abdomen are unremarkable. IMPRESSION: Increased multifocal ground-glass airspace disease. Differential considerations could include worsening multifocal infection and/or edema. Small bilateral pleural effusions, right greater than left. Severe diffuse body wall edema. Radiation optimization: All CT scans at this facility use at least one of these dose optimization techniques: automated exposure control mA and/or kV adjustment per patient size (includes targeted exams where dose is matched to clinical indication) or iterative reconstruction.
--- NOTE | 2025-03-26 18:45 | PROGRESS NOTE- Residence ---
Progress Note - Resident Providers to CC Resident Creating Document: MARY HYMAN RES ~ Antibiotic Timeout Antibiotic Ordered?: Yes Subjective Patient was seen and examined at the bedside. Chest CT shows worsening of the infection/edema. Bicarbonate drip has been stopped today. Patient reports improvement in pain. She has a good output through Gomez catheter. Patient has not had a bowel movement yet despite being on multiple laxatives. Objective Vital Signs Date Time Temp Pulse Resp B/P (MAP) Pulse Ox O2 Delivery O2 Flow Rate FiO2 03/26/25 16:45 81 18 Nasal Cannula 2.0 03/26/25 16:37 96 28 03/26/25 11:00 97.7 125/76 (92) Result Diagram: 03/26/25 0920 03/26/25 0920 General- patient is alert , awake, central line on the left side of the neck HEENT: Atraumatic, normocephalic, EOMI, anicteric sclera ; pink conjunctiva Neck: Trachea midline. Supple, full range of motion, no JVD Cardiac: Regular rhythm, regular rate with 2/6 systolic murmur at left lower sternal border, aortic area Respiratory: Equal breath sounds bilaterally, no tachypnea, no wheezing ,rub or rales, Chest: No accessory muscle use, tender left lateral ribcage in the anterior axillary line proximally T6-T7. Swelling of size 5 x 4 cm over the left side of chest, near left 2nd intercostal space, left sternal clavicular area which is little bit better than from yesterday. Gastrointestinal: Abdomen symmetric, non-distended, soft, non-tender, normal bowel sounds x4 quadrant, normoactive, no hepatosplenomegaly Musculoskeletal: swelling on dorsum of the right hand with the erythema and warm to touch and a region that has a proximally 6 x 6 cm, Swelling on dorsum of the right foot with no warmth or erythema Neurological: Mental status exam: alert and consciousness, orientation, memory, speech - Cranial nerve test: Cranial nerves 2-12 intact - Motor system: Nutrition, Tone 3+, Power 5/5, no involuntary movements - Sensory system: Intact - Reflex testing: Biceps, triceps and knee reflexes 2+ - Cerebellar: Normal Skin: Warm and dry Coagulation Studies Laboratory Tests Test 03/13/25 04:42 03/20/25 08:40 03/20/25 20:55 D-Dimer 2.39 MG/L FEU (0-0.50) H D-Dimer Comment Activated Partial Thromboplast Time 40 SECONDS (22-32) *H Prothrombin Time 12.4 SECONDS (9.0-12.0) H INR International Normalized Ratio 1.2 INR Coagulation Comments Assessment Assessment 54-year-old female with PMH of Hypothyroidism, Seizure presented to the ED in view of right upper extremity swollen pain tenderness. Patient is admitted for the evaluation management of right hand cellulitis. CT chest was reviewed which showed mass that was invading the chest wall, patient has a remote methamphetamine abuse (possible IV drug abuse). Patient underwent surgery for left upper lobe abscess draining into the chest wall on 03/20/2025. Plan Plan Empyema necessitatans Right hand cellulitis, improving Tenosynovitis, ruled out Sepsis, POA Septic shock, resolved Acute hypoxemic respiratory failure secondary to empyema Continue IV vancomycin until 04/26/2025 Elevation and moving fingers recommended per Dr. Romero (orthopedic) Chest tube removed on 03/23/2025 Currently on 2 L of oxygen through nasal cannula MRSA bacteremia Hematogenous spread Suspicion for MRSA metastasis to vertebral bone, ruled out Blood cultures positive on 03/13, Blood cultures on 03/15 negative, cleared which is fairly fast Leukocytosis, downtrending Possible source right hand cellulitis/IV drug abuse PICC line to be placed. Ordered for PICC line placement. 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 Moderate MR. Currently Hill criteria not met Septic shock, resolved Most likely secondary to bacteremia, empyema necessitans and cellulitis IV fluid resuscitation placed initially, now on hold due to fluid overload Tinea capitis/cruris Terbinafine p.o. has been used as outpatient for two months per the patient Terbinafine cream topical Disposition: Continue medical treatment, SNF discharge plan with PICC line. Mary Walters MD PGY2 internal medicine resident Date of Service: Mar 26, 2025 Billing Provider: NATHAN GOLDSTEIN MD Common Visit Codes: [id number] INP/OBS CARE(HIGH) MARY HMYAN, RES Mar 26, 2025 18:45 NATHAN GOLDSTEIN MD Apr 05, 2025 08:44
--- NOTE | 2025-03-26 20:34 | PROGRESS NOTE ---
Progress Note ID Providers to CC ~ Progress Note Progress Note: ct chest reviewed-findings consistent with multiple infiltrates-rec: medical managemtn ELIZABETH DRAKE MD Mar 26, 2025 20:33
[2025-03-27] VITALS (15 sets, daily range): BP systolic 115–151; BP diastolic 64–91; PULSE 85–97; RESP 12–19; TEMP 96.9–98.1; O2SAT 85–100
[2025-03-27] MEDS: magnesium hydroxide 30ml (MOM) UD suspension PO PRN (08:46)
[2025-03-27 09:28] LABS: MEAN PLATELET VOLUME 7.2 FL (7.4-10.4); RED CELL DISTRIBUTION WIDTH 16.0 % (11.5-14.5)
--- NOTE | 2025-03-27 09:45 | RADIOLOGY REPORT ---
CHEST RADIOGRAPH Indication: Shortness of breath, monitor progress Technique: Single frontal view of the chest was obtained Comparison: CT CT CHEST on DOS: 03/26/25, DI CHEST,SINGLE VIEW on DOS: 03/26/25, DI CHEST,SINGLE VIEW on DOS: 03/25/25, DI CHEST,SINGLE VIEW on DOS: 03/24/25, CT CT CHEST W/ IV CONTRAST on DOS: 03/23/25, DI CHEST,SINGLE VIEW on DOS: 03/26/25 FINDINGS: Diffuse patchy alveolar appearing airspace opacities have worsened, predominantly in the right lung. Small left pleural effusion. No pneumothorax. Left IJ catheter tip in the region of the brachiocephalic. IMPRESSION: No interval change.
[2025-03-27 09:46] LABS: CREATININE 0.90 MG/DL (0.40-0.90); TOTAL CARBON DIOXIDE 22.8 MMOL/L (24-32); eCRCL 63 ML/MIN; eGFR 65 ML/MIN
--- NOTE | 2025-03-27 18:05 | PROGRESS NOTE- Residence ---
Progress Note - Resident Providers to CC Resident Creating Document: MARY HYMAN RES ~ Antibiotic Timeout Antibiotic Ordered?: Yes Subjective Patient was seen and examined at the bedside. Peer to peer review done today for placement. The patient will be likely placed at SNF to complete the course of IV antibiotics. One dose of IV Lasix administered today. Monitor urine output. Ordered for PICC line placement. Plan to remove left IJV to prevent CLABSI after placing PICC line Objective Vital Signs Date Time Temp Pulse Resp B/P (MAP) Pulse Ox O2 Delivery O2 Flow Rate FiO2 03/27/25 10:53 95 18 Nasal Cannula 5.0 03/27/25 10:44 85 32 03/27/25 10:00 98.1 136/73 (94) Result Diagram: 03/27/25 0915 03/27/25 0915 General- patient is alert , awake, central line on the left side of the neck HEENT: Atraumatic, normocephalic, EOMI, anicteric sclera ; pink conjunctiva Neck: Trachea midline. Supple, full range of motion, no JVD Cardiac: Regular rhythm, regular rate with 2/6 systolic murmur at left lower sternal border, aortic area Respiratory: Equal breath sounds bilaterally, no tachypnea, no wheezing ,rub or rales, Chest: No accessory muscle use, tender left lateral ribcage in the anterior axillary line proximally T6-T7. Swelling of size 5 x 4 cm over the left side of chest, near left 2nd intercostal space, left sternal clavicular area which is little bit better than from yesterday. Gastrointestinal: Abdomen symmetric, non-distended, soft, non-tender, normal bowel sounds x4 quadrant, normoactive, no hepatosplenomegaly Musculoskeletal: swelling on dorsum of the right hand with the erythema and warm to touch and a region that has a proximally 6 x 6 cm, Swelling on dorsum of the right foot with no warmth or erythema Neurological: Mental status exam: alert and consciousness, orientation, memory, speech - Cranial nerve test: Cranial nerves 2-12 intact - Motor system: Nutrition, Tone 3+, Power 5/5, no involuntary movements - Sensory system: Intact - Reflex testing: Biceps, triceps and knee reflexes 2+ - Cerebellar: Normal Skin: Warm and dry Coagulation Studies Laboratory Tests Test 03/13/25 04:42 03/20/25 08:40 03/20/25 20:55 D-Dimer 2.39 MG/L FEU (0-0.50) H D-Dimer Comment Activated Partial Thromboplast Time 40 SECONDS (22-32) *H Prothrombin Time 12.4 SECONDS (9.0-12.0) H INR International Normalized Ratio 1.2 INR Coagulation Comments Assessment Assessment 54-year-old female with PMH of Hypothyroidism, Seizure presented to the ED in view of right upper extremity swollen pain tenderness. Patient is admitted for the evaluation management of right hand cellulitis. CT chest was reviewed which showed mass that was invading the chest wall, patient has a remote methamphetamine abuse (possible IV drug abuse). Patient underwent surgery for left upper lobe abscess draining into the chest wall on 03/20/2025. Plan Plan Empyema necessitatans Right hand cellulitis, improving Tenosynovitis, ruled out Sepsis, POA Septic shock, resolved Acute hypoxemic respiratory failure secondary to empyema Continue IV vancomycin until 04/26/2025 Elevation and moving fingers recommended per Dr. Romero (orthopedic) Chest tube removed on 03/23/2025 Currently on 2 L of oxygen through nasal cannula MRSA bacteremia Hematogenous spread Suspicion for MRSA metastasis to vertebral bone, ruled out Blood cultures positive on 03/13, Blood cultures on 03/15 negative, cleared which is fairly fast Leukocytosis, downtrending Possible source right hand cellulitis/IV drug abuse PICC line to be placed. Ordered for PICC line placement. 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 Moderate MR. Currently [place] criteria not met Septic shock, resolved Most likely secondary to bacteremia, empyema necessitans and cellulitis IV fluid resuscitation placed initially, now on hold due to fluid overload Tinea capitis/cruris Terbinafine p.o. has been used as outpatient for two months per the patient Terbinafine cream topical Disposition: Continue medical treatment, SNF discharge plan with PICC line. Mary Walters MD PGY2 internal medicine resident Date of Service: Mar 27, 2025 Billing Provider: NATHAN GOLDSTEIN MD Common Visit Codes: [id number] INP/OBS CARE(HIGH) MARY HYMAN, RES Mar 27, 2025 18:05 NATHAN GOLDSTEIN MD Apr 05, 2025 08:44
--- NOTE | 2025-03-27 19:57 | PROGRESS NOTE ---
Progress Note ID Providers to CC ~ Progress Note Progress Note: Antibiotic Days Vanco 14 Lines [facility] 03/13 Blood- MSSA 03/15 Blood- ngtd Subjective: Patient recovered from surgery well and was seen on the floor today. There are new ground glass opacities on her CT scan though no signs of worsening infection consistent with fluid overload Objective Vitals: Afebrile, 85, 12, 115/64, 100% on 3L General: Alert, NAD CV: Regular RESP: Shallow effort; crackles ABD: Soft, nontender EXT: Anasarca NEURO: able to use her RUE though reluctant LINES: occlusively dressed Laboratory Tests 03/27/25 09:15 03/26 CT Increased multifocal ground-glass airspace disease. Differential considerations could include worsening multifocal infection and/or edema. Small bilateral pleural effusions, right greater than left. Assessment // MRSA septicemia, source is likely lungs. No vegetation on 2D echo. Cleared 03/15, fairly easily // Right upper extremity cellulitis - some residual swelling but overall improved // Left chest abscess extending to the chest wall s/p resection and I&D // Ground glass opacities on CT chest. She has no evidence of nosocomial intracellular infection but significant anasarca // Substance abuse // Homelessness // No known antibiotic allergies Plan - Continue vancomycin until 04/26 - DC IJ; ok for PICC - Recommend diuresis - Monitor O2 requirement, troughs; watch for SIRS signs - Dispo planning: SNF - Will continue to follow JEN BRASHER DO Mar 27, 2025 19:57
[2025-03-27 20:47] LABS: HIV ANTIBODY 1&2 RAPID NON-REACTIVE (Neg)
[2025-03-28] VITALS (20 sets, daily range): BP systolic 106–142; BP diastolic 56–80; PULSE 85–97; RESP 11–22; TEMP 97–98.4; O2SAT 90–98
[2025-03-28 03:47] LABS: MEAN PLATELET VOLUME 7.4 FL (7.4-10.4); RED CELL DISTRIBUTION WIDTH 15.5 % (11.5-14.5)
[2025-03-28 03:54] LABS: CREATININE 0.92 MG/DL (0.40-0.90); TOTAL CARBON DIOXIDE 25.9 MMOL/L (24-32); eCRCL 63 ML/MIN; eGFR 64 ML/MIN
--- NOTE | 2025-03-28 09:12 | RADIOLOGY REPORT ---
EXAM: DI CHEST,SINGLE VIEW Indication: Shortness of breath, monitor progress Technique: Single frontal view of the chest was obtained Comparison: DI CHEST,SINGLE VIEW on DOS: 03/27/25, CT CT CHEST on DOS: 03/26/25, DI CHEST,SINGLE VIEW on DOS: 03/26/25, DI CHEST,SINGLE VIEW on DOS: 03/25/25, DI CHEST,SINGLE VIEW on DOS: 03/24/25 FINDINGS: Lines and Tubes: None Lungs: Multifocal consolidative opacities. Small left pleural effusion. No pneumothorax. Cardiomediastinal contours: Unremarkable Bones: No acute osseous abnormality. IMPRESSION: Multifocal consolidative opacities. Small left pleural effusion.
--- NOTE | 2025-03-28 12:07 | PROGRESS NOTE ---
Progress Note ID Providers to CC ~ Progress Note Progress Note: Antibiotic Days Vanco 15 Lines [facility] 03/13 Blood- MSSA 03/15 Blood- ngtd Subjective: Patient was resting comfortably. Noted 6L O2 Objective Vitals: Afebrile, 92, 19, 128/56, 93% on 3L General: Sleeping, arousable, NAD CV: Regular RESP: Shallow effort ABD: Soft, nontender EXT: Anasarca, slight improvement LINES: occlusively dressed Laboratory Tests 03/28/25 03:23 Assessment // MRSA septicemia, source is likely lungs. No vegetation on 2D echo. Cleared 03/15, fairly easily // Right upper extremity cellulitis - some residual swelling but overall improved // Left chest abscess extending to the chest wall s/p resection and I&D // Ground glass opacities on CT chest. She has no evidence of nosocomial intracellular infection but significant anasarca so likely fluid overload // Substance abuse // Homelessness // No known antibiotic allergies Plan - Continue vancomycin until 04/26 - DC IJ; ok for PICC - Continue diuresis - Monitor O2 requirement, troughs; watch for SIRS signs - Dispo planning: SNF - Will continue to follow JEN BRASHER DO Mar 28, 2025 12:07
[2025-03-28] MEDS: ondansetron/PF 4mg/2ml inj IV PRN (15:30)
--- NOTE | 2025-03-28 18:53 | PROGRESS NOTE- Residence ---
Progress Note - Resident Providers to CC Resident Creating Document: MARY HYMAN, MARIOLA ~ Antibiotic Timeout Antibiotic Ordered?: Yes Subjective Patient was seen and examined at the bedside. Patient has good urine output. PICC line placed today. Left IJV to be removed. Awaiting test case developer input for discharge to [facility] Objective Vital Signs Date Time Temp Pulse Resp B/P (MAP) Pulse Ox O2 Delivery O2 Flow Rate FiO2 03/28/25 16:03 21 95 Nasal Cannula 3.0 03/28/25 15:58 88 03/28/25 15:53 98.4 106/75 (85) 03/28/25 15:53 36 Result Diagram: 03/28/2532203/28/25322 General- patient is alert , awake, central line on the left side of the neck HEENT: Atraumatic, normocephalic, EOMI, anicteric sclera ; pink conjunctiva Neck: Trachea midline. Supple, full range of motion, no JVD Cardiac: Regular rhythm, regular rate with 2/6 systolic murmur at left lower sternal border, aortic area Respiratory: Equal breath sounds bilaterally, no tachypnea, no wheezing ,rub or rales, Chest: No accessory muscle use, tender left lateral ribcage in the anterior axillary line proximally T6-T7. Swelling of size 5 x 4 cm over the left side of chest, near left 2nd intercostal space, left sternal clavicular area which is little bit better than from yesterday. Gastrointestinal: Abdomen symmetric, non-distended, soft, non-tender, normal bowel sounds x4 quadrant, normoactive, no hepatosplenomegaly Musculoskeletal: swelling on dorsum of the right hand with the erythema and warm to touch and a region that has a proximally 6 x 6 cm, Swelling on dorsum of the right foot with no warmth or erythema Neurological: Mental status exam: alert and consciousness, orientation, memory, speech - Cranial nerve test: Cranial nerves 2-12 intact - Motor system: Nutrition, Tone 3+, Power 5/5, no involuntary movements - Sensory system: Intact - Reflex testing: Biceps, triceps and knee reflexes 2+ - Cerebellar: Normal Skin: Warm and dry Coagulation Studies Laboratory Tests Test 03/13/25 04:42 03/20/25 08:40 03/20/25 20:55 D-Dimer 2.39 MG/L FEU (0-0.50) H D-Dimer Comment Activated Partial Thromboplast Time 40 SECONDS (22-32) *H Prothrombin Time 12.4 SECONDS (9.0-12.0) H INR International Normalized Ratio 1.2 INR Coagulation Comments Assessment Assessment 54-year-old female with PMH of Hypothyroidism, Seizure presented to the ED in view of right upper extremity swollen pain tenderness. Patient is admitted for the evaluation management of right hand cellulitis. CT chest was reviewed which showed mass that was invading the chest wall, patient has a remote methamphetamine abuse (possible IV drug abuse). Patient underwent surgery for left upper lobe abscess draining into the chest wall on 03/20/2025. Plan Plan Empyema necessitatans Right hand cellulitis, improving Tenosynovitis, ruled out Sepsis, POA Septic shock, resolved Acute hypoxemic respiratory failure secondary to empyema Continue IV vancomycin until 04/26/2025 Elevation and moving fingers recommended per Dr. Romero (orthopedic) Chest tube removed on 03/23/2025 Currently on 2 L of oxygen through nasal cannula MRSA bacteremia Hematogenous spread Suspicion for MRSA metastasis to vertebral bone, ruled out Blood cultures positive on 03/13, Blood cultures on 03/15 negative, cleared which is fairly fast Leukocytosis, downtrending Possible source right hand cellulitis/IV drug abuse PICC line placed. 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 Moderate MR. Currently [place] criteria not met Septic shock, resolved Most likely secondary to bacteremia, empyema necessitans and cellulitis IV fluid resuscitation placed initially, now on hold due to fluid overload Tinea capitis/cruris Terbinafine p.o. has been used as outpatient for two months per the patient Terbinafine cream topical Disposition: Continue medical treatment, SNF discharge plan with PICC line. Mary Walters MD PGY2 internal medicine resident Date of Service: Mar 28, 2025 Billing Provider: NATHAN GOLDSTEIN MD Common Visit Codes: [id number] INP/OBS CARE(HIGH) MARY HYMAN, RES Mar 28, 2025 18:53 NATHAN GOLDSTEIN MD Apr 05, 2025 08:45
--- NOTE | 2025-03-28 22:38 | RADIOLOGY REPORT ---
CLINICAL HISTORY: increasing oxygen requirement, SOB TECHNIQUE: Single view of the chest was obtained. COMPARISON: ANGIO LINE PLACEMENT(PICC NURSE) on DOS: 03/28/25, DI CHEST,SINGLE VIEW on DOS: 03/28/25, DI CHEST,SINGLE VIEW on DOS: 03/27/25, CT CT CHEST on DOS: 03/26/25, DI CHEST,SINGLE VIEW on DOS: 03/26/25 FINDINGS: The heart size is mildly enlarged with unchanged pulmonary vascular congestion. There is unchanged small left pleural effusion. There are unchangedextensive bilateral mid and lower lung opacities. A left PICC terminates at the right atrium. A left IJ line has been removed. IMPRESSION: Unchanged pulmonary vascular congestion and small left pleural effusion. Unchanged extensive mid and lower lung opacities bilaterally, favor pulmonary edema..
[2025-03-28 22:53] LABS: ABG BASE EXCESS -2.9 mmol/L (-2.0-3.0); ABG HCO3 23.1 mmol/L (21.0-28.0); ABG OXYGEN SATURATION 97.6 % (94.0-98.0); ABG PCO2 (T) 44.1 mmHg (32.0-45.0); ABG PH (T) 7.334 (7.350-7.450); ABG PO2 (T) 102.9 mmHg (83.0-108.0); ALLEN'S TEST Yes; FCOHb 0.7 % (0.5-1.5); FHHb 2.4 % (0.0-5.0); FIO2 60.0 mmHg/%; FLOW 10 L/min; FMetHb 0.3 % (0.0-1.5); FO2Hb 96.6 % (94.0-98.0); MODE MASK - SIMPLE; PATIENT TEMPERATURE 36.3; TOTAL HEMOGLOBIN 9.8 G/dl (12.0-16.0)
[2025-03-29] VITALS (22 sets, daily range): BP systolic 102–146; BP diastolic 58–79; PULSE 78–94; RESP 11–20; TEMP 97.6–98.4; O2SAT 92–100
[2025-03-29] MEDS: albuterol 2.5 MG/3 ML nebule NEB PRN (00:09)
[2025-03-29 02:39] LABS: MEAN PLATELET VOLUME 7.4 FL (7.4-10.4); RED CELL DISTRIBUTION WIDTH 15.2 % (11.5-14.5)
[2025-03-29 02:52] LABS: CREATININE 0.78 MG/DL (0.40-0.90); TOTAL CARBON DIOXIDE 26.3 MMOL/L (24-32); eCRCL 74 ML/MIN; eGFR 77 ML/MIN
[2025-03-29] MEDS: VANCOMYCIN LEVEL IV ONE (03:24)
--- NOTE | 2025-03-29 08:33 | RADIOLOGY REPORT ---
CHEST RADIOGRAPH Indication: Shortness of breath, monitor progress Technique: Single view of the chest was obtained. Comparison: DI CHEST,SINGLE VIEW on DOS: 03/28/25, ANGIO LINE PLACEMENT(PICC NURSE) on DOS: 03/28/25, DI CHEST,SINGLE VIEW on DOS: 03/28/25, DI CHEST,SINGLE VIEW on DOS: 03/27/25, CT CT CHEST on DOS: 03/26/25, DI CHEST,SINGLE VIEW on DOS: 03/28/25 FINDINGS: The heart size is mildly enlarged with unchanged pulmonary vascular congestion. There is unchanged small left pleural effusion. There are unchangedextensive bilateral mid and lower lung opacities. A left PICC terminates at the right atrium. A left IJ line has been removed. IMPRESSION: 1. Unchanged pulmonary vascular congestion and small left pleural effusion.
[2025-03-29] MEDS ORDERED: potassium Cl 40MEQ/1/2NS 520ml 520 ML IV PRN (08:40)
[2025-03-29] MEDS ORDERED: potassium Cl 20 mEq SR tablet PO PRN (08:40)
[2025-03-29] MEDS ORDERED: magnesium sulf-water 4G/100mL 100 ML IV PRN (08:40)
[2025-03-29] MEDS ORDERED: magnesium Cl slow-release 64mg tablet PO PRN (08:40)
[2025-03-29] MEDS ORDERED: magnesium sulf-water 2g/50mL 50 ML IV PRN (08:40)
[2025-03-29] MEDS: potassium Cl 20 mEq SR tablet PO PRN (09:00)
[2025-03-29] MEDS: VANCOMYCIN 750MG IV in NS 250 ML IV SCH (14:18)
--- NOTE | 2025-03-29 18:20 | PROGRESS NOTE- Residence ---
Progress Note - Resident Providers to CC Resident Creating Document: MARY HYMAN, MARIOLA ~ Antibiotic Timeout Antibiotic Ordered?: Yes Subjective Patient was seen and examined at the bedside. Patient became drowsy after receiving narcotics and lacosamide. Lacosamide changed to Keppra and narcotics were discontinued. Attempts to wean off oxygen were unsuccessful. Awaiting placement to rehab. Objective Vital Signs Date Time Temp Pulse Resp B/P (MAP) Pulse Ox O2 Delivery O2 Flow Rate FiO2 03/29/25 15:55 88 20 Nasal Cannula 5.0 03/29/25 15:46 95 N/A 03/29/25 11:00 98.4 102/58 (73) Result Diagram: 03/29/2522303/29/25223 General- patient is alert , awake, PICC line in the left arm currently on 5 L of oxygen through nasal cannula HEENT: Atraumatic, normocephalic, EOMI, anicteric sclera ; pink conjunctiva Neck: Trachea midline. Supple, full range of motion, no JVD Cardiac: Regular rhythm, regular rate with 2/6 systolic murmur at left lower sternal border, aortic area Respiratory: Decreased breath sounds bilaterally, crepitations heard in lung ( right greater than left), no tachypnea, no wheezing ,rub or rales, Chest: No accessory muscle use, tender left lateral ribcage in the anterior axillary line proximally T6-T7. Swelling of size 5 x 4 cm over the left side of chest, near left 2nd intercostal space, left sternal clavicular area which is little bit better than from yesterday. Gastrointestinal: Abdomen symmetric, non-distended, soft, non-tender, normal bowel sounds x4 quadrant, normoactive, no hepatosplenomegaly Musculoskeletal: swelling on dorsum of the right hand with the erythema and warm to touch and a region that has a proximally 6 x 6 cm, Swelling on dorsum of the right foot with no warmth or erythema. Surgical site clean. Neurological: Mental status exam: alert and consciousness, orientation, memory, speech - Cranial nerve test: Cranial nerves 2-12 intact - Motor system: Nutrition, Tone 3+, Power 5/5, no involuntary movements - Sensory system: Intact - Reflex testing: Biceps, triceps and knee reflexes 2+ - Cerebellar: Normal Skin: Warm and dry Coagulation Studies Laboratory Tests Test 03/13/25 04:42 03/20/25 08:40 03/20/25 20:55 D-Dimer 2.39 MG/L FEU (0-0.50) H D-Dimer Comment Activated Partial Thromboplast Time 40 SECONDS (22-32) *H Prothrombin Time 12.4 SECONDS (9.0-12.0) H INR International Normalized Ratio 1.2 INR Coagulation Comments Assessment Assessment 54-year-old female with PMH of Hypothyroidism, Seizure presented to the ED in view of right upper extremity swollen pain tenderness. Patient is admitted for the evaluation management of right hand cellulitis. CT chest was reviewed which showed mass that was invading the chest wall, patient has a remote methamphetamine abuse (possible IV drug abuse). Patient underwent surgery for left upper lobe abscess draining into the chest wall on 03/20/2025. Plan Plan Empyema necessitatans Right hand cellulitis, improving Tenosynovitis, ruled out Sepsis, POA Septic shock, resolved Acute hypoxemic respiratory failure secondary to empyema, present on admission Continue IV vancomycin until 04/26/2025 Elevation and moving fingers recommended per Dr. Romero (orthopedic) Chest tube removed on 03/23/2025 Currently on 5 L of oxygen through nasal cannula MRSA bacteremia Hematogenous spread Suspicion for MRSA metastasis to vertebral bone, ruled out Blood cultures positive on 03/13, Blood cultures on 03/15 negative, cleared which is fairly fast Leukocytosis, downtrending Possible source is empyema other sources include right hand cellulitis secondary to IV drug abuse PICC line placed. 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 Dr. Galvan is following the case Endocarditis, ruled out Echo: Normal MV annulus with thickened leaflets without stenosis. Moderate MR. Currently [place] criteria not met Septic shock, resolved Most likely secondary to bacteremia, empyema necessitans and cellulitis IV fluid resuscitation placed initially, now on hold due to fluid overload Tinea capitis/cruris Terbinafine p.o. has been used as outpatient for two months per the patient Terbinafine cream topical Disposition: Continue medical treatment, SNF discharge plan with PICC line. Mary Walters MD PGY2 internal medicine resident Date of Service: Mar 29, 2025 Billing Provider: NATHAN GOLDSTEIN MD Common Visit Codes: [id number] INP/OBS CARE(HIGH) MARY HYMAN, RES Mar 29, 2025 18:20 NATHAN GOLDSTEIN MD Apr 05, 2025 08:45
[2025-03-29] MEDS: K and/or MAG REPLACEMENT MC SCH (20:00)
[2025-03-29] MEDS: levetiracetam inj 750 MG in normal saline 100ml IV soln 100 ML IV SCH (20:00)
[2025-03-30] VITALS (17 sets, daily range): BP systolic 121–161; BP diastolic 69–90; PULSE 78–99; RESP 14–20; TEMP 98–98.6; O2SAT 85–100
[2025-03-30 05:34] LABS: MEAN PLATELET VOLUME 7.5 FL (7.4-10.4); RED CELL DISTRIBUTION WIDTH 15.6 % (11.5-14.5)
[2025-03-30 05:40] LABS: CREATININE 0.77 MG/DL (0.40-0.90); TOTAL CARBON DIOXIDE 27.9 MMOL/L (24-32); eCRCL 75 ML/MIN; eGFR 78 ML/MIN
--- NOTE | 2025-03-30 11:55 | RADIOLOGY REPORT ---
CHEST RADIOGRAPH Indication: sob Technique: Single view of the chest was obtained. Comparison: DI CHEST,SINGLE VIEW on DOS: 03/29/25, DI CHEST,SINGLE VIEW on DOS: 03/28/25, ANGIO LINE PLACEMENT(PICC NURSE) on DOS: 03/28/25, DI CHEST,SINGLE VIEW on DOS: 03/28/25, DI CHEST,SINGLE VIEW on DOS: 03/27/25, DI CHEST,SINGLE VIEW on DOS: 03/29/25 FINDINGS: The heart size is mildly enlarged with unchanged pulmonary vascular congestion. There is unchanged small left pleural effusion. There are unchangedextensive bilateral mid and lower lung opacities. A left PICC terminates at the right atrium. A left IJ line has been removed. IMPRESSION: 1. Unchanged pulmonary vascular congestion and small left pleural effusion.
[2025-03-30] MEDS: lactulose 20gm/30ml cup PO SCH (13:33)
[2025-03-30] MEDS: methylPREDNISolone sod succ/PF 40mg inj. IV SCH (13:33)
--- NOTE | 2025-03-30 15:13 | PROGRESS NOTE ---
Progress Note ID Providers to CC ~ Progress Note Progress Note: Antibiotic Days Vanco 17 Lines PICC Micro 03/13 Blood- MSSA 03/15 Blood- negative Subjective: Patient was up to 8L today though some of her peripheral swelling had lessened. No fever Objective Vitals: Afebrile, 85, 19, 133/69, 99% on 8L General: Sleeping, arousable, NAD CV: Regular RESP: Shallow effort ABD: Soft, nontender EXT: Anasarca, some improvement LINES: IJ out; PICC now Laboratory Tests 03/30/25 05:10 Assessment // MRSA septicemia, source is likely lungs. No vegetation on 2D echo. Cleared 03/15, fairly easily // Right upper extremity cellulitis - some residual swelling but overall improved // Left chest abscess extending to the chest wall s/p resection and I&D // Ground glass opacities on CT chest, likely due to fluid overload // Substance abuse // Homelessness // No known antibiotic allergies Plan - Continue vancomycin until 04/26 - CBC, CMP, Vanc levels at least weekly - Noted the addition of steroids? - Dispo planning: SNF once O2 improves - Will continue to follow JEN BRASHER DO Mar 30, 2025 15:13
--- NOTE | 2025-03-30 18:37 | PROGRESS NOTE- Residence ---
Progress Note - Resident Providers to CC Resident Creating Document: MARY HYMAN, RES ~ Antibiotic Timeout Antibiotic Ordered?: Yes Subjective Patient was seen and examined at the bedside. Sitter is at the bedside. Patient level of consciousness has improved from yesterday. Patient had an elevated ammonia level and was started on lactulose. Oxygen requirements are improving. Started on steroids today. Objective Vital Signs Date Time Temp Pulse Resp B/P (MAP) Pulse Ox O2 Delivery O2 Flow Rate FiO2 03/30/25 12:26 92 03/30/25 11:24 20 95 6.0 03/30/25 11:24 Nasal Cannula 03/30/25 11:11 98.6 133/69 (90) 03/30/25 11:05 52 Result Diagram: 03/30/25 0510 03/30/25 0510 General- patient is alert , awake, PICC line in the left arm currently on 5 L of oxygen through nasal cannula HEENT: Atraumatic, normocephalic, EOMI, anicteric sclera ; pink conjunctiva Neck: Trachea midline. Supple, full range of motion, no JVD Cardiac: Regular rhythm, regular rate with 2/6 systolic murmur at left lower sternal border, aortic area Respiratory: Decreased breath sounds bilaterally, crepitations heard in lung ( right greater than left), no tachypnea, no wheezing ,rub or rales, Chest: No accessory muscle use, tender left lateral ribcage in the anterior axillary line proximally T6-T7. Swelling of size 5 x 4 cm over the left side of chest, near left 2nd intercostal space, left sternal clavicular area which is little bit better than from yesterday. Gastrointestinal: Abdomen symmetric, non-distended, soft, non-tender, normal bowel sounds x4 quadrant, normoactive, no hepatosplenomegaly Musculoskeletal: swelling on dorsum of the right hand with the erythema and warm to touch and a region that has a proximally 6 x 6 cm, Swelling on dorsum of the right foot with no warmth or erythema. Surgical site clean. Neurological: Mental status exam: alert and consciousness, orientation, memory, speech - Cranial nerve test: Cranial nerves 2-12 intact - Motor system: Nutrition, Tone 3+, Power 5/5, no involuntary movements - Sensory system: Intact - Reflex testing: Biceps, triceps and knee reflexes 2+ - Cerebellar: Normal Skin: Warm and dry Coagulation Studies Laboratory Tests Test 03/13/25 04:42 03/20/25 08:40 03/20/25 20:55 D-Dimer 2.39 MG/L FEU (0-0.50) H D-Dimer Comment Activated Partial Thromboplast Time 40 SECONDS (22-32) *H Prothrombin Time 12.4 SECONDS (9.0-12.0) H INR International Normalized Ratio 1.2 INR Coagulation Comments Assessment Assessment 54-year-old female with PMH of Hypothyroidism, Seizure presented to the ED in view of right upper extremity swollen pain tenderness. Patient is admitted for the evaluation management of right hand cellulitis. CT chest was reviewed which showed mass that was invading the chest wall, patient has a remote methamphetamine abuse (possible IV drug abuse). Patient underwent surgery for left upper lobe abscess draining into the chest wall on 03/20/2025. Plan Plan Empyema necessitans Right hand cellulitis, improving Tenosynovitis, ruled out Sepsis, POA Septic shock, resolved Acute hypoxemic respiratory failure secondary to empyema, present on admission Continue IV vancomycin until 04/26/2025 Elevation and moving fingers recommended per Dr. Romero (orthopedic) Chest tube removed on 03/23/2025 Currently on 5 L of oxygen through nasal cannula Started on Solu-Medrol 60 mg q.6 hours on 03/30/2025 MRSA bacteremia Hematogenous spread Suspicion for MRSA metastasis to vertebral bone, ruled out Blood cultures positive on 03/13, Blood cultures on 03/15 negative, cleared which is fairly fast Leukocytosis, downtrending Possible source is empyema other sources include right hand cellulitis secondary to IV drug abuse PICC line placed. 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 Dr. Galvan is following the case Endocarditis, ruled out Echo: Normal MV annulus with thickened leaflets without stenosis. Moderate MR. Currently Mathe[place] criteria not met Septic shock, resolved Most likely secondary to bacteremia, empyema necessitans and cellulitis IV fluid resuscitation placed initially, now on hold due to fluid overload Tinea capitis/cruris Terbinafine p.o. has been used as outpatient for two months per the patient Terbinafine cream topical Disposition: Continue medical treatment, SNF discharge plan with PICC line. Mary Walters MD PGY2 internal medicine resident Date of Service: Mar 30, 2025 Billing Provider: NATHAN GOLDSTEIN MD Common Visit Codes: [id number] INP/OBS CARE(HIGH) MARY HYMAN, RES Mar 30, 2025 18:37 NATHAN GOLDSTEIN MD Apr 05, 2025 08:45
[2025-03-31] VITALS (14 sets, daily range): BP systolic 110–138; BP diastolic 61–73; PULSE 71–88; RESP 14–18; TEMP 97.3–98.5; O2SAT 90–97
[2025-03-31] MEDS: VANCOMYCIN LEVEL IV ONE (03:27)
--- NOTE | 2025-03-31 07:02 | RADIOLOGY REPORT ---
CHEST RADIOGRAPH Indication: sob Technique: Single frontal view of the chest was obtained COMPARISON: DI CHEST,SINGLE VIEW on DOS: 03/30/25, DI CHEST,SINGLE VIEW on DOS: 03/29/25, DI CHEST,SINGLE VIEW on DOS: 03/28/25, ANGIO LINE PLACEMENT(PICC NURSE) on DOS: 03/28/25, DI CHEST,SINGLE VIEW on DOS: 03/28/25 FINDINGS: Lines and Tubes: Left peripherally inserted central catheter unchanged. Lungs: Stable appearing diffuse multifocal bilateral pulmonary airspace disease and left pleural effusion. No pneumothorax. Cardiomediastinal contours: Unremarkable Bones: Unremarkable IMPRESSION: 1. Stable appearing diffuse multifocal bilateral pulmonary airspace disease and left pleural effusion. 2. Left PICC.
--- NOTE | 2025-03-31 10:50 | PROGRESS NOTE ---
Progress Note Dictate Providers to CC ~ Subjective Subjective: Nancy seems to be doing okay today. She is breathing a little bit better. No fever. Objective Objective: Middle-aged female currently sitting up in bed in no acute distress on 6 L Left chest bandaged Lungs with scattered crackles Heart regular rate and rhythm Abdomen is soft and nontender Left upper extremity PICC Bilateral lower extremity edema Lab Results: 03/30/25 0510 03/30/25 05 Radiology comments: Chest x-ray with diffuse bilateral opacities and persistent blunting of left costophrenic angle Problem\Assessment\Plan Additional Plan 1. MRSA sepsis - blood cultures cleared 03/15 2. Right upper extremity cellulitis - improved 3. Left chest wall infection - not entirely clear how this originated, but likely focal empyema with local advancement to anterior chest wall s/p wedge resection ADONIS abscess with drainage/debridement chest wall 03/20 4. Acute respiratory failure, most likely due to volume overload Continue vancomycin Increase diuretic frequency Decrease steroids Wean oxygen as tolerated HAILE MOSQUEDA MD Mar 31, 2025 10:50
--- NOTE | 2025-03-31 15:00 | PROGRESS NOTE- Residence ---
Progress Note - Resident Providers to CC Resident Creating Document: MARY HYMAN, MARIOLA ~ Antibiotic Timeout Antibiotic Ordered?: Yes Subjective Patient was seen and examined at the bedside. Sitter is at the bedside. Patient is diuresing very well with Lasix yesterday had about 3.2 L output. Increase Lasix dose to 40 mg b.i.d. today and tapering the steroids slowly to Solu-Medrol 40 mg b.i.d. ammonia levels are normalized and patient had three bowel movements yesterday. Patient was accepted at [facility]. Anticipated discharge next week. Objective Vital Signs Date Time Temp Pulse Resp B/P (MAP) Pulse Ox O2 Delivery O2 Flow Rate FiO2 03/31/25 10:57 84 16 Nasal Cannula 6.0 03/31/25 10:45 94 48 03/31/25 10:00 98.1 128/69 (88) Result Diagram: 03/30/25 0510 03/30/25 0510 General- patient is alert , awake, PICC line in the left arm currently on 5 L of oxygen through nasal cannula HEENT: Atraumatic, normocephalic, EOMI, anicteric sclera ; pink conjunctiva Neck: Trachea midline. Supple, full range of motion, no JVD Cardiac: Regular rhythm, regular rate with 2/6 systolic murmur at left lower sternal border, aortic area Respiratory: Decreased breath sounds bilaterally, crepitations heard in lung ( right greater than left), no tachypnea, no wheezing ,rub or rales, Chest: No accessory muscle use, tender left lateral ribcage in the anterior axillary line proximally T6-T7. Swelling of size 5 x 4 cm over the left side of chest, near left 2nd intercostal space, left sternal clavicular area which is little bit better than from yesterday. Gastrointestinal: Abdomen symmetric, non-distended, soft, non-tender, normal bowel sounds x4 quadrant, normoactive, no hepatosplenomegaly Musculoskeletal: swelling on dorsum of the right hand with the erythema and warm to touch and a region that has a proximally 6 x 6 cm, Swelling on dorsum of the right foot with no warmth or erythema. Surgical site clean. Neurological: Mental status exam: alert and consciousness, orientation, memory, speech - Cranial nerve test: Cranial nerves 2-12 intact - Motor system: Nutrition, Tone 3+, Power 5/5, no involuntary movements - Sensory system: Intact - Reflex testing: Biceps, triceps and knee reflexes 2+ - Cerebellar: Normal Skin: Warm and dry Coagulation Studies Laboratory Tests Test 03/13/25 04:42 03/20/25 08:40 03/20/25 20:55 D-Dimer 2.39 MG/L FEU (0-0.50) H D-Dimer Comment Activated Partial Thromboplast Time 40 SECONDS (22-32) *H Prothrombin Time 12.4 SECONDS (9.0-12.0) H INR International Normalized Ratio 1.2 INR Coagulation Comments Assessment Assessment 54-year-old female with PMH of Hypothyroidism, Seizure presented to the ED in view of right upper extremity swollen pain tenderness. Patient is admitted for the evaluation management of right hand cellulitis. CT chest was reviewed which showed mass that was invading the chest wall, patient has a remote methamphetamine abuse (possible IV drug abuse). Patient underwent surgery for left upper lobe abscess draining into the chest wall on 03/20/2025. Plan Plan Empyema necessitans Right hand cellulitis, improving Tenosynovitis, ruled out Sepsis, POA Septic shock, resolved Acute hypoxemic respiratory failure secondary to empyema, present on admission Continue IV vancomycin until 04/26/2025 Elevation and moving fingers recommended per Dr. Romero (orthopedic) Chest tube removed on 03/23/2025 Currently on 5 L of oxygen through nasal cannula Started on Solu-Medrol 60 mg q.6 hours on 03/30/2025, tapering to Solu-Medrol 40 mg q.12h. Repeat chest x-ray showing improvement MRSA bacteremia Hematogenous spread Suspicion for MRSA metastasis to vertebral bone, ruled out Blood cultures positive on 03/13, Blood cultures on 03/15 negative, cleared which is fairly fast Leukocytosis, downtrending Possible source is empyema other sources include right hand cellulitis secondary to IV drug abuse PICC line placed. 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 Dr. Galvan is following the case Endocarditis, ruled out Echo: Normal MV annulus with thickened leaflets without stenosis. Moderate MR. Currently [place] criteria not met Septic shock, resolved Most likely secondary to bacteremia, empyema necessitans and cellulitis IV fluid resuscitation placed initially, now on hold due to fluid overload Tinea capitis/cruris Terbinafine p.o. has been used as outpatient for two months per the patient Terbinafine cream topical Disposition: Continue medical treatment, SNF discharge plan to [facility] with PICC line likely next week. Mary Walters MD PGY2 internal medicine resident Date of Service: Mar 31, 2025 Billing Provider: NATHAN GOLDSTEIN MD Common Visit Codes: [id number] INP/OBS CARE(HIGH) MARY HYMAN, RES Mar 31, 2025 15:00 NATHAN GOLDSTEIN MD Apr 05, 2025 08:45
[2025-03-31] MEDS ORDERED: methylPREDNISolone sod succ/PF 40mg inj. IV SCH (20:00)
[2025-03-31] MEDS: methylPREDNISolone sod succ/PF 40mg inj. IV SCH (20:56)
[2025-04-01] VITALS (16 sets, daily range): BP systolic 110–134; BP diastolic 56–83; PULSE 78–87; RESP 12–18; TEMP 97–97.9; O2SAT 90–98
--- NOTE | 2025-04-01 08:15 | RADIOLOGY REPORT ---
CHEST RADIOGRAPH Indication: sob Technique: Single frontal view of the chest was obtained COMPARISON: DI CHEST,SINGLE VIEW on DOS: 03/31/25, DI CHEST,SINGLE VIEW on DOS: 03/30/25, DI CHEST,SINGLE VIEW on DOS: 03/29/25, DI CHEST,SINGLE VIEW on DOS: 03/28/25, ANGIO LINE PLACEMENT(PICC NURSE) on DOS: 03/28/25 FINDINGS: Lines and Tubes: Left PICC in satisfactory position Lungs: Multifocal airspace disease Pleura: No effusion. No pneumothorax. Cardiomediastinal contours: Unremarkable Bones: Unremarkable IMPRESSION: No significant interval change
[2025-04-01 08:46] LABS: CREATININE 1.02 MG/DL (0.40-0.90); TOTAL CARBON DIOXIDE 26.3 MMOL/L (24-32); eCRCL 57 ML/MIN; eGFR 56 ML/MIN
[2025-04-01 09:02] LABS: MEAN PLATELET VOLUME 7.4 FL (7.4-10.4); RED CELL DISTRIBUTION WIDTH 15.3 % (11.5-14.5)
--- NOTE | 2025-04-01 18:19 | PROGRESS NOTE- Residence ---
Progress Note - Resident Providers to CC Resident Creating Document: WILFRED LEDEZMA RES ~ Antibiotic Timeout Antibiotic Ordered?: Yes Subjective Patient was seen and examined at the bedside. Sitter is at the bedside, Patient denies any acute symptoms other than swelling in her upper and lower extremity, . Patient is diuresing very well with Lasix IV 40 mg b.i.d. . and tapering the steroids slowly to [id number]-[id number] ,is currently on IV 40 mg b.i.d. Solu-Medrol, patient is alert, awake and well-oriented hence do need any sitter. Patient is currently on 4 L oxygen Objective Vital Signs Date Time Temp Pulse Resp B/P (MAP) Pulse Ox O2 Delivery O2 Flow Rate FiO2 04/01/25 15:37 85 17 Nasal Cannula 4.0 04/01/25 15:25 95 36 04/01/25 10:00 97.9 134/80 (98) Result Diagram: 04/01/25 0852 04/01/25 0021 General- patient is alert , awake, oriented x4 HEENT: Atraumatic, normocephalic, EOMI, anicteric sclera ; pink conjunctiva Neck: Trachea midline. Supple, full range of motion, no JVD Cardiac: Regular rhythm, regular rate with 2/6 systolic ejection murmur at left lower sternal border Respiratory: Equal breath sounds bilaterally, no tachypnea, no wheezing ,rub or rales, Chest: No accessory muscle use, tender left lateral ribcage in the anterior axillary line proximally T6-T7 Gastrointestinal: Abdomen symmetric, non-distended, soft, non-tender, normal bowel sounds x4 quadrant, normoactive, no hepatosplenomegaly Musculoskeletal: swelling on dorsum of the right hand with the erythema and warm to touch and a region that has a proximally 6 x 6 cm, +2 pitting edema on dorsum of the right foot with no warmth or erythema Neurological: Mental status exam: alert and consciousness, orientation, memory, speech - Cranial nerve test: Cranial nerves 2-12 intact - Motor system: Nutrition, Tone 3+, Power 5/5, no involuntary movements - Sensory system: Intact - Reflex testing: Biceps, triceps and knee reflexes 2+ - Cerebellar: Normal Skin: Warm and dry Coagulation Studies Laboratory Tests Test 03/13/25 04:42 03/20/25 08:40 03/20/25 20:55 D-Dimer 2.39 MG/L FEU (0-0.50) H D-Dimer Comment Activated Partial Thromboplast Time 40 SECONDS (22-32) *H Prothrombin Time 12.4 SECONDS (9.0-12.0) H INR International Normalized Ratio 1.2 INR Coagulation Comments Advance Care Planning Advanced Care plannin - 30 Minutes Assessment Assessment 54-year-old female with PMH of Hypothyroidism, Seizure presented to the ED in view of right upper extremity swollen pain tenderness. Patient is admitted for the evaluation management of right hand cellulitis. CT chest was reviewed which showed mass that was invading the chest wall, patient has a remote methamphetamine abuse (possible IV drug abuse). Patient underwent surgery for left upper lobe abscess draining into the chest wall on 03/20/2025. Plan Plan Empyema necessitans Right hand cellulitis, improving Tenosynovitis, ruled out Sepsis, POA Septic shock, resolved Acute hypoxemic respiratory failure secondary to empyema, present on admission Continue IV vancomycin until 04/26/2025 Elevation and moving fingers recommended per Dr. Romero (orthopedic) Chest tube removed on 03/23/2025 Repeat chest x-ray showing improvement Currently on 4 L of oxygen through nasal cannula, Started on Solu-Medrol 60 mg q.6 hours on 03/30/2025, tapered to Solu-Medrol 40 mg q.12h on 03/31/2025, tapering to Solu-Medrol 40 mg Q 24 hours MRSA bacteremia Hematogenous spread Suspicion for MRSA metastasis to vertebral bone, ruled out Blood cultures positive on 03/13, Blood cultures on 03/15 negative, cleared which is fairly fast Leukocytosis, downtrending Possible source is empyema other sources include right hand cellulitis secondary to IV drug abuse PICC line placed. 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 Dr. Galvan is following the case Endocarditis, ruled out Echo: Normal MV annulus with thickened leaflets without stenosis. Moderate MR. Currently [place] criteria not met Septic shock, resolved Most likely secondary to bacteremia, empyema necessitans and cellulitis IV fluid resuscitation placed initially, now on hold due to fluid overload Tinea capitis/cruris Terbinafine p.o. has been used as outpatient for two months per the patient Terbinafine cream topical Disposition: Continue medical treatment, PT recommended rehab, plan to discharge with PICC line to [facility]. Wilfred Ledezma PGY1-Internal Medicine Resident Date of Service: Apr 01, 2025 Billing Provider: PAMELA KAPLAN DO Common Visit Codes: [id number] INP/OBS CARE(HIGH) WILFRED LEDEZMA, RES Apr 01, 2025 18:19 PAMELA KAPLAN DO Apr 01, 2025 18:56
[2025-04-02] VITALS (15 sets, daily range): BP systolic 118–136; BP diastolic 68–86; PULSE 82–93; RESP 14–20; TEMP 97.7–98.4; O2SAT 91–99
[2025-04-02] MEDS: VANCOMYCIN LEVEL IV ONE (02:37)
[2025-04-02 08:37] LABS: MEAN PLATELET VOLUME 7.1 FL (7.4-10.4); RED CELL DISTRIBUTION WIDTH 15.2 % (11.5-14.5)
[2025-04-02 08:53] LABS: CREATININE 1.01 MG/DL (0.40-0.90); TOTAL CARBON DIOXIDE 31.3 MMOL/L (24-32); eCRCL 57 ML/MIN; eGFR 57 ML/MIN
[2025-04-02 09:06] LABS: BANDS% (MANUAL) 1.0 % (0-10); EOSINOPHILS % (MANUAL) 8.0 % (0-6); LYMPHOCYTES % (MANUAL) 11.0 % (21-51); METAMYLEOCYTES% (MANUAL) 1.0 % (0-0); MONOCYTES % (MANUAL) 4.0 % (2-12); NEUTROPHILS % (MANUAL) 75.0 % (42-75); PLATELET ESTIMATE NORMAL
[2025-04-02] MEDS: methylPREDNISolone sod succ/PF 40mg inj. IV SCH (09:07)
[2025-04-02] MEDS ORDERED: magnesium sulf-water 2g/50mL 50 ML IV PRN (09:35)
[2025-04-02] MEDS ORDERED: magnesium sulf-water 4G/100mL 100 ML IV PRN (09:35)
[2025-04-02] MEDS ORDERED: potassium Cl 20 mEq SR tablet PO PRN (09:35)
[2025-04-02] MEDS ORDERED: magnesium Cl slow-release 64mg tablet PO PRN (09:35)
[2025-04-02] MEDS ORDERED: potassium Cl 40MEQ/1/2NS 520ml 520 ML IV PRN (09:35)
[2025-04-02] MEDS: potassium Cl 20 mEq SR tablet PO PRN (09:53)
[2025-04-02] MEDS ORDERED: lactulose 20gm/30ml cup PO SCH (12:30)
[2025-04-02] MEDS: vancomycin inj 500 MG in normal saline 100ml IV soln 100 ML IV SCH (16:03)
--- NOTE | 2025-04-02 17:23 | PROGRESS NOTE- Residence ---
Progress Note - Resident Providers to CC Resident Creating Document: CARLO LEDEZMA RES ~ Antibiotic Timeout Antibiotic Ordered?: Yes Subjective Patient was seen and examined at the bedside. , Patient denies any acute symptoms, Patient is diuresing very well with Lasix IV 40 mg b.i.d. . and tapering the steroids slowly to Qjiz-Ml-rfqzruy ,is currently on IV 40 mg Q 24 HSolu-Medrol, patient is alert, awake and well-oriented . Patient is currently on 4 L oxygen Objective Vital Signs Date Time Temp Pulse Resp B/P (MAP) Pulse Ox O2 Delivery O2 Flow Rate FiO2 04/02/25 16:18 Nasal Cannula 3.0 04/02/25 15:50 88 17 04/02/25 15:42 96 36 04/02/25 10:00 97.9 134/83 (100) Result Diagram: 04/02/25 0758 04/02/25 0758 General- patient is alert , awake, oriented x4 HEENT: Atraumatic, normocephalic, EOMI, anicteric sclera ; pink conjunctiva Neck: Trachea midline. Supple, full range of motion, no JVD Cardiac: Regular rhythm, regular rate with 2/6 systolic ejection murmur at left lower sternal border Respiratory: Equal breath sounds bilaterally, no tachypnea, no wheezing ,rub or rales, Chest: No accessory muscle use, tender left lateral ribcage in the anterior axillary line proximally T6-T7 Gastrointestinal: Abdomen symmetric, non-distended, soft, non-tender, normal bowel sounds x4 quadrant, normoactive, no hepatosplenomegaly Musculoskeletal: swelling on dorsum of the right hand with the erythema and warm to touch and a region that has a proximally 6 x 6 cm, +2 pitting edema on dorsum of the right foot with no warmth or erythema Neurological: Mental status exam: alert and consciousness, orientation, memory, speech - Cranial nerve test: Cranial nerves 2-12 intact - Motor system: Nutrition, Tone 3+, Power 5/5, no involuntary movements - Sensory system: Intact - Reflex testing: Biceps, triceps and knee reflexes 2+ - Cerebellar: Normal Skin: Warm and dry Coagulation Studies Laboratory Tests Test 03/13/25 04:42 03/20/25 08:40 03/20/25 20:55 D-Dimer 2.39 MG/L FEU (0-0.50) H D-Dimer Comment Activated Partial Thromboplast Time 40 SECONDS (22-32) *H Prothrombin Time 12.4 SECONDS (9.0-12.0) H INR International Normalized Ratio 1.2 INR Coagulation Comments Advance Care Planning Advanced Care plannin - 30 Minutes Assessment Assessment 54-year-old female with PMH of Hypothyroidism, Seizure presented to the ED in view of right upper extremity swollen pain tenderness. Patient is admitted for the evaluation management of right hand cellulitis. CT chest was reviewed which showed mass that was invading the chest wall, patient has a remote methamphetamine abuse (possible IV drug abuse). Patient underwent surgery for left upper lobe abscess draining into the chest wall on 03/20/2025. Plan Plan Empyema necessitans Right hand cellulitis, improving Tenosynovitis, ruled out Sepsis, POA Septic shock, resolved Acute hypoxemic respiratory failure secondary to empyema, present on admission Continue IV vancomycin until 04/26/[address] Edwige Barlow DO Infectious Disease Elevation and moving fingers recommended per Dr. Romero (orthopedic) Chest tube removed on 03/23/2025 Repeat chest x-ray showing improvement Currently on 4 L of oxygen through nasal cannula, Started on Solu-Medrol 60 mg q.6 hours on 03/30/2025, tapered to Solu-Medrol 40 mg q.12h on 03/31/2025, tapering to Solu-Medrol 40 mg Q 24 hours for 2 more days MRSA bacteremia Hematogenous spread Suspicion for MRSA metastasis to vertebral bone, ruled out Blood cultures positive on 03/13, Blood cultures on 03/15 negative, cleared which is fairly fast Leukocytosis, downtrending Possible source is empyema other sources include right hand cellulitis secondary to IV drug abuse PICC line placed. 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 Dr. Galvan is following the case Hypokalemia Patient today has potassium level of 2.8, started on hyperkalemia/hypokalemia protocol Endocarditis, ruled out Echo: Normal MV annulus with thickened leaflets without stenosis. Moderate MR. Currently [place] criteria not met Septic shock, resolved Most likely secondary to bacteremia, empyema necessitans and cellulitis IV fluid resuscitation placed initially, now on hold due to fluid overload Tinea capitis/cruris Terbinafine p.o. has been used as outpatient for two months per the patient Terbinafine cream topical Disposition: Continue medical treatment, PT recommended rehab, plan to discharge with PICC line to [facility]. Carlo Ledezma PGY1-Internal Medicine Resident Date of Service: Apr 02, 2025 Billing Provider: PAMELA KAPLAN DO Common Visit Codes: [id number] INP/OBS CARE(HIGH) CARLO LEDEZMA, RES Apr 02, 2025 17:23 PAMELA KAPLAN DO Apr 02, 2025 18:13
[2025-04-03] VITALS (15 sets, daily range): BP systolic 119–141; BP diastolic 79–84; PULSE 80–96; RESP 16–21; TEMP 97.6–98.3; O2SAT 88–99
[2025-04-03 11:23] LABS: MEAN PLATELET VOLUME 7.3 FL (7.4-10.4); RED CELL DISTRIBUTION WIDTH 15.5 % (11.5-14.5)
[2025-04-03 11:48] LABS: CREATININE 1.04 MG/DL (0.40-0.90); TOTAL CARBON DIOXIDE 37.0 MMOL/L (24-32); eCRCL 56 ML/MIN; eGFR 55 ML/MIN
--- NOTE | 2025-04-03 16:22 | PROGRESS NOTE- Residence ---
Progress Note - Resident Providers to CC Resident Creating Document: EARNESTINE NG RES ~ Antibiotic Timeout Antibiotic Ordered?: Yes Subjective Patient was seen and examined at the bedside. No acute overnight symptoms. Her oxygen requirement was around 6 L overnight, which trended down 4 L. on examination, patient is currently not in volume overload hence decrease the dose of Lasix to 20 mg IV daily. Due to gradual improvement of respiratory function, consider continuing Solu-Medrol IV 40 mg Q 24 H for additional 5 days. Objective Vital Signs Date Time Temp Pulse Resp B/P (MAP) Pulse Ox O2 Delivery O2 Flow Rate FiO2 04/03/25 15:23 91 18 Nasal Cannula 4.0 04/03/25 15:15 95 40 04/03/25 06:00 97.8 119/79 (92) Result Diagram: 04/03/25 1102 04/03/25 1102 General- patient is alert , awake, oriented x4 HEENT: Atraumatic, normocephalic, EOMI, anicteric sclera ; pink conjunctiva Neck: Trachea midline. Supple, full range of motion, no JVD Cardiac: Regular rhythm, regular rate with 2/6 systolic ejection murmur at left lower sternal border Respiratory: Equal breath sounds bilaterally, no tachypnea, no wheezing ,rub or rales, Chest: No accessory muscle use, tender left lateral ribcage in the anterior axillary line; T6-T7 Gastrointestinal: Abdomen symmetric, non-distended, soft, non-tender, normal bowel sounds x4 quadrant, normoactive, no hepatosplenomegaly Musculoskeletal: Swelling and edema improved on dorsum of the right hand Neurological: Mental status exam: alert and consciousness, orientation, memory, speech - Cranial nerve test: Cranial nerves 2-12 intact - Motor system: Nutrition, Tone 3+, Power 5/5, no involuntary movements - Sensory system: Intact - Reflex testing: Biceps, triceps and knee reflexes 2+ - Cerebellar: Normal Skin: Warm and dry Coagulation Studies Laboratory Tests Test 03/13/25 04:42 03/20/25 08:40 03/20/25 20:55 D-Dimer 2.39 MG/L FEU (0-0.50) H D-Dimer Comment Activated Partial Thromboplast Time 40 SECONDS (22-32) *H Prothrombin Time 12.4 SECONDS (9.0-12.0) H INR International Normalized Ratio 1.2 INR Coagulation Comments Advance Care Planning Advanced Care plannin - 30 Minutes Assessment Assessment 54-year-old female with PMH of Hypothyroidism, Seizure presented to the ED in view of right upper extremity swollen pain tenderness. Patient is admitted for the evaluation management of right hand cellulitis. CT chest was reviewed which showed mass that was invading the chest wall, patient has a remote methamphetamine abuse (possible IV drug abuse). Patient underwent surgery for left upper lobe abscess draining into the chest wall on 03/20/2025. 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 Barlow) Initially fluid resuscitated, now on fluid restriction due to overload Plan: Continue Vancomycin IV (monitor trough levels) Monitor for recurrence (fever, WBC, imaging) Respiratory therapy and pulmonary hygiene Continue Solu-Medrol 40 mg IV q24h for additional 5 days, as patient is improving symptomatically (oxygen requirement is down from 6 L to 4 L today.) Monitor fluid status, I/O, daily weights Hold further fluid boluses unless signs of hypoperfusion arise Monitor for recurrence 2.MRSA Bacteremia cleared (initial positive on 03/13, negative 03/15) Likely secondary to empyema and right hand cellulitis PICC line placed. D/Miguel Ángel left IJV on 03/28/2025 Vertebral osteomyelitis/endocarditis ruled out Plan: Continue Vancomycin IV until 04/26 Daily assessment for signs of new infection Monitor renal function and adjust dose if needed No vegetations seen on echo, [place] criteria not met 3.Right hand cellulitis (Improving) initial swelling/tenderness; Tenosynovitis ruled out Orthopedics recommends hand elevation and movement Plan: Continue IV antibiotics (Vancomycin covers MRSA) Elevation and moving fingers recommended per Dr. Romero (orthopedic) Improving gradually 5.Acute hypoxemic respiratory failure improving Initially required 6L [place], now on 4L Plan: Wean oxygen as tolerated Continue steroids (Solu-Medrol taper) Pulmonary hygiene, chest physiotherapy Monitor SpO2, respiratory status closely 6.Hypokalemia (K = 2.8) resolved Potassium replacement per protocol Monitor K daily, especially as pt is on furosemide and steroids 8.Renal Function and Drug Dosing TAB, prerenal versus renal (vasomotor nephropathy) Creatinine: 1.04 (mild bump from baseline) Needs renal dosing review due to: Monitor Vancomycin troughs and Serum creatinine daily Adjust Gabapentin if Serum creatinine trends upward Reduced Furosemide to 20 mg IV daily Keppra adjust dose if Serum creatinine >1.5 Repeat urine lytes ordered 9.Seizure disorder On Keppra 750 mg BID and Lamotrigine 100 mg BID Plan: Continue current AEDs 10.Tinea capitis/cruris Has been on oral Terbinafine for 2 months Continue topical Terbinafine 11.Normocytic Anemia Hb: 8.7 (likely anemia of inflammation ) Hep B, HIV, COVID: Negative Monitor Hb Patient is currently on p.o. iron therapy, to be continued on discharge Discharge Planning Plan to discharge with PICC line to [facility] PT/OT recommended- post acute care Continue antibiotics per ID recs Code Status: full code status. DVT Prophylaxis: Heparin SQ Line/tubes: PICC line Prognosis: Guarded Earnestine Ng MD Internal Medicine Resident, PGY-2 Date of Service: Apr 03, 2025 Billing Provider: NATHAN GOLDSTEIN MD Common Visit Codes: [id number] INP/OBS CARE(HIGH) EARNESTINE NG, RES Apr 03, 2025 16:22 NATHAN GOLDSTEIN MD Apr 05, 2025 08:45
--- NOTE | 2025-04-03 23:41 | PROGRESS NOTE ---
Progress Note ID Providers to CC ~ Progress Note Progress Note: Antibiotic Days Vanco 21 Lines PICC Micro 03/13 Blood- MSSA 03/15 Blood- negative Subjective: Patient was still on 6L but was looking much better today- more alert and engaged in her care Objective Vitals: Afebrile, 90, 21, 124/81, 91% on 4L General: Alert, NAD CV: Regular RESP: Coarse sounds ABD: Soft, nontender EXT: Arm less swollen, legs still large LINES: PICC now Laboratory Tests 04/03/25 11:02 04/01 CXR No significant interval change Assessment // MRSA septicemia, source is likely lungs. No vegetation on 2D echo. Cleared 03/15, fairly easily // Right upper extremity cellulitis - some residual swelling but overall improved // Left chest abscess extending to the chest wall s/p resection and I&D // Respiratory failure due to fluid overload. Down to 6L [place] // TAB- Cr up slightly with diuresis // Substance abuse // Homelessness // No known antibiotic allergies Plan - Continue vancomycin until 04/26 - CBC, CMP, Vanc levels at least weekly - Continue diuresis, get steroids off - Dispo planning: Nicko Connor - Will continue to follow JEN BRASHER DO Apr 03, 2025 23:41
[2025-04-04] MEDS: VANCOMYCIN LEVEL IV ONE (02:30)
[2025-04-04 02:59] LABS: MEAN PLATELET VOLUME 7.3 FL (7.4-10.4); RED CELL DISTRIBUTION WIDTH 15.5 % (11.5-14.5)
[2025-04-04 03:14] LABS: CREATININE 0.98 MG/DL (0.40-0.90); TOTAL CARBON DIOXIDE 36.0 MMOL/L (24-32); eCRCL 59 ML/MIN; eGFR 59 ML/MIN
[2025-04-04 03:34] VITALS: PULSE 83; RESP 16; O2SAT 94
[2025-04-04 03:39] VITALS: PULSE 83; RESP 18
[2025-04-04] MEDS: vancomycin/NS 500MG ADD-VANT 100 ML IV ONE (04:18)
--- NOTE | 2025-04-04 06:45 | ELECTROCARDIOGRAPH REPORT ---
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 SAVITA Johnson Measurements Intervals [place] Rate: 83 P: 71 DE: 162 QRS: 71 QRSD: 93 T: 77 QT: 328 QTc: 386 Interpretive Statements Sinus rhythm Electronically Signed On 04-04-2025 17:34:[address] SAVITA Johnson Please click the below link to view image of tracing.
[2025-04-04 07:11] VITALS: PULSE 86; RESP 16; O2SAT 91
[2025-04-04 07:19] VITALS: PULSE 83; RESP 18
--- NOTE | 2025-04-04 19:32 | DISCHARGE SUMMARY-Residence ---
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 Yen Romero- Orthopedician Complications: None Condition on DC: Stable for transfer Discharge Summary: History of present illness 54 years old female with a history of hypothyroid, epilepsy,Chronic neuropathic pain, Anxiety Comes to Ed with Severe right hand swelling on dorsal surface wh ich is warm to touch and associated with pain. Patient reports having gradual pain in dorsum of right hand that started few weeks ago and from last 2 days it is exacerbated and today patient reports 10/10 burning pain, very sensitive to touch, pain is aggravated by the movement of the hand and she had tried [id number] ibuprofen but did not work, patient is a homeless lives in a car and she did not mention any recent travel, insect bite, or animal bites. Patient also complained left-sided chest discomfort chest 6/10 in intensity and sharp increases with breathing and radiates to the left arm Patient also mentioned left rib pain and had right foot swelling and pain on the dorsal surface Patient denies any fever, chills, cough, urinary problems, any recent infection Patient did not mention any similar complaints in the past, she did not have any past history of CAD or ND Hospital course 54 years old female with a history of hypothyroid, epilepsy,Chronic neuropathic pain, Anxiety Comes to Ed with Severe right hand swelling on dorsal surface. Patient was initially started on antibiotic and maintenance fluids for cellulitis. Patient additionally endorses pain in the left rib, CT chest: Left upper lobe peripheral mass with suspected invasion of the chest wall. The next day patient developed septic shock where was transferred to ICU for further treatment. Where patient started on albumin for septic shock with an initial bolus of 400 cc of 25% albumin and then a continuous infusion of 5% albumin at 75 mL/hour and levophed. Titrate Levophed to a mean arterial pressure of at least [address] showed: Complex collection at left anterior chest that appears to involve the left lung/pleural space with extension across chest wall to musculature with scattered foci of gas. The following day surgeon Dr. Sanchez was consulted because of patient left sternoclavicular joint infection and diagnosed has empyema necessitans- recommended percutaneous drainage vs resection of belkis abscess with chest wall debridement, proceed with robotic belkis wedge resection and drainage of chest wall abscess. Patient was continued on antibiotic after surgery. She was on 4 L oxygen through nasal cannula and started on Solu-Medrol, so we tapered off oxygen and Solu-Medrol. On the day of discharge patient denies any acute symptoms, no overnight acute event, Infectious Disease recommended continuation of IV vancomycin until 04/26/2025 And repeat x-ray shows improvement. Hence patient is discharged to [facility] with PICC line Laboratory Tests Test 04/03/25 11:02 04/04/25 02:40 White Blood Count 9.5 X10'3 8.9 X10'3 Red Blood Count 2.76 X10'6 2.57 X10'6 Hemoglobin 8.7 g/dl 8.2 g/dl Hematocrit 26.6 % 24.3 % Mean Corpuscular Volume 96.6 FL 94.6 FL Mean Corpuscular Hemoglobin 31.6 PG 31.9 PG Mean Corpuscular Hemoglobin Concent 32.8 g/dL 33.7 g/dL Red Cell Distribution Width 15.5 % 15.5 % Platelet Count 324 X10'3 273 X10'3 Mean Platelet Volume 7.3 FL 7.3 FL Neutrophils (%) (Auto) 80.9 % 80.9 % Lymphocytes (%) (Auto) 4.1 % 8.2 % Monocytes (%) (Auto) 4.1 % 4.2 % Eosinophils (%) (Auto) 10.5 % 6.3 % Basophils (%) (Auto) 0.4 % 0.4 % Neutrophils # (Auto) 7.7 X10'3 7.2 X10'3 Lymphocytes # (Auto) 0.4 X10'3 0.7 X10'3 Monocytes # (Auto) 0.4 X10'3 0.4 X10'3 Eosinophils # (Auto) 1.0 X10'3 0.6 X10'3 Basophils # (Auto) 0.0 X10'3 0.0 X10'3 CBC Comment Sodium Level 139 MMOL/L 136 MMOL/L Potassium Level 3.7 MMOL/L 3.5 MMOL/L Chloride Level 99 MMOL/L 97 MMOL/L Carbon Dioxide Level 37.0 MMOL/L 36.0 MMOL/L Anion Gap 3 3 Blood Urea Nitrogen 9 MG/DL 10 MG/DL Creatinine 1.04 MG/DL 0.98 MG/DL Estimated GFR/1.73 m2 55 ML/MIN 59 ML/MIN BUN/Creatinine Ratio 8.7 10.2 Glucose Level 119 MG/DL 86 MG/DL Calcium Level 8.4 MG/DL 8.0 MG/DL Total Bilirubin 0.4 MG/DL 0.4 MG/DL Aspartate Amino Transf (AST/SGOT) 29 U/L 29 U/L Alanine Aminotransferase (ALT/SGPT) 23 U/L 35 U/L Alkaline Phosphatase 137 IU/L 129 IU/L Total Protein 5.8 G/DL 5.6 G/DL Albumin 2.0 G/DL 1.9 G/DL Globulin 3.8 G/DL 3.7 G/DL Albumin/Globulin Ratio 0.5 0.5 Chemistry Comments Vancomycin Level Trough 21.3 ug/mL Vital Signs Date Time Temp Pulse Resp B/P (MAP) Pulse Ox O2 Delivery O2 Flow Rate FiO2 04/04/25 09:22 Nasal Cannula 4.0 04/04/25 07:19 83 18 04/04/25 07:11 91 44 04/03/25 22:00 97.9 141/84 (103) Physical examination General- patient is alert , awake, oriented x4 HEENT: Atraumatic, normocephalic, EOMI, anicteric sclera ; pink conjunctiva Neck: Trachea midline. Supple, full range of motion, no JVD Cardiac: Regular rhythm, regular rate with 2/6 systolic ejection murmur at left lower sternal border Respiratory: Equal breath sounds bilaterally, no tachypnea, no wheezing ,rub or rales, Chest: No accessory muscle use, tender left lateral ribcage in the anterior axillary line; T6-T7 Gastrointestinal: Abdomen symmetric, non-distended, soft, non-tender, normal bowel sounds x4 quadrant, normoactive, no hepatosplenomegaly Musculoskeletal: Swelling and edema improved on dorsum of the right hand Neurological: Mental status exam: alert and consciousness, orientation, memory, speech - Cranial nerve test: Cranial nerves 2-12 intact - Motor system: Nutrition, Tone 3+, Power 5/5, no involuntary movements - Sensory system: Intact - Reflex testing: Biceps, triceps and knee reflexes 2+ - Cerebellar: Normal Skin: Warm and dry Imaging during hospitalization Chest x-ray: Focal opacity within the left apex measuring approximately 5.0 cm consistent with focal consolidation versus mass. CT of the chest with contrast may be of further benefit in characterizing this finding. Vascular ultrasound: No venous thrombus identified in the RIGHT upper extremity vessels evaluated above. Contralateral subclavian vein is patent. Foot x-ray-There is no evidence of acute fracture or dislocation.Mild generalized soft tissue edema. Prior osteotomy at the 1st metatarsal head and neck with screw in place. Upper extremity CT: No acute fracture or dislocation.Generalized soft tissue edema.No abscess. Echocardiogram: Overall LVEF is about 60%. Upper limit normal LV size with normal wall thickness. Overall systolic function is normal. RV is normal size and function. Estimated PA systolic pressure of 46 mm of mercury. Left atrium is mildly dilated. Mobile interatrial septum - no flow detected. Trileaflet AV appears mildly sclerotic without stenosis or insufficiency. Normal MV annulus with thickened leaflets without stenosis. Moderate regurgitation (best apically/subcostally). TDS Doppler? TV appears structurally normal with moderate regurgitation. Normal PV without stenosis, physiologic insufficiency. (best subcostally) Normal pericardium. No effusion. CTA chest/thorax- No pulmonary embolism. Left upper lobe peripheral mass with suspected invasion of the chest wall. The diagnosis of exclusion is a primary pulmonary malignancy. Tissue sampling recommended. Soft tissue USG-No definite sonographic abnormality is identified in the soft tissues of the right hand Chest x-ray-Right central venous catheter in satisfactory position. Chest CT-Significant abnormal complex presumed fluid collection along the left anterior possible pleural space with the left chest wall invasion propagating into the left pectoralis minor muscle belly. Interspersed gas. Medium bilateral pleural effusions with patchy bilateral upper lobe ground- glass and differential includes pneumonia versus pulmonary edema.Upon comparison with prior examination dated 03/13/25, overall size of the abscess is largely unchanged. Patchy bilateral upper lobe opacities are new since prior examination with increased pleural effusions. Given location of the abscess versus necrotic mass, unlikely arising from the sternoclavicular joint. Recommend appropriate sampling and drainage as deemed necessary. Malignancy with necrosis is not excluded. Cervical spine MRI-No evidence of discitis osteomyelitis.Prevertebral edema without associated enhancement. Findings may be reactive edema.Bilateral pleural effusions. Lumbar spine MRI-No significant posterior disc disease, central canal or neural foraminal narrowing. Head CT-No CT evidence of an acute intracranial abnormality. Small amount of soft tissue swelling over the left forehead. Chest x-ray: Central pulmonary vascular congestion. Possible alveolar and interstitial edema with large area of oval-shaped opacification of the left upper lung measuring 5.8 cm.Normal cardiac size,No acute osseous abnormality Right internal jugular central venous catheter is coiled and distal tip extends up towards its insertion point. Recommend repositioning. Chest x-ray- Status post interval extubation. Remaining lines and tubes unchanged.Small bilateral pleural effusions and stable appearing patchy left mid lung zone and right basilar pulmonary airspace disease. Chest CT-Interval development of mild multiple left pleural extra air-fluid collections which could represent small hydro pneumothoraces, extrapleural air- fluid collections measuring 1.4 x 4 cm, 2.7 x 1.1 cm, 4 x 1.9 cm. These course along the left upper, lateral lung, anterior to the mediastinum/pulmonary artery. Rim enhancing collection left anterior chest wall extending into the left lung/ pleural cavity. Component within the anterior chest wall measures 3.3 x 1.4 cm and may represent abscess. Moderate right and small left pleural effusions. Diffuse bilateral pulmonary airspace consolidation and ground-glass disease likely secondary to combination of infection / inflammatory / edematous etiologies.1 Mediastinal / hilar lymphadenopathy. Chest x-ray:Interval removal of the left chest tubes. No other significant interval change as described above. Vascular ultrasound- No right or left femoropopliteal venous thrombosis.Bilateral subcutaneous edema. Extensive /diffuse soft tissue edema. Prominent left chest wall soft tissue emphysema. Chest x-ray-03/27/2025:left upper and lower lobe consolidation.Left pleural fluid. chest x-ray-04/01/2025-No significant interval change Discharge instructions: As per ID recommendation patient should continue vancomycin until 04/26/2025 Follow up with PCP in 1 week with a CBC/CMP Follow-up with ID specialist and surgeon Continue prednisone taper as prescribed event 30 mg p.o. daily for 3 days, then 20 mg p.o. daily for next 3 days then 10 mg p.o. daily for 3 days, then 5 mg p.o. daily and then stop , and incentive spirometry q.1h while awake Continue tablet Lasix 20 mg p.o. daily for 5 days Follow up with neurologist in 2 weeks for antiepileptic medication *Problems/Diagnosis: (1) Cellulitis Status: Acute (2) Septic shock (3) MRSA bacteremia (4) Leukocytosis (leucocytosis) (5) Acute hypoxic respiratory failure (6) Hypokalemia (7) Vasomotor nephropathy (8) TAB (acute kidney injury) (9) Seizure disorder (10) Tinea capitis (11) Normocytic anemia (12) Pyothorax with fistula Total Time Spent on D/C: Up to 30 Minutes Date of Service: Apr 04, 2025 Billing Provider: NATHAN GOLDSTEIN MD Problem Qualifiers (1) Cellulitis: Site of cellulitis: extremity Site of cellulitis of extremity: upper extremity Laterality: right Qualified Codes: L03.113 - Cellulitis of right upper limb CARLO CARBALLO, RES Apr 04, 2025 19:32
[2025-04-05] MEDS ORDERED: vancomycin/NS 1 GM ADD-VANTAGE 250 ML IV SCH (04:00)
[2025-04-08] MEDS ORDERED: VANCOMYCIN LEVEL IV ONE (03:30)
== END 2025-04-04 13:42 | DRG 853 ==
LOC: ER 02:10 → ED HOLD 07:52 → PCU 3S 14:20 → CICU 2S 03-14 23:17 → PCU 3S 03-15 17:49 → CICU 2S 03-20 17:56 → PCU 3S 03-22 22:20 → SUR 3N 03-28 14:55
PROVIDERS: ADMIT Family Medicine; ATTEND Family Medicine
PROC: B32T1ZZ Computerized Tomography (CT Scan) of Left Pulmonary Artery using Low Osmolar Contrast (ICD-10-PCS; 2025-03-14)
PROC: B3201ZZ Computerized Tomography (CT Scan) of Thoracic Aorta using Low Osmolar Contrast (ICD-10-PCS; 2025-03-14)
PROC: B32S1ZZ Computerized Tomography (CT Scan) of Right Pulmonary Artery using Low Osmolar Contrast (ICD-10-PCS; 2025-03-14)
PROC: 05HB33Z Insertion of Infusion Device into Right Basilic Vein, Percutaneous Approach (ICD-10-PCS; 2025-03-14)
PROC: B54MZZA Ultrasonography of Right Upper Extremity Veins, Guidance (ICD-10-PCS; 2025-03-14)
PROC: B548ZZA Ultrasonography of Superior Vena Cava, Guidance (ICD-10-PCS; 2025-03-16)
PROC: 02HV33Z Insertion of Infusion Device into Superior Vena Cava, Percutaneous Approach (ICD-10-PCS; 2025-03-19)
PROC: B548ZZA Ultrasonography of Superior Vena Cava, Guidance (ICD-10-PCS; 2025-03-19)
PROC: 0WB Anatomical Regions, General, Excision (ICD-10-PCS; 2025-03-20)
PROC: 0W9B30Z Drainage of Left Pleural Cavity with Drainage Device, Percutaneous Approach (ICD-10-PCS; 2025-03-20)
PROC: 0BH18EZ Insertion of Endotracheal Airway into Trachea, Via Natural or Artificial Opening Endoscopic (ICD-10-PCS; 2025-03-20)
PROC: 5A1945Z Respiratory Ventilation, 24-96 Consecutive Hours (ICD-10-PCS; 2025-03-20)
PROC: 8E0W4CZ Robotic Assisted Procedure of Trunk Region, Percutaneous Endoscopic Approach (ICD-10-PCS; 2025-03-20)
PROC: 30233N1 Transfusion of Nonautologous Red Blood Cells into Peripheral Vein, Percutaneous Approach (ICD-10-PCS; 2025-03-20)
PROC: 0BBG4ZZ Excision of Left Upper Lung Lobe, Percutaneous Endoscopic Approach (ICD-10-PCS; principal; 2025-03-20 17:35)
PROC: 5A0935A Assistance with Respiratory Ventilation, Less than 24 Consecutive Hours, High Flow/Velocity Cannula (ICD-10-PCS; 2025-03-28)
PROC: 02HV33Z Insertion of Infusion Device into Superior Vena Cava, Percutaneous Approach (ICD-10-PCS; 2025-03-28)
PROC: 4A02X4A Measurement of Cardiac Electrical Activity, Guidance, External Approach (ICD-10-PCS; 2025-03-28)
PROC: 5A0935A Assistance with Respiratory Ventilation, Less than 24 Consecutive Hours, High Flow/Velocity Cannula (ICD-10-PCS; 2025-03-29)
PROC: 5A0935A Assistance with Respiratory Ventilation, Less than 24 Consecutive Hours, High Flow/Velocity Cannula (ICD-10-PCS; 2025-03-30)
PROC: 5A0935A Assistance with Respiratory Ventilation, Less than 24 Consecutive Hours, High Flow/Velocity Cannula (ICD-10-PCS; 2025-03-31)
DX: A41.02 Sepsis due to Methicillin resistant Staphylococcus aureus (principal); J85.2 Abscess of lung without pneumonia; J96.01 Acute respiratory failure with hypoxia; R65.21 Severe sepsis with septic shock; L03.113 Cellulitis of right upper limb; E46 Unspecified protein-calorie malnutrition; Z59.00 Homelessness unspecified; E87.1 Hypo-osmolality and hyponatremia; L02.213 Cutaneous abscess of chest wall; N17.9 Acute kidney failure, unspecified; C34.12 Malignant neoplasm of upper lobe, left bronchus or lung; Z20.822 Contact with and (suspected) exposure to COVID-19; J43.9 Emphysema, unspecified; F15.10 Other stimulant abuse, uncomplicated; F41.9 Anxiety disorder, unspecified; E87.6 Hypokalemia; G40.909 Epilepsy, unspecified, not intractable, without status epilepticus; E03.9 Hypothyroidism, unspecified; G62.9 Polyneuropathy, unspecified; B35.0 Tinea barbae and tinea capitis; E86.0 Dehydration; E87.70 Fluid overload, unspecified; F17.200 Nicotine dependence, unspecified, uncomplicated; I73.00 Raynaud's syndrome without gangrene; Z88.8 Allergy status to other drugs, medicaments and biological substances; Z88.5 Allergy status to narcotic agent; Z79.899 Other long term (current) drug therapy; Z90.710 Acquired absence of both cervix and uterus; Z98.84 Bariatric surgery status
CPT/HCPCS: 36569; 93306; 96365; 96367; 96372; 96375; 99285; Z7506; Z7508; 36410; 36415; 36430; 36600; 70450; 71045; 71250; 71260; 71275; 72141; 72148; 73201; 73630; 76882; 76937; 76942; 80048; 80053; 80202; 80305; 81003; 81025; 82140; 82570; 82803; 82948; 83036; 83605; 83735; 83930; 83935; 84100; 84133; 84145; 84300; 84443; 84484; 85007; 85018; 85025; 85379; 85610; 85651; 85730; 86140; 86703; 86704; 86705; 86885; 86900; 86901; 86920; 87040; 87077; 87081; 87186; 87340; 87811; 88304; 88307; 93005; 93970; 93971; 94002; 94640; 94760; 97110; 97116; 97161; 97530; A4333; A4615; A4618; A4620; A6196; A6212; A6213; A6253; A6258; A6402; A6449; A7000; A7048; C1751; C1758; C9250; C9254; G0378; J0666; J0696; J1171; J1200; J1644; J1885; J1938; J1953; J2003; J2250; J2270; J2274; J2405; J2543; J2704; J2919; J3010; J3360; J3373; J3375; J3490; J7030; J7040; J7042; J7050; J7070; J7120; P9016; P9045; P9047; Q9967